=== PATIENT | female | born 1940 ===

== ENCOUNTER 2022-11-25 10:44 | Emergency (ER) | payer MEDICARE, OTHER, SELFPAY ==
--- NOTE | ~2022-11-25 | CT_ITS ---
EXAMINATION: CT ABDOMEN AND PELVIS WITH CONTRAST CLINICAL INFORMATION: Abdominal pain. COMPARISON: CT abdomen/pelvis 05/06/2022. TECHNIQUE: Multidetector volumetric images were obtained from the superior aspect of the liver through the pubic symphysis following administration 85 mL of Omnipaque 350 intravenous contrast. Sagittal and coronal reformatted images were obtained on the technologist's workstation. Oral contrast: No This CT examination was performed using dose optimization techniques as appropriate, variously including the following: *Automated exposure control *Adjustment of mA and/or kV according to patient size (this includes techniques or standardized protocols for targeted exams where dose is matched to indication/reason for exam; i.e. extremities or head) *Use of iterative reconstruction technique DLP: 511 mGy-cm. FINDINGS: LUNG BASES: Bibasilar subsegmental atelectasis versus scarring. No focal consolidation or pleural effusion. A micronodule in the medial right lower lobe, possibly calcified (3:45) is unchanged compared to 05/06/2022. LIVER, GALLBLADDER, AND BILIARY TREE: The liver is enlarged measuring 18 cm craniocaudally, increased from 17 cm and demonstrates decreased attenuation in comparison to the spleen suggesting hepatic steatosis. No focal liver lesion noted. Cholecystectomy. No biliary ductal dilatation. PANCREAS: Unremarkable. SPLEEN: The spleen measures 11.6 cm anterior to posteriorly, increased from 10 cm. No focal lesion. ADRENAL GLANDS: Unremarkable. KIDNEYS AND URETERS: Multifocal areas of cortical thinning/scarring with innumerable bilateral nonobstructive renal calculi and medullary nephrocalcinosis, largest in the lower pole of the left kidney measuring 5 mm (4:53). Symmetric nephrograms. Water density cyst in the posteromedial left kidney (2:31) for which no imaging followup is recommended. No hydronephrosis. No significant perinephric fat stranding. BLADDER: Unremarkable. GASTROINTESTINAL TRACT: Severe colonic diverticulosis with equivocal very mild pericolonic fat stranding in the sigmoid and rectosigmoid junction (4:37 and 4:56). Small hiatal hernia. The stomach and the small bowel are nondilated. The appendix is not definitely visualized; however, there are no regional inflammatory changes in the right lower quadrant to suspect acute appendicitis. ABDOMINAL WALL: No significant hernia is appreciated. LYMPH NODES: Mesenteric fatty haziness in the upper abdomen (2:35) is slightly increased compared to 05/06/2022. There are associated prominent but subcentimeter short axis mesenteric lymph nodes, also slightly increased in size and number. Scattered additional prominent but subcentimeter in short axis retroperitoneal and pelvic lymph nodes are not convincingly changed. VASCULAR: Abdominal aorta is of normal diameter with scattered atherosclerotic disease. Redemonstration of calcifications associated with the right gonadal vein/right ovary, unchanged. PELVIC VISCERA: Hysterectomy. OSSEOUS STRUCTURES: No acute or aggressive-appearing osseous abnormalities. Degenerative changes of the spine. CT/CT abdomen pelvis w IV con IMPRESSION: 1. Severe colonic diverticulosis with equivocal very mild pericolonic fat stranding in the sigmoid and rectosigmoid junction, raising the possibility of acute diverticulitis. 2. Increased mesenteric fatty haziness and increased size and number of prominent mesenteric lymph nodes, nonspecific. These findings could be seen in the setting of mesenteric panniculitis. 3. Increased hepatomegaly and increased size of the spleen. 4. Nonobstructive bilateral renal calculi and medullary nephrocalcinosis.
[2022-11-25 10:51] VITALS: BP 138/82; BP 154/89; PULSE 81; PULSE 94; RESP 16; TEMP 36.6; O2SAT 98; O2SAT 99; BMI 29.2
[2022-11-25 11:06] LABS: MANUAL DIFF FLAG NO
[2022-11-25 11:16] LABS: Basophils Percent Auto 0.3 % (0-2); Eosinophils Absolute Auto 0.1 X10*3/uL (0.0-0.4); Eosinophils Percent Auto 1.4 % (0-4); Hematocrit 40.6 % (37.0-47.0); Hemoglobin 13.7 g/dl (12.0-16.0); Imm Gran Abs Auto 0.01 X10*3/uL (0.00-0.03); Imm Gran Pct Auto 0.2 % (0.0-0.4); Lymphocytes Absolute Auto 1.5 X10*3/uL (1.2-4.9); Lymphocytes Percent Auto 24.1 % (20-40); Mean Corpuscular HGB Conc 33.7 g/dl (31.0-35.0); Mean Corpuscular Hemoglobin 31.9 pg (27.0-33.0); Mean Corpuscular Volume 94.4 fL (80.0-98.0); Mean Platelet Volume 10.2 fL (9.4-12.3); Monocytes Absolute Auto 0.7 X10*3/uL (0.1-1.2); Monocytes Percent Auto 11.7 % (2-11); Neutrophils Absolute Auto 3.9 x10*3/uL (2.0-8.3); Neutrophils Percent Auto 62.3 % (45-73); Platelet Count 231 X10*3/uL (160-400); Red Cell Distribution Width 13.8 % (11.0-16.0); White Blood Count 6.3 X10*3/uL (4.8-10.8)
[2022-11-25 11:55] LABS: OBS Int Ctl Valid YES; OBS1 NEGATIVE (NEGATIVE)
--- NOTE | 2022-11-25 12:00 | ED.NAVMDI ---
HPI - Nausea/Vomiting/Diarrhea General Chief complaint: Nausea/Vomiting/Diarrhea Stated complaint: nausea, abd pain x3 days from [facility] living Time Seen by Provider: 11/25/22 11:05 Source: patient History of Present Illness HPI Narrative: Patient with 3 days of nausea vomiting diarrhea and abdominal pain. Her had a similar syndrome prior to her getting sick. She is feeling very fatigued. She is concerned that her potassium may be low she normally needs to take potassium supplementation and has been unable to take any oral medication for the past 3 days secondary to the above symptoms. No fevers or chills. Her diarrhea she says has been black but she has been taking Pepto-Bismol and attributed to that No history of GI bleed Related Data Previous Rx's Medication Instructions Recorded ondansetron 4 mg disintegrating 4 mg PO Q8H PRN nausea and 11/25/22 tablet vomiting #14 tabs Allergies Allergy/AdvReac Type Severity Reaction Status Date / Time No Known Allergies Allergy Verified 11/25/22 10:59 Review of Systems Constitutional: Comments: General malaise and fatigue. No fevers or chills Cardiovascular: Comments: No chest pain Respiratory: Comments: No cough or dyspnea Gastrointestinal: Gastrointestinal: Reports as per HPI Genitourinary: Genitourinary: Reports no additional female genitourinary complaints Musculoskeletal: Musculoskeletal: Reports no additional musculoskeletal complaints Integumentary/Breasts: Comments: No rashes skin color changes Neurologic: Comments: No focal weakness PMFSH Social History Social History Alcohol intake: current Alcohol intake frequency: holidays/special occasions only Smoked in Last 30 Days: No Use of substances other than those prescribed or required for medical reasons: No Advance Directives: Yes Advance Directives on File: No Physical Exam Vital Signs: Vital Signs: Last Vital Signs Temp 98.2 F 11/25/22 14:10 Pulse 73 11/25/22 14:10 Resp 12 11/25/22 14:10 BP 129/82 11/25/22 14:10 Pulse Ox 98 11/25/22 14:10 O2 Del Method 11/25/22 14:10 BMI result Body Mass Index 29.2 Const: Other: Awake and alert. No acute distress Resp: Other: Clear and equal bilaterally without wheezes rales rhonchi Cardio: Other: Regular rate and rhythm without murmurs rubs or gallops GI: Other: Soft. Diffusely tender. No guarding or rebound. Nondistended. Skin: Other: Warm pink and dry Neuro: Other: No focal deficits Medications Administered Discontinued Medications Generic Name Dose Route Start Last Admin Trade Name Casey PRN Reason Stop Dose Admin Sodium Chloride 500 mls @ 500 mls/hr 11/25/22 12:00 11/25/22 14:01 Ns IV 11/25/22 12:59 Infused .Q1H TRINO Infusion Iohexol 100 ml 11/25/22 13:00 11/25/22 13:00 Iohexol 350 Mg/Ml 100 Ml Infus..Btl IV 11/25/22 13:01 85 ml ONCE ONE Administration Ondansetron HCl 4 mg 11/25/22 11:56 11/25/22 12:34 Ondansetron Hcl 4 Mg/2 Ml Vial IVPUSH 11/25/22 11:57 4 mg ONCE ONE Administration Medical Decision Making Medical Decision Making MDM Narrative: Patient with likely viral gastroenteritis which has been prominent in her assisted living including her . The given amount of tenderness with need to rule out colitis. Dehydration likely Electrolyte abnormality possible Await for CMP results. Anticipate CT scan with IV contrast if creatinine is normal. IV fluids ordered. Zofran for nausea. 16:21. CT scan shows possible mild colonic thickening with large amounts of diverticulosis. She does not have focal pain however. And especially in the setting of severe diarrhea which has been watery, and similar to multiple other residents in the assisted living, I do not think this is consistent with diverticulitis. It is more likely viral colitis. No antibiotics needed at this point. She is hungry and would like to eat and drink. Given this, she is stable for discharge home. Tylenol for headache. Lab Data 11/25/22 10:59 11/25/22 10:59 Labs: Lab Results 11/25/22 11/25/22 11/25/22 Range/Units 10:59 11:45 11:48 WBC 6.3 (4.8-10.8) X10*3/uL RBC 4.30 (4.20-5.50) X10*6/uL Hgb 13.7 (12.0-16.0) g/dl Hct 40.6 (37.0-47.0) % MCV 94.4 (80.0-98.0) fL MCH 31.9 (27.0-33.0) pg MCHC 33.7 (31.0-35.0) g/dl RDW 13.8 (11.0-16.0) % Plt Count 231 (160-400) X10*3/uL MPV 10.2 (9.4-12.3) fL Immature Gran % (Auto) 0.2 (0.0-0.4) % Neut % (Auto) 62.3 (45-73) % Lymph % (Auto) 24.1 (20-40) % [place] % (Auto) 11.7 H (2-11) % Eos % (Auto) 1.4 (0-4) % Baso % (Auto) 0.3 (0-2) % Lymph # (Auto) 1.5 (1.2-4.9) X10*3/uL [place] # (Auto) 0.7 (0.1-1.2) X10*3/uL Eos # (Auto) 0.1 (0.0-0.4) X10*3/uL Baso # (Auto) 0.0 (0.0-0.2) X10*3/uL Abs Immat Gran (auto) 0.01 (0.00-0.03) X10*3/uL Absolute Neuts (auto) 3.9 (2.0-8.3) x10*3/uL Absolute Nucleated RBC 0.000 (0.0-0.012) X10*3/uL Nucleated RBC % (auto) 0.0 (0.0-0.2) /100WBC Sodium 144 (135-145) mmol/L Potassium 4.0 (3.3-5.1) mmol/L Chloride 107 (96-108) mmol/L Carbon Dioxide 30 H (22-29) mmol/L Anion Gap 11 L (12-20) BUN 11 (9-16) mg/dL Creatinine 0.72 (0.5-1.4) mg/dL Estim Creat Clear Calc 54.9 Estimated GFR > 60 Random Glucose 138 H (60-115) mg/dL Calcium 9.4 (8.4-10.2) mg/dL Total Bilirubin 1.9 H (0.0-1.0) mg/dL AST 57 H (5-31) U/L ALT 52 H (0-31) U/L Alkaline Phosphatase 50 (39-117) U/L Total Protein 6.3 L (6.5-8.0) g/dL Albumin 4.1 (3.5-5.0) g/dL Stool Occult Blood NEGATIVE (NEGATIVE) Discharge Plan Discharge Clinical Impression: Gastroenteritis Patient Disposition: Home, Self-Care Instructions: Gastroenteritis (ED) Additional Instructions: Drink plenty of liquids. Return if worse or if you experience significant abdominal pain. Zofran is for nausea. Prescriptions: New ondansetron 4 mg tablet,disintegrating 4 mg PO Q8H PRN (Reason: nausea and vomiting) Qty: 14 0RF
[2022-11-25 12:08] LABS: Alanine Aminotransferase 52 U/L (0-31); Albumin Level 4.1 g/dL (3.5-5.0); Alkaline Phosphatase 50 U/L (39-117); Anion Gap 11 (12-20); Aspartate Amino Transferase 57 U/L (5-31); Bilirubin Total 1.9 mg/dL (0.0-1.0); Blood Urea Nitrogen 11 mg/dL (9-16); Calcium 9.4 mg/dL (8.4-10.2); Carbon Dioxide 30 mmol/L (22-29); Chloride 107 mmol/L (96-108); Creatinine Clr Calc Pharmacy 54.9; Estimated Glomerular Filt Rate > 60; Glucose Random 138 mg/dL (60-115); Sodium 144 mmol/L (135-145); Total Protein 6.3 g/dL (6.5-8.0)
[2022-11-25] MEDS: ondansetron HCL 4 MG/2 ML VIAL IVPUSH (12:34)
[2022-11-25] MEDS: 0.9 % Sodium Chloride 500 ML IV (12:34)
[2022-11-25 12:35] VITALS: BP 133/72; PULSE 69; RESP 18; O2SAT 97
[2022-11-25] MEDS: iohexoL 350 MG/ML 100 ML INFUS..BTL IV (13:00)
[2022-11-25 14:10] VITALS: BP 129/82; PULSE 73; RESP 12; TEMP 36.8; O2SAT 98
[2022-11-25] MEDS: Acetaminophen 325 MG TABLET 650 MG PO (16:48)
== END 2022-11-25 16:50 | disposition home or self-care (01) ==
PROVIDERS: Emergency Provider Emergency Medicine
DX: K52.9 Noninfective gastroenteritis and colitis, unspecified (principal); R11.2 Nausea with vomiting, unspecified
CPT/HCPCS: 36415; 74177; 80053; 82272; 85025; 96361; 96374; 99284; 99285; J2405; Q9967

== ENCOUNTER 2023-06-18 19:18 | Emergency (ER) | payer MEDICARE, OTHER, SELFPAY ==
--- NOTE | ~2023-06-18 | CT_ITS ---
EXAMINATION: CT CERVICAL SPINE WITHOUT CONTRAST CLINICAL INFORMATION: Fall. COMPARISON: None available. TECHNIQUE: 3 minutes thin axial and reformatted 2 mm thin sagittal and coronal images of cervical spine were obtained. This CT examination was performed using dose optimization techniques as appropriate, variously including the following: *Automated exposure control *Adjustment of mA and/or kV according to patient size (this includes techniques or standardized protocols for targeted exams where dose is matched to indication/reason for exam; i.e. extremities or head) *Use of iterative reconstruction technique DLP: 547 mGy-cm FINDINGS: On sagittal reconstructed images there is maintained cervical lordosis. There is grade 1 retrolisthesis listhesis C5 over C6. Rest the vertebral alignment is normal. There is loss of C5-C6 and C6-C7 disc heights with mild ventral and posterior spondylosis. The craniovertebral junction and the C1-C2 alignment is normal. There is no visible acute fracture, dislocation or subluxation seen. The craniovertebral junction and C1-C2 alignment is normal. There is moderate right C3-C4 and C4-C5 facet joint arthropathy and hypertrophy. The prevertebral and paravertebral soft tissues are normal. The bronchial airway is widely patent. Lung apices are clear. The thyroid lobes are symmetrical and normal. There is mild left TM joint arthropathy. CT/CT cervical spine wo IV con IMPRESSION: Grade 1 retrolisthesis C5 over C6 with spondylosis and degenerative disc changes C5-C6 and C6-C7 disc levels. No visible acute fracture, dislocation or subluxation seen. Fleischner guidelines were followed.
--- NOTE | ~2023-06-18 | XR_ITS ---
EXAMINATION: XR KNEE, LEFT CLINICAL INFORMATION: Fall, pain. COMPARISON: None available. TECHNIQUE: Four views of the left knee. FINDINGS: There is a total knee prosthesis with the prosthetic components in satisfactory alignment. There is no acute fracture or dislocation. There is no abnormal joint effusion. XR/XR knee LT 4V IMPRESSION: Total left knee prosthesis is in satisfactory alignment. No visible acute fracture or dislocation seen.
--- NOTE | ~2023-06-18 | CT_ITS ---
EXAMINATION: CT HEAD WITHOUT CONTRAST CLINICAL INFORMATION: Fall, head strike. COMPARISON: None available. TECHNIQUE: Contiguous axial imaging was performed from the skull base to vertex without intravenous administration of contrast. This CT examination was performed using dose optimization techniques as appropriate, variously including the following: *Automated exposure control *Adjustment of mA and/or kV according to patient size (this includes techniques or standardized protocols for targeted exams where dose is matched to indication/reason for exam; i.e. extremities or head) *Use of iterative reconstruction technique DLP: 678 mGy-cm FINDINGS: There is no acute intra-axial, extra-axial bleed, masses or midline shift. There is no acute infarct in evolution. There is no edema. The rao to white matter differentiation is maintained. The lateral ventricles are symmetrical in size and configuration but mildly enlarged. Bone windows reveal no calvarial abnormality. There is no scalp soft tissue abnormality. Bilateral paranasal sinuses and mastoid air cells are well-aerated. CT/CT head/brain wo IV con IMPRESSION: No acute intracranial process seen.
[2023-06-18 19:33] VITALS: BP 149/70; PULSE 68; RESP 18; O2SAT 98; BMI 28.7
[2023-06-18] MEDS: Acetaminophen 325 MG TABLET 975 MG PO (20:11)
--- NOTE | 2023-06-18 20:50 | ED.FALL ---
HPI - Fall General Chief Complaint: Fall Stated Complaint: fall w/head/ neck pain Time Seen by Provider: 06/18/23 20:50 Source: patient and EMS Mode of arrival: EMS Limitations: no limitations History of Present Illness HPI Narrative: 83-year-old female came in for evaluation after a mechanical fall. Patient was walking her dog when she tripped on uneven area of the sidewalk patient fell forward tried to ease her fall with both hands but fell down hitting her left side of the face. No LOC, complaining of forehead pain. Right-sided neck pain, no upper extremities weakness or numbness, no chest pain, no shortness of breath, no abdominal pain. Left knee pain patient s/p left knee arthroplasty. Not on AC. Related Data Previous Rx's Medication Instructions Recorded ondansetron 4 mg disintegrating 4 mg PO Q8H PRN nausea and 11/25/22 tablet vomiting #14 tabs Allergies Allergy/AdvReac Type Severity Reaction Status Date / Time No Known Allergies Allergy Verified 11/25/22 10:59 Review of Systems Review of Systems: All other systems are reviewed and are negative Constitutional: Reports as per HPI and Reports no additional constitutional complaints Eyes: Reports as per HPI and Reports no additional eye complaints Reports system reviewed and no additional complaints, except as documented Cardiovascular: Reports as per HPI and Reports no additional cardiovascular complaints Respiratory: Reports as per HPI and Reports no additional respiratory complaints Gastrointestinal: Reports as per HPI and Reports no additional gastrointestinal complaints Genitourinary: Reports no additional female genitourinary complaints Musculoskeletal: Reports no additional musculoskeletal complaints Skin/Breast: Reports system reviewed and no additional complaints, except as docu Psychiatric: Reports no additional psychiatric complaints Endocrine: Reports no additional endocrine complaints Hematologic/Lymphatic: Reports no additional hematologic/lymphatic complaints Allergic/Immunologic: Reports no additional allergic/immunologic complaints Reports system reviewed and no additional complaints, except as documented and Reports Abnormal speech present [facility] Social History Social History Alcohol intake: current Alcohol intake frequency: holidays/special occasions only Advance Directives: No Advance Directives Information Provided: No Physical Exam Vital Signs: Vital Signs: Last Vital Signs Pulse 68 06/18/23 19:33 Resp 18 06/18/23 19:33 BP 149/70 H 06/18/23 19:33 Pulse Ox 98 06/18/23 19:33 O2 Del Method Room Air 06/18/23 19:33 BMI result Body Mass Index 28.7 Vital signs have been reviewed and appear to be correct. Blood pressure elevated. Heart rate normal. Respiratory rate normal. Temperature normal. Oxygen saturation normal. Appearance: Alert. Oriented X3. No acute distress. Head: Small hematoma to above upper lip, forehead with small area of ecchymosis, left central upper incisor is slightly loose. Eyes: PERRLA. EOMI. Conjunctiva and sclera normal. Eyelids normal. ENT: TM's Normal. Pharynx normal. Uvula midline. Moist mucous membranes. No trismus noted. No drooling noted. No muffled voice noted. Neck: Normal inspection. Neck supple. FROM. No adenopathy. Thyroid Normal. No meningeal signs. No neck mass noted. CVS: Normal heart rate and rhythm. Heart sound normal. No murmurs noted. Pulses normal throughout. Respiratory: No respiratory distress. Painless inspiration. Breath sounds normal. No wheezes/rales/rhonchi noted. Chest nontender. No accessory muscle usage noted or decreased air movement noted. Abdomen: Soft and nontender. Bowel sounds normal in all 4 quadrants. No distention noted. No organomegaly noted. No visible injury noted. Back: No CVA tenderness. Full range of motion noted. Skin: Skin warm and dry. Normal skin color. Normal skin turgor. No rashes/lesions/lacerations noted. Extremities: No lower extremity edema. Extremities exhibit normal range of motion. Extremities nontender. Neuro: Oriented X 3. Cranial nerve exam: II-XII are grossly intact No motor deficit. No sensory deficit. Reflexes normal. Course Course Course Narrative: 83-year-old female s/p mechanical fall while she was walking her dog, neuro exam is intact with a GCS of [address] head [address] for intracranial pathology. Cervical spine is also unremarkable for fracture or subluxation. Patient S/P left knee arthroplasty appear intact on the x-ray. Medications Administered Discontinued Medications Generic Name Dose Route Start Last Admin Trade Name Freq PRN Reason Stop Dose Admin Acetaminophen 975 mg 06/18/23 20:00 06/18/23 20:11 Acetaminophen 325 Mg Tablet PO 06/18/23 20:01 975 mg ONCE ONE Administration Medical Decision Making Differential Diagnosis Differential Diagnoses: The differential diagnosis associated with the presentation includes ( Intracranial bleed, skull fracture, cervical spine fracture, cervical spine subluxation, left knee fracture.) Admission/Observation Consideration of admission/observation: Escalation of care including admission/observation considered Independent Interpretation I performed an independent interpretation of an: Plain X-Ray ( Left knee x-ray: No acute fracture or dislocation.) and CT Scan ( Head/C-spine: No acute intra cranial pathology, no cervical spine fracture or subluxation.) Radiology Impression Discussion of test interpretation with radiology: I have reviewed the radiologist's reading. Discharge Plan Discharge Clinical Impression: Closed head injury, Contusion of knee, left Patient Disposition: Home, Self-Care Instructions: Head Injury (ED) Prescriptions: No Action ondansetron 4 mg tablet,disintegrating 4 mg PO Q8H PRN (Reason: nausea and vomiting) Qty: 14 0RF
== END 2023-06-18 22:10 | disposition home or self-care (01) ==
PROVIDERS: Emergency Provider Emergency Medicine; PCP Pediatrics
DX: S09.90XA Unspecified injury of head, initial encounter (principal); S80.02XA Contusion of left knee, initial encounter; R51.9 Headache, unspecified; M54.2 Cervicalgia; M25.562 Pain in left knee; W01.0XXA Fall on same level from slipping, tripping and stumbling without subsequent striking against object, initial encounter; Y93.9 Activity, unspecified; Y92.9 Unspecified place or not applicable; Y99.9 Unspecified external cause status
CPT/HCPCS: 70450; 72125; 73564; 99284

== ENCOUNTER 2024-05-06 09:45 | Emergency (ER) | payer MEDICARE, OTHER, SELFPAY ==
--- NOTE | ~2024-05-06 | CT_ITS ---
EXAMINATION: CT HEAD WITHOUT CONTRAST CLINICAL INFORMATION: Pain. COMPARISON: CT scan of the head dated 06/18/2023. TECHNIQUE: Contiguous axial imaging was performed from the skull base to vertex without intravenous administration of contrast. This CT examination was performed using dose optimization techniques as appropriate, variously including the following: *Automated exposure control *Adjustment of mA and/or kV according to patient size (this includes techniques or standardized protocols for targeted exams where dose is matched to indication/reason for exam; i.e. extremities or head) *Use of iterative reconstruction technique DLP: 659.65 mGy-cm FINDINGS: There is no evidence of acute intracranial hemorrhage or territorial infarction. No abnormal mass-effect or midline shift is seen. Reilly to white matter differentiation is well preserved. No extra-axial fluid collections are identified. The ventricles and sulci are mildly enlarged. There is prominent periventricular and deep white matter low-attenuation seen, consistent with ischemic small vessel disease. Calcification of the vertebrobasilar arteries and the carotid siphons noted. There is mild leftward nasal septal deviation with a prominent spur at the apex projecting into the left nasal passage. The osseous structures and soft tissues are normal. The mastoid air cells and visualized portions of the paranasal sinuses are well-aerated. CT/CT head/brain wo IV con IMPRESSION: 1. No acute intracranial pathology. 2. Prominent findings of ischemic small vessel disease.
--- NOTE | ~2024-05-06 | XR_ITS ---
EXAMINATION: XR CHEST CLINICAL INFORMATION: Weakness COMPARISON: CTA heart 01/02/2022 TECHNIQUE: 2 views of the chest were obtained. FINDINGS: No significant abnormality is noted involving the heart, lungs, mediastinum, bony thorax or soft tissues. Degenerative changes are present in the spine. XR/XR chest 2V IMPRESSION: Unremarkable examination.
[2024-05-06 09:54] VITALS: BP 176/92; PULSE 96; O2SAT 98; BMI 30.4
--- NOTE | 2024-05-06 09:58 | ED_ITS ---
HPI - General Adult General Chief complaint: General Medical Stated complaint: HEADACHE ABD PAIN WEAKNESS Time Seen by Provider: 05/06/24 09:58 Source: patient and EMS Mode of arrival: EMS Limitations: no limitations History of Present Illness ED Provider: Selin Camarena PA-C HPI narrative: Patient is an 84 year old assigned female at with no reported medical history presenting to the emergency department today with generalized weakness and a headache. Patient states that over the last week or so she has felt generally unwell with weakness, a headache, and bilateral lower leg cramping. Patient denies any dizziness, lightheadedness, abdominal pain, nausea, vomiting, fever, chills, blurry vision, double vision, loss of vision, chest pain, difficulty breathing, shortness of breath, back pain, night sweats, pain with urination, increased urinary frequency, increased urinary urgency, blood in her urine or stool, syncope or a near syncopal episode, recent trauma or falls, bowel incontinence, bladder incontinence, or any other complaints at this time. Onset (ago): week(s) (1) Relieving factors: none Exacerbating factors: none Associated symptoms: headaches and weakness Treatments prior to arrival: none Related Data Previous Rx's ?Medication ?Instructions ?Recorded ondansetron 4 mg disintegrating 4 mg PO Q8H PRN nausea and 11/25/22 tablet vomiting #14 tabs Allergies Allergy/AdvReac Type Severity Reaction Status Date / Time No Known Allergies Allergy Verified 05/06/24 09:56 Review of Systems 2 Constitutional: Constitutional: Reports no additional constitutional complaints, Denies chills, Denies fever(s), Reports headache(s), Denies night sweats and Reports weakness Eyes: Eyes: Reports no additional eye complaints, Denies blurry vision, Denies change in vision, Denies diplopia, Denies eye discharge, Denies loss of vision and Denies eye pain ENT: Denies dizziness and Reports headache(s) Cardiovascular: Cardiovascular: Reports no additional cardiovascular complaints, Denies chest pain, Denies lightheadedness, Denies Loss of Consciousness and Denies dyspnea Respiratory: Respiratory: Reports no additional respiratory complaints and Denies dyspnea Gastrointestinal: Gastrointestinal: Reports no additional gastrointestinal complaints, Denies abdominal pain, Denies melena, Denies hematochezia, Denies change in bowel habits and Denies change in stool character Genitourinary: Genitourinary: Denies hematuria, Denies urinary frequency, Denies dysuria, Denies urinary incontinence, Denies urinary hesitancy and Denies urinary urgency Musculoskeletal: Musculoskeletal: Reports no additional musculoskeletal complaints, Denies numbness and Denies tingling Neurologic: Denies dizziness, Reports headache(s), Denies loss of vision, Denies numbness, Denies tingling and Reports weakness Psychiatric: Psychiatric: Reports no additional psychiatric complaints Endocrine: Endocrine: Reports no additional endocrine complaints Hematologic/Lymphatic: Hematologic/Lymphatic: Reports no additional hematologic/lymphatic complaints Allergic/Immunologic: Allergic/Immunologic: Reports no additional allergic/immunologic complaints [facility] Past Medical History Attestation statement: The following information was validated with the patient. Source: old records reviewed and nursing notes reviewed Social History Social History Alcohol intake: current Alcohol intake frequency: does not drink Smoked in Last 30 Days: No Use of substances other than those prescribed or required for medical reasons: No Advance Directives: No Advance Directives Information Provided: No Do you have a plan to hurt others: No Plan Physical Exam ED Vital Signs: Vital Signs - 24 hr 05/06/24 10:35 05/06/24 14:39 Temperature 97.7 F Pulse Rate 86 71 Respiratory Rate 14 14 Blood Pressure 144/89 H 111/68 Pulse Oximetry 97 99 Oxygen Delivery Method Room Air Room Air BMI result Body Mass Index 30.4 Const General: cooperative, no acute distress, alert and awake Nutritional Appearance: well nourished Orientation/consciousness: patient oriented x3 Limitations: no limitations [facility] Head: Yes normal to inspection and Yes atraumatic Ears: hearing grossly normal bilaterally and external ears normal General nose exam: Normal external nose present, no nasal discharge noted and no epistaxis Face and sinus: Yes normal facial exam, No abrasion and No laceration Mouth: Normal oral and palatal mucosa present, no drooling and no muffled voice Eyes General: appearance normal, both eyes and all related structures Periorbital: periorbital findings normal Eyelids: Yes eyelids normal Conjunctivae: conjunctivae normal Pupils: Equal, round and reactive pupils present EOM: EOMs intact bilaterally Neck Neck: Yes normal visual inspection, Yes full ROM and Yes no lymphadenopathy Chest Chest palpation & inspection: normal inspection of the chest Resp Effort & Inspection: normal respiratory effort and able to speak in complete sentences GI Inspection: Yes normal to inspection Neuro General: patient oriented x3 and moves all extremities Cranial nerves: Yes Equal, round and reactive pupils present Cognition (Neuro): normal cognition Extrem General: Yes normal to inspection, Yes full ROM and Yes capillary refill normal Psych Appearance: grossly normal Mental Status: mental status grossly normal Affect: normal affect Attitude: cooperative Thought process: Normal thought process present Thought content: Normal thought content present Insight: Good insight present (Psych) Medications Administered Discontinued Medications Generic Name Dose Route Start Last Admin Trade Name Casey PRN Reason Stop Dose Admin Sodium Chloride 1,000 mls @ 999 mls/hr 05/06/24 12:30 05/06/24 12:40 Ns IV 05/06/24 13:30 999 mls/hr .Q1H1M TRINO Administration Ketorolac Tromethamine 15 mg 05/06/24 15:19 05/06/24 15:30 Ketorolac Tromethamine 15 Mg/Ml Vial IVPUSH 05/06/24 15:20 15 mg ONCE ONE Administration Medical Decision Making Medical Decision Making [facility] Narrative: Patient is an 84 year old assigned female at with no reported medical history presenting to the emergency department today with a headache and feeling generally unwell. Patient's physical exam was unremarkable. Patient's blood work showed a slightly elevated WBC count of 12.7 which is consistent with a stress reaction. Patient's urine showed no acute process. Patient's EKG was unremarkable. Patient's chest x-ray and head CT showed no acute process. I explained my physical exam findings as well as all test results to the patient. I answered all questions asked by the patient. I stressed the importance of the patient taking her medication as directed (either prescribed or as the over the counter packaging recommends). I stressed the importance of the patient following up with her primary care provider. I stressed the importance of the patient returning to the emergency department immediately if her symptoms were to worsen or if she were to develop any dizziness, shortness of breath, difficulty breathing, chest pain, blurry vision, loss of vision, nausea, vomiting, abdominal pain, fever, chills, back pain, or any other complaints. Patient verbalized agreement and understanding with this treatment plan and discharge. Differential Diagnosis Differential Diagnoses: The differential diagnosis associated with the presentation includes Headache Migraine Weakness Viral illness Admission/Observation Consideration of admission/observation: Escalation of care including admission/observation considered Patient would have been admitted to the hospital had her work up had any findings where hospital admission was appropriate and her clinical presentation warranted hospital admission. Lab Data [facility] Lab Attestation statement: I reviewed the patient's lab results. My interpretation of these results are in the [facility] Rationale portion of this note. 05/06/24 10:49 05/06/24 10:49 Labs: Lab Results 05/06/24 05/06/24 Range/Units 10:45 10:49 WBC 12.7 H (4.8-10.8) X10*3/uL RBC 4.68 (4.20-5.50) X10*6/uL Hgb 15.5 (12.0-16.0) g/dl Hct 44.1 (37.0-47.0) % MCV 94.2 (80.0-98.0) fL MCH 33.1 H (27.0-33.0) pg MCHC 35.1 H (31.0-35.0) g/dl RDW 12.3 (11.0-16.0) % Plt Count 263 (160-400) X10*3/uL MPV 9.8 (9.4-12.3) fL Immature Gran % (Auto) 0.5 H (0.0-0.4) % Neut % (Auto) 76.6 H (45-73) % Lymph % (Auto) 16.3 L (20-40) % [place] % (Auto) 5.5 (2-11) % Eos % (Auto) 0.7 (0-4) % Baso % (Auto) 0.4 (0-2) % Lymph # (Auto) 2.1 (1.2-4.9) X10*3/uL [place] # (Auto) 0.7 (0.1-1.2) X10*3/uL Eos # (Auto) 0.1 (0.0-0.4) X10*3/uL Baso # (Auto) 0.1 (0.0-0.2) X10*3/uL Abs Immat Gran (auto) 0.06 H (0.00-0.03) X10*3/uL Absolute Neuts (auto) 9.8 H (2.0-8.3) x10*3/uL Absolute Nucleated RBC 0.000 (0.0-0.012) X10*3/uL Nucleated RBC % (auto) 0.0 (0.0-0.2) /100WBC Sodium 140 (135-145) mmol/L Potassium 3.6 (3.3-5.1) mmol/L Chloride 105 (96-108) mmol/L Carbon Dioxide 27 (22-29) mmol/L Anion Gap 12 (12-20) BUN 14 (9-16) mg/dL Creatinine 0.78 (0.5-1.4) mg/dL Estim Creat Clear Calc 49.9 Estimated GFR > 60 Random Glucose 155 H (60-115) mg/dL Calcium 10.1 D (8.4-10.2) mg/dL Magnesium 1.9 (1.6-2.6) mg/dL Total Bilirubin 1.5 H (0.0-1.0) mg/dL AST 29 (5-31) U/L ALT 44 H (0-31) U/L Alkaline Phosphatase 70 (39-117) U/L Troponin I High Sens 2.9 (<3.5-17.0) ng/L Total Protein 6.8 (6.5-8.0) g/dL Albumin 4.2 (3.5-5.0) g/dL Urine Color Yellow Urine Appearance Clear Urine pH 7.5 (5.0-9.0) Ur Specific [place] 1.010 (1.005-1.025) Urine Protein Negative (Neg-Trace) mg/dL Urine Glucose (UA) Negative (Negative) mg/dL Urine Ketones Negative (Negative) mg/dL Urine Blood Negative (Negative) Urine Nitrite Negative (Negative) Ur Leukocyte Esterase Negative (Negative) Influenza Type A (PCR) NEGATIVE (Negative) Influenza Type B (PCR) NEGATIVE (Negative) RSV RNA Qual (PCR) NEGATIVE (Negative) SARS-CoV-2 RNA (RT-PCR) NEGATIVE (Negative) Independent Interpretation I performed an independent interpretation of an: EKG, Plain X-Ray and CT Scan Interpretation: My interpretation is in agreement with the radiologist's impression of these imaging studies. - EXAMINATION: XR CHEST CLINICAL INFORMATION: Weakness COMPARISON: CTA heart 01/02/2022 TECHNIQUE: 2 views of the chest were obtained. FINDINGS: No significant abnormality is noted involving the heart, lungs, mediastinum, bony thorax or soft tissues. Degenerative changes are present in the spine. XR/XR chest 2V IMPRESSION: Unremarkable examination. Dictated By: Hitesh Crews MD Signed By: Electronically signed by Hitesh Crews MD 05/06/24 1240 - EXAMINATION: CT HEAD WITHOUT CONTRAST CLINICAL INFORMATION: Pain. COMPARISON: CT scan of the head dated 06/18/2023. TECHNIQUE: Contiguous axial imaging was performed from the skull base to vertex without intravenous administration of contrast. This CT examination was performed using dose optimization techniques as appropriate, variously including the following: *Automated exposure control *Adjustment of mA and/or kV according to patient size (this includes techniques or standardized protocols for targeted exams where dose is matched to indication/reason for exam; i.e. extremities or head) *Use of iterative reconstruction technique DLP: 659.65 mGy-cm FINDINGS: There is no evidence of acute intracranial hemorrhage or territorial infarction. No abnormal mass-effect or midline shift is seen. Reilly to white matter differentiation is well preserved. No extra-axial fluid collections are identified. The ventricles and sulci are mildly enlarged. There is prominent periventricular and deep white matter low-attenuation seen, consistent with ischemic small vessel disease. Calcification of the vertebrobasilar arteries and the carotid siphons noted. There is mild leftward nasal septal deviation with a prominent spur at the apex projecting into the left nasal passage. The osseous structures and soft tissues are normal. The mastoid air cells and visualized portions of the paranasal sinuses are well-aerated. CT/CT head/brain wo IV con IMPRESSION: 1. No acute intracranial pathology. 2. Prominent findings of ischemic small vessel disease. Dictated By: Saba Thrasher MD Signed By: Electronically signed by Saba Thrasher MD 05/06/24 1614 - Vent. Rate: 087 BPM Atrial Rate: 087 BPM P-R Int: 178 ms QRS Dur: 080 ms QT Int: 370 ms P-R-T Axes: 028 -42 000 degrees QTc Int: 445 ms Normal sinus rhythm Left axis deviation Abnormal ECG No previous ECGs available Electronically Signed By:TIMOTHY CHAUDHARY MD Dictated By: Timothy Chaudhary MD Signed By: Electronically signed by Timothy Chaudhary MD 05/06/24 1057 Radiology Impression Discussion of test interpretation with radiology: I have reviewed the radiologist's reading. Independent Historian Clinical information obtained from an independent historian. History obtained from or confirmed by: EMS (EMS provided additional history and confirmed the history provided by the patient.) Discharge Plan Discharge Clinical Impression: Headache Patient Disposition: Home, Self-Care Instructions: Acute Headache (DC) Additional Instructions: Follow up with your primary care provider. Return to the emergency department immediately if your symptoms worsen or if you develop any dizziness, shortness of breath, difficulty breathing, chest pain, blurry vision, loss of vision, nausea, vomiting, abdominal pain, fever, chills, back pain, or any other complaints. Prescriptions: No Action ondansetron 4 mg tablet,disintegrating 4 mg PO Q8H PRN (Reason: nausea and vomiting) Qty: 14 0RF Referrals: Poncho Wise MD [Primary Care Provider] - Interventions: ED Discharge Assessment Last Done: 05/06/24 17:29 Discharge Date/Time: 05/06/24 17:30 Print Language: Canadian
--- NOTE | 2024-05-06 09:58 | ECG_ITS ---
Test Reason : weakness Blood Pressure : / mmHG Vent. Rate : 087 BPM Atrial Rate : 087 BPM P-R Int : 178 ms QRS Dur : 080 ms QT Int : 370 ms P-R-T Axes : 028 -42 000 degrees QTc Int : 445 ms Normal sinus rhythm Left axis deviation Abnormal ECG No previous ECGs available Referred By: Selin Camarena Electronically Signed By:ZEYNEP CHAUDHARY MD
[2024-05-06 10:35] VITALS: BP 144/89; PULSE 86; RESP 14; TEMP 36.5; O2SAT 97
[2024-05-06 10:56] LABS: MANUAL DIFF FLAG NO
[2024-05-06 10:57] LABS: Basophils Absolute Auto 0.1 X10*3/uL (0.0-0.2); Basophils Percent Auto 0.4 % (0-2); Eosinophils Absolute Auto 0.1 X10*3/uL (0.0-0.4); Eosinophils Percent Auto 0.7 % (0-4); Hematocrit 44.1 % (37.0-47.0); Hemoglobin 15.5 g/dl (12.0-16.0); Imm Gran Abs Auto 0.06 X10*3/uL (0.00-0.03); Imm Gran Pct Auto 0.5 % (0.0-0.4); Lymphocytes Absolute Auto 2.1 X10*3/uL (1.2-4.9); Lymphocytes Percent Auto 16.3 % (20-40); Mean Corpuscular HGB Conc 35.1 g/dl (31.0-35.0); Mean Corpuscular Hemoglobin 33.1 pg (27.0-33.0); Mean Corpuscular Volume 94.2 fL (80.0-98.0); Mean Platelet Volume 9.8 fL (9.4-12.3); Monocytes Absolute Auto 0.7 X10*3/uL (0.1-1.2); Monocytes Percent Auto 5.5 % (2-11); Neutrophils Absolute Auto 9.8 x10*3/uL (2.0-8.3); Neutrophils Percent Auto 76.6 % (45-73); Platelet Count 263 X10*3/uL (160-400); Red Blood Count 4.68 X10*6/uL (4.20-5.50); Red Cell Distribution Width 12.3 % (11.0-16.0); White Blood Count 12.7 X10*3/uL (4.8-10.8)
[2024-05-06 11:01] LABS: Appearance Urine Clear; Color Urine Yellow; Glucose Urine UA Negative (Negative); Leukocyte Esterase Urine Negative (Negative); Nitrite Urine Negative (Negative); PH 7.5 (5.0-9.0); Urine Blood Negative (Negative); Urine Ketones Negative (Negative); Urine Protein Negative (Neg-Trace)
[2024-05-06 11:24] LABS: Alanine Aminotransferase 44 U/L (0-31); Albumin Level 4.2 g/dL (3.5-5.0); Alkaline Phosphatase 70 U/L (39-117); Anion Gap 12 (12-20); Aspartate Amino Transferase 29 U/L (5-31); Bilirubin Total 1.5 mg/dL (0.0-1.0); Blood Urea Nitrogen 14 mg/dL (9-16); Calcium 10.1 mg/dL (8.4-10.2); Carbon Dioxide 27 mmol/L (22-29); Chloride 105 mmol/L (96-108); Creatinine Clr Calc Pharmacy 49.9; Estimated Glomerular Filt Rate > 60; Glucose Random 155 mg/dL (60-115); Magnesium 1.9 mg/dL (1.6-2.6); Potassium 3.6 mmol/L (3.3-5.1); Sodium 140 mmol/L (135-145); Total Protein 6.8 g/dL (6.5-8.0)
[2024-05-06 11:32] LABS: Troponin-I High Sensitivity 2.9 ng/L (<3.5-17.0)
[2024-05-06 11:35] LABS: Influenza A PCR NEGATIVE (Negative); Influenza B PCR NEGATIVE (Negative); Resp Syncy Virus RNA Qual PCR NEGATIVE (Negative); SARS COV2 PCR INHOUSE NEGATIVE (Negative)
[2024-05-06] MEDS: 0.9 % Sodium Chloride 1,000 ML 999 ML IV (12:40)
[2024-05-06 14:39] VITALS: BP 111/68; PULSE 71; RESP 14; O2SAT 99
[2024-05-06] MEDS: Ketorolac Tromethamine 15 MG/ML VIAL IVPUSH (15:30)
[2024-05-06 17:29] VITALS: BP 140/70; PULSE 66; RESP 14; TEMP 36.5; O2SAT 98
== END 2024-05-06 17:30 | disposition home or self-care (01) ==
PROVIDERS: Physician Assistant Medical; Emergency Provider Student in an Organized Health Care Education/Training Program; PCP Pediatrics
DX: R51.9 Headache, unspecified (principal); R53.1 Weakness; Z03.818 Encounter for observation for suspected exposure to other biological agents ruled out
CPT/HCPCS: 0241U; 36415; 70450; 71046; 80053; 81003; 83735; 84484; 85025; 93005; 96374; 99284; J1885

== ENCOUNTER → 2024-05-06 09:58 | Outpatient (BNV) | payer MEDICARE, OTHER, SELFPAY | PROVIDERS: Emergency Provider Student in an Organized Health Care Education/Training Program; PCP Pediatrics; Visit Provider Internal Medicine Cardiovascular Disease | DX: R53.1 Weakness (principal) | CPT/HCPCS: 93010 ==

== ENCOUNTER 2025-01-13 06:10 | Outpatient (REF) | payer MEDICARE, OTHER, SELFPAY ==
[2025-01-13 06:13] LABS: MANUAL DIFF FLAG NO
--- OUTSIDE RECORDS SUMMARY | 2025-01-13 06:13 | XMS_ITS | Data Portability ---
Author Organization [facility], Main Office Address [address] [place] [address] Care Team Providers Care Painter Airbrush Name Role Phone PONCHO BRITTON Primary Care Provider ROBIN TSANG OTHER DREA VILA [employer] Rolling [employer] Operator ARLYN RODRIGUES Dredge Deckhand [phone] DYLON MATTHEW Gynecological/Oncology [phone] [facility] Welfare Case Worker [facility] Photoengraving Proofer Apprentice ZACK MEADOWS Orthopedic Surgeon [phone] DENNIS RINALDI Picture Booker DANIEL LYNCH Welfare Case Worker [facility] Sleep [facility] (RU BURGOS) Orthopedic Surgeon DIMA HELTON Urologist TYSON JEFFERY Violent Crimes Detective LUDY BUENROSTRO Outreach Worker JOSÉ ARGUELLES Virtual Classroom Manager Assessment No assessment recorded. Plan of Treatment Reminders Order Date Submit Date Provider Last Modified By Organization Details Last Modified Time Details Appointments telehe alth40 2024 01:45P M Poncho Britton MD Not available Not available Not available FOLLOW UP 30MIN 2024 01:45P Valente Britton MD Not available Not available Not available [email or web address] 2024 10:15A Valente Britton MD Not available Not available Not available Lab vitami n D, 25-hyd mariama, total, serum 2024 025 [facility] (Centralized Electronic Ordering - All Locations), Patient Can Go To The Location Of Their Choice, 01/08/2025 10:27:28 vitami n B12, serum 2024 025 KARIN [facility] (Centralized Electronic Ordering - All Locations), Patient Can Go To The Location Of Their Choice, 01/08/2025 10:27:28 BMP, serum or plasma 2024 025 KARIN [facility] (Centralized Electronic Ordering - All Locations), Patient Can Go To The Location Of Their Choice, 01/08/2025 10:27:28 TSH + free T4, serum 2024 025 KARIN [facility] (Centralized Electronic Ordering - All Locations), Patient Can Go To The Location Of Their Choice, 01/08/2025 10:27:28 BMP, serum or plasma 2024 025 KARIN [facility] (Centralized Electronic Ordering - All Locations), Patient Can Go To The Location Of Their Choice, 12/21/2024 08:07:32 vitami n B12, serum 2024 025 KARIN [facility] (Centralized Electronic Ordering - All Locations), Patient Can Go To The Location Of Their Choice, 12/06/2024 11:03:18 TSH, ultra- sensit pancho, serum 2024 025 KARIN [facility] (Centralized Electronic Ordering - All Locations), Patient Can Go To The Location Of Their Choice, 12/06/2024 11:03:17 HbA1c (hemog lobin A1c), blood 2024 025 KARIN [facility] (Centralized Electronic Ordering - All Locations), Patient Can Go To The Location Of Their Choice, 12/06/2024 11:03:17 CMP, serum or plasma 2024 025 KARIN [facility] (Centralized Electronic Ordering - All Locations), Patient Can Go To The Location Of Their Choice, [id number] 12/06/2024 11:03:17 Referral neurol ogist referr brando - pt is having recurr ent falls, memory defici ts and tremor s, referr ed to explor e moveme nt disord er 2024 025 [facility], [address] [facility], [address], [place], [address], 01/10/2025 15:24:07 Procedures None record ed. Surgeries None record ed. Imaging MRI, brain, w/o contra st - more falls, memory proble ms and tremor s 2024 025 [email or web address] Not available 01/10/2025 14:25:04 MRI, brain, w/o contra st - rule out mass/n ew CVA 2024 025 [email or web address] [facility] ([facility]), [address] [facility], [place], [address], 12/28/2024 09:53:52 Medication Orders fluoxe merline 20 mg capsul e 2024 025 [facility][id number], [address], [place] [place], [address], 01/12/2025 11:37:42 valacy clovir 1 gram tablet 2024 025 [id number], [address], [place], [address], 12/20/2024 11:40:53 amoxic illin 875 mg-pot assium clavul anate 125 mg tablet 2024 025 [facility] #0517, [address], [place], [address], 12/29/2024 05:01:39 albute rol sulfat e HFA 90 mcg/ac tuatio n aeroso l inhale r 2024 025 [facility]0517, [address], [place], [address], 12/06/2024 11:03:09 atorva statin 80 mg tablet 2024 025 [facility]0517, [address], [place], [address], 12/06/2024 11:08:23 indapa mide 1.25 mg tablet 2024 025 [facility] #0517, [address], [place], [address], 12/06/2024 11:03:09 Patient TargetsNo targets recorded. Patient Instructions Encounter Date Encounter Id Patient Instructions Last Modified By Organization Details Last Modified Time 12/06/2024 [id number] type 2 diabetes: care instructions awychowski Not available 12/06/2024 11:03:07 high blood pressure: care instructions awychowski Not available 12/06/2024 11:03:07 learning about high blood pressure awychowski Not available 12/06/2024 11:03:07 12/15/2024 [id number] Acute Sinusitis: Care Instructions pmadden Not available 12/15/2024 14:30:47 saline nasal washes: care instructions pmadden Not available 12/15/2024 14:30:47 eustachian tube problems: care instructions pmadden Not available 12/15/2024 14:30:47 Follow up if no improvement or if symptoms worsen. pmadden Not available 12/15/2024 14:32:04 12/20/2024 [id number] high blood pressure: care instructions awychowski Not available 12/20/2024 12:13:27 learning about high blood pressure awychowski Not available 12/20/2024 12:13:27 At [facility] follow up visit, all current and discharge medications (OTC, herbal therapies, supplements) reviewed and reconciled with patient and or caregiver, including potential side effects, drug interactions, instructions, and the consequences of not taking medication. Reviewed potential barriers to medication adherence, such as side effects from medication or cost of medication. lisa Not available 12/20/2024 11:37:53 01/04/2025 [id number] At [facility] follow up visit, all current and discharge medications (OTC, herbal therapies, supplements) reviewed and reconciled with patient and or caregiver, including potential side effects, drug interactions, instructions, and the consequences of not taking medication. Reviewed potential barriers to medication adherence, such as side effects from medication or cost of medication. delgers Not available 01/04/2025 10:45:34 01/08/2025 [id number] orthostatic vitals* ATHENAFAX Not available 01/08/2025 10:27:32 hypothyroidism: care instructions [email or web address] Not available 01/08/2025 10:27:12 Reason for Referral Neurologist Referral for Rec urrent falls pt is having recurrent falls, memory deficits and tremors, referred to explore movement disorder Referring Physician: May Monroe, Family Medicine, Encounter Date: 01/08/2025 Results Created Date Observation Date Name Description Value Unit Range Abnormal Flag Note LastModifiedBy Organization Detail LastModifiedTime 12/21/1912/21/2024 BASIC METAB OLIC PANEL (8) glucose 186 mg/dL 70-99 above high normal Not Available [facility] ([facility]) [address] [place], [address], 12/21/2024 08:07:31 12/21/1912/21/2024 BASIC METAB OLIC PANEL (8) BUN 10 mg/dL 8-27 normal Not Available [facility] ([facility]) [address] [place], [address], 12/21/2024 08:07:31 12/21/1912/21/2024 BASIC METAB OLIC PANEL (8) creatinine 0.68 mg/dL 0.57-1 .00 normal Not Available [facility] ([facility]) [address] [place], [address], 12/21/2024 08:07:31 0312/21/2024 BASIC METAB OLIC PANEL (8) eGFR 86 mL/mi n/1.7 3 >59 normal Not Available [facility] ([facility]) [address] [place], [address], 12/21/2024 08:07:31 12/21/1912/21/2024 BASIC METAB OLIC PANEL (8) BUN/creatini ne ratio 15 12-28 normal Not Available [facility] ([facility]) [address] [place], [address], 12/21/2024 08:07:31 12/21/1912/21/2024 BASIC METAB OLIC PANEL (8) sodium 139 mmol/ L 134-14 4 normal Not Available [facility] ([facility]) [address] [place], [address], 12/21/2024 08:07:31 12/21/1912/21/2024 BASIC METAB OLIC PANEL (8) potassium 3.3 mmol/ L 3.5-5. 2 below low normal Not Available [facility] ([facility]) [address] [place], [address], 12/21/2024 08:07:31 12/21/1912/21/2024 BASIC METAB OLIC PANEL (8) chloride 98 mmol/ L 96-106 normal Not Available [facility] ([facility]) [address] [place], [address], 12/21/2024 08:07:31 12/21/1912/21/2024 BASIC METAB OLIC PANEL (8) carbon dioxide, total 23 mmol/ L 20-29 normal Not Available [facility] ([facility] [address] [place], [address], 12/21/2024 08:07:31 12/21/1912/21/2024 BASIC METAB OLIC PANEL (8) calcium 9.6 mg/dL 8.7-10 .3 normal Not Available [facility] ([facility]) [address], [place], [address], 12/21/2024 08:07:31 12/16/19 25 ECG 12-le ad No observ ation record ed. [facility] [address] [facility] [address], [place], [address], 12/20/2024 12:03:54 Result Notes None recorded. Problems Name Problem SNOMED Code Status Onset Date Resolution Date Notes Provider Name and Address Organization Details Recorded Time Thyroid function tests abnormal [id number] Completed 201204/12/2014 IMPRESSI ON: MILD SBNORMAL ITY, WILL REASSESS IN 4-6 WEEKS.; RECORDED 02/09/20 13 10:23AM BY JANET HUMPHRIES MA, ANNOTATI ON/EMIGDIO Britton MD [address], [place], [address] , [facility] 6 09:37:22 Allergic rhinitis 16748312 Completed 201204/12/2014 RECORDED 02/09/20 13 10:23AM BY JANET HUMPHRIES MA, KEVIN ON/EMIGDIO Britton MD [address], [place], [address] , [facility] 9 08:00:33 Arthropa thy 468262182 Completed 201302/05/2018 Poncho Britton MD [address], [place], [address] , [facility] 8 09:02:10 Patient status finding [id number] Completed 201204/12/2014 RECORDED 02/09/20 13 10:23AM BY JANET HUMPHRIES MA, ABDULKADIRATI ON/ADDTRISTAN DUM Poncho Britton MD [address] [facility] [facility] [address], [place], [address] , [facility] 6 09:37:22 Asthma 179612533 Active 2013 Not Available [facility] 3 09:17:03 Cough 99482945 Completed 201204/12/2014 IMPRESSI ON: STORY AND QUALITY OF COUGH RAISES POSSIBLE CONCERN FOR PERTUSSI S. WILL DEFER CONFIRMA TORY TESTING AND TREAT EMPIRICA LLY. IF PERSISTA NT/WORSE WILL NEED FURTHER EVAL. ALSO PROVIDE SYMPTROM ATIC RX TO HELP AT NIGHT.; RECORDED 02/09/20 13 10:23AM BY JANET HUMPHRIES MA, KEVIN BLACK/EMIGDIO Britton MD [address], [place], [address] , [facility] 6 09:37:22 History of depressi on [id number] Completed 201304/12/2014 RECORDED 12/01/19 14 10:42AM BY JANET HUMPHRIES MA, KEVIN BLACK/EMIGDIO Britton MD [address], [place], [address] , [facility] 6 09:37:22 Type 2 diabetes mellitus without complica tion 968276302 Active 2013 Not Available [facility] 3 09:17:04 Diabetes mellitus 02708939 Completed 201304/12/2014 RECORDED 12/01/19 14 10:42AM BY JANET HUMPHRIES MA, ANNOTATI ON/EMIGDIO Britton MD [address], [place], [address] , [facility] 6 09:37:22 Type 2 diabetes mellitus without complica tion 463120202 Completed 201204/12/2014 IMPRESSI ON: WELL CONTROLL ED, A1C AT GOAL. OPTHO EXAM UTD. CONTINUE CURRENT REGIMEN. ; RECORDED 07/02/20 13 11:44AM BY JANET HUMPHRIES MA, KEVIN BLACK/EMIGDIO Britton MD [address] [facility] [address], [place], [address] , [facility] 8 09:02:07 Dysuria 06629819 Completed 201104/12/2014 RECORDED 08/14/20 12 1:42PM BY JANET HUMPHRIES MA, KEVIN ON/TUNGEN CHAPARRO Britton MD [address] [facility] [address], [place], [address] , [facility] 6 09:37:22 Follow-u p encounte r Completed 201304/12/2014 RECORDED 12/01/19 14 10:41AM BY JANET HUMPHRIES MA, KEVIN ON/EMIGDIO Britton MD [address] [facility] [address], [place], [address] , [facility] 6 09:37:22 Influenz a vaccine needed 50304164238 06 Completed 201104/12/2014 RECORDED 08/07/20 12 1:48PM BY JANET HUMPHRIES MA, OFFICE VISIT Poncho Britton MD [address] [facility] [address], [place], [address] , [facility] 6 09:37:22 Gastroes ophageal reflux disease 361654318 Completed 201304/12/2014 RECORDED 12/01/19 14 10:42AM BY JANET HUMPHRIES MA, KEVIN ON/EMIGDIO Britton MD [address] [facility] [address], [place], [address] , [facility] 7 09:04:21 Adult health examinat ion Completed 201204/12/2014 IMPRESSI ON: WILL UPDATE IMMUNIZA TION STATUS AND SCREEN BASED ON RISK FACTORS. REGULAR DENTAL CARE AND SEATBELT USE ADVISED. DISTRACT ED DRIVING DISCUSSE D. PAP/MAMM OPGRAM/O PHTO EXAM AND COLONOSC OPY UTD.; RECORDED 02/09/20 13 10:23AM BY JANET HUMPHRIES MA, KEVIN ON/EMIGDIO Britton MD [address], [place], [address] , [facility] 6 09:37:22 Pure hypercho lesterol emia 376778726 Active 2013 Not Available [facility] 3 09:17:04 Hypercho lesterol emia 20772260 Completed 201304/12/2014 RECORDED 12/01/19 14 10:42AM BY JANET HUMPHRIES MA, KEVIN ON/EMIGDIO Britton MD [address], [place], [address] , [facility] 6 09:37:22 Essentia l hyperten dexter 32099295 Active 2013 Not Available [facility] 3 09:17:05 Essentia l hyperten dexter 85355294 Completed 201204/12/2014 IMPRESSI ON: WELL CONTROLL ED, CONTINUE CURRENT REGIMEN. LOW NA DIET, REGULAR XERCISE AND WT LOSS ADVISED. ; RECORDED 07/02/20 13 11:44AM BY JANET HUMPHRIES MA, KEVIN ON/EMIGDIO Britton MD [address] [facility] [address], [place], [address] , [facility] 6 09:37:22 Knee pain Completed 201104/12/2014 RECORDED 08/14/20 12 1:42PM BY JANET HUMPHRIES MA, ANNOTATI ON/EMIGDIO Britton MD [address], [place], [address] , [facility] 6 09:37:22 Laborato ry procedur e performe d [id number] Completed 201304/12/2014 RECORDED 12/01/19 14 10:42AM BY JANET HUMPHRIES MA, KEVIN ON/EMIGDIO Britton MD [address] [facility] [address], [place], [address] , [facility] 6 09:37:22 Leukocyt osis 072817093 Completed 201304/12/2014 RECORDED 12/01/19 14 10:42AM BY JANET HUMPHRIES MA, ANNOTATI ON/EMIGDIO Britton MD [address], [place], [address] , [facility] 6 09:37:22 Screenin g for malignan t neoplasm of breast Completed 201304/12/2014 RECORDED 12/01/19 14 10:42AM BY JANET HUMPHRIES MA, ANNOTATI ON/EMIGDIO Britton MD [address], [place], [address] , [facility] 6 09:37:22 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 Not Available [facility] 3 09:17:03 [facility] 601188477 Active 2013 Not Available [facility] 3 09:17:03 Kidney stone 22264971 Active 2012 Shaker Not Available [facility] 3 09:17:05 Obesity 181485249 Completed 201301/11/2016 RECORDED 12/02/19 14 9:13AM BY JANET HUMPHRIES MA, OFFICE V[facility]IT [facility] 12:10:43 Obstruct pancho sleep apnea syndrome 84750929 Active 2013 CPAP 5-15 cm H2O, has been off of CPAP Not Available [facility] 3 09:17:05 Osteoart hritis of knee 489169370 Active 2013 S/P left TKR-KRUS HELL Not Available [facility] 3 09:17:03 Osteoart hritis of knee 358064956 Completed 201204/12/2014 IMPRESSI ON: SET FOR LEFT TKR [address] PADILLA .; RECORDED 08/13/20 13 10:44AM BY BONNIE WALKER MA, ANNOTATI ON/EMIGDIO Britton MD [address] [facility] [address], [place], [address] , [facility] 9 09:31:00 Disorder of bone and articula r cartilag e 718085310 Completed 201301/16/2017 IMPRESSI ON: ADEQUATE DIETARY CA/VIT D INTAKE ADVISED WELL REGULAR WEIGHT BEARING EXERCISE .; RECORDED 12/02/19 14 9:13AM BY JANET HUMPHRIES MA, OFFICE VISIT Poncho Britton MD [address] [facility] [address], [place], [address] , [facility] 7 09:04:38 Pre-surg hazel evaluati on Completed 201204/12/2014 IMPRESSI ON: PATIENT IS AT LOW/MODE RATE RISK FOR CARDIOPU LMONARY COMPLICA TIONS WITH PLANNED PROCEDUR E BASED MAINLY ON COMORBID ITIES AND OVERALL PROCEDUR E RISK. GIVEN HER GOOD EXERTION AL TOLERANC E AND UNREMARK ABLE ECG FINDINGS NOT FURTHER EVALUATI ON IS WARRANTE D AT THIS TIME. PT ADVISED TO AVOID ASPIRIN AND NSAIDS FOR 7 DAYS PRIOR. MEDICALL Y STABLE/C LEARED TO PROCEED WITH SURGERY PLANNED. ; RECORDED 08/13/20 13 10:44AM BY BONNIE WALKER MA, ANNOTATI ON/EMIGDIO Britton MD [address] [facility] [address], [place], [address] , [facility] 6 09:37:22 Gastroes ophageal reflux disease 820850377 Active 2013 Not Available [facility] 3 09:17:03 Administ ration of diphther ia and tetanus vaccine Completed 201304/12/2014 RECORDED 12/01/19 14 10:41AM BY JANET HUMPHRIES MA, ANNOTATI ON/EMIGDIO Britton MD [address] [facility] [address], [place], [address] , [facility] 6 09:37:22 Urinary tract infectio us disease 86040776 Completed 201304/12/2014 RECORDED 12/02/19 14 9:43AM BY PONCHO Mancilla MD, ANNOTATI ON/ADDEN DUM Poncho Britton MD [address], [place], [address] , [facility] 9 09:29:27 Type 2 diabetes mellitus 78479263 Completed 01/11/2016 Poncho Britton MD [address], [place], [address] , [facility] 6 09:37:22 Hypothyr oidism 53738836 Active Not Available [facility] 3 09:17:04 Body mass index 30+ - obesity 114237015 Completed 03/13/2020 Janet Humphries MA null, [facility] 0 08:32:02 Osteopen ia 769336613 Completed 02/05/2018 Poncho Britton MD [address], [place], [address] , [facility] 1 22:33:58 Liver enzymes outside referenc e range 176266120 Completed 02/05/2018 Poncho Britton MD [address], [place], [address] , [facility] 8 09:00:56 Ventricu lar prematur e beats 82240800 Active 2014 noted on sleep study Not Available [facility] 3 09:17:03 Dry skin 70579495 Completed 01/11/2016 Poncho Britton MD [address], [place], [address] , [facility] 6 09:37:22 Palpitat ions 36807134 Completed 01/11/2016 Poncho Britton MD [address], [place], [address] , [facility] 6 09:37:22 Dizzines s 766037844 Completed 01/11/2016 Poncho Britton MD [address], [place], [address] , [facility] 6 09:37:22 Bradycar amy 36134036 Completed 01/16/2017 Poncho Britton MD [address], [place], [address] , [facility] 7 09:05:02 Mitral valve regurgit ation 78866665 Active mod Not Available [facility] 3 09:17:05 Diastoli c dysfunct ion 9453856 Active 2014 Not Available [facility] 3 09:17:04 Low back pain 423947896 Completed 01/16/2017 Poncho Britton MD [address] [facility] [address], [place], [address] , [facility] 7 09:04:48 Advance directiv farooq ramsey d with patient 105597209 Completed 03/13/2020 Poncho Britton MD [address], [place], [address] , [facility] 0 08:55:10 Paronych ia of finger 848430071 Completed 201607/27/2018 thumb Poncho Britton MD [address], [place], [address] , [facility] 8 10:28:57 Cholecys titis 09015509 Completed 201602/05/2018 Removal Reason: s/p removal Poncho Britton MD [address], [place], [address] , [facility] 8 08:59:53 Obesity 789368957 Completed 201602/05/2018 Dayana barney, [facility] 9 12:10:43 Insomnia disorder related to known organic factor 27827686 Active 2017 Not Available [facility] 3 09:17:05 Osteoart hritis of joint of left hand 60203444426 9102 Active 2017 Not Available [facility] 3 09:17:04 Osteoart hritis 500243549 Active 2017 Not Available [facility] 3 09:17:04 Divertic ular disease 249666457 Active 2017 Not Available [facility] 3 09:17:04 Senile hyperker atosis 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 Not Available [facility] 3 09:17:04 Calcinos is 3634390 Completed 201703/13/2020 Poncho Britton MD [address] [facility] [address], [place], [address] , [facility] 0 08:58:00 Allergic rhinitis 01514337 Active 2018 Not Available [facility] 3 09:17:05 Urinary tract infectio us disease 07340243 Completed 201803/11/2019 Poncho Britton MD [address] [facility] [address], [place], [address] , [facility] 9 09:29:27 Vulvovag inal disease 66424848 Completed 201803/11/2019 Poncho Britton MD [address] [facility] [address], [place], [address] , [facility] 9 09:29:21 Pain in urethra 9366391 Completed 201803/11/2019 Poncho Britton MD [address] [facility] [address], [place], [address] , [facility] 9 09:29:15 Atrophic vaginiti s 35584028 Active 2018 Not Available [facility] 3 09:17:05 Obesity 477282172 Active 2018 Not Available [facility] 3 09:17:04 Glaucoma suspect Completed 201805/21/2022 Poncho Britton MD [address], [place], [address] , [facility] 2 15:10:57 Esotropi a 32023199 Active 2018 Not Available [facility] 3 09:17:03 Dilatati on of aorta 96628296 Active 2019 3.7cm Not Available [facility] 3 09:17:04 Degenera tive joint disease of hand 96248072 Active 2019 Not Available [facility] 3 09:17:03 Nephroca lcinosis 47247552 Active 2019 Not Available [facility] 3 09:17:05 Internal hemorrho ids 62809229 Active 2019 Not Available [facility] 3 09:17:05 Ischemic colitis 07137509 Active 2019 Not Available [facility] 3 09:17:04 Suspecte d COVID-19 652338593 Completed 03/05/2021 Removal Reason: Problem added by user [email or web address] from the COVID-19 watch flag Rere barney, [facility] 1 10:52:02 Hypokale aurora 45705144 Completed 202001/06/2023 Poncho Britton MD [address], [place], [address] , [facility] 3 13:26:41 Total bilirubi n above referenc e range 40821461505 9108 Completed 202001/06/2023 Poncho Britton MD [address], [place], [address] , [facility] 3 13:27:24 Osteopen ia 407012345 Active 2020 Not Available [facility] 3 09:17:04 Osteoart hritis of right knee joint 91253258579 9100 Active 2020 end stage Not Available [facility] 3 09:17:04 Major depressi on single episode, in partial remissio n 08449673 Active 2021 Not Available [facility] 3 09:17:05 Open wound of toe of right foot 12666716227 817992 Completed 202105/21/2022 Poncho Britton MD [address], [facility] [place], [address] , [facility] 2 15:11:24 Hyperten dexter monitori ng status 974673027 Active 2021 Accuheal th- enrolled Not Available [facility] 3 09:17:04 Coronary atherosc lerosis 469320297 Active 2021 Not Available [facility] 3 09:17:04 Calcific ation of coronary artery 542643635 Active 2021 mild LAD Not Available [facility] 3 09:17:04 Anxiety 08546194 Active 2021 Not Available [facility] 3 09:17:05 Arterios clerotic vascular disease 25489912 Active 2021 Not Available [facility] 3 09:17:05 Small vessel cerebrov ascular disease 100652827 Active 2021 Not Available [facility] 3 09:17:04 Multiple lacunar infarcts 881887754 Active 2021 Not Available [facility] 3 09:17:04 Periodic limb movement disorder 398124812 Active 2021 Not Available [facility] 3 09:17:04 Sensorin eural hearing loss of bilatera l ears 237595019 Active 2022 Not Available [facility] 3 09:17:03 Family history of malignan t melanoma 764238801 Active 2022 Not Available [facility] 3 09:17:04 Retrolis thesis 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 Not Available [facility] 3 09:17:04 Sensorin eural hearing loss 07738060 Active 2023 bilatera l, right >left Poncho Britton MD [address] [facility] [address], [place], [address] , [facility] 4 06:48:59 Constipa tion 14026196 Active 2023 Poncho Britton MD [address] [facility] [address], [place], [address] , [facility] 4 21:29:26 Cerebrov ascular disease 45990963 Active 2023 Poncho Britton MD [address], [place], [address] , [facility] 4 06:58:34 Aneurysm of thoracic aorta 221357236 Active 2023 Poncho Britton MD [address] [facility] [address], [place], [address] , [facility] 4 10:32:12 Incomple te right bundle branch block 350036081 Active 2024 Poncho Britton MD [address], [place], [address] , [facility] 5 13:16:28 Left anterior fascicul ar block 88895426 Active 2024 Poncho Britton MD [address] [facility] [address], [place], [address] , [facility] 5 13:16:43 Acute sinusiti s 60330663 Completed 202401/08/2025 MAY MONROE MD [address] [address], [place], [address] , [facility] 08:38:39 Problem Notes None recorded. Procedures Surgical History Date Name Laterality Status Provider Name and Address Organization Details Recorded Time 025 injection of cortisone completed Evelia ramires [place] [facility] 11/06/2024 11:20:15 024 Diabetic Foot Exam (Monofilament) completed Poncho Britton MD [address], [address], [facility] 06/07/2024 10:24:21 023 echocardiography completed Poncho Britton MD [address], [address], [facility] 11/03/2023 15:05:36 023 Diabetic Foot Exam (Monofilament) completed Poncho Britton MD [address], [address], [facility] 06/03/2023 14:50:55 022 prosthetic total arthroplasty of right shoulder completed Poncho Britton MD [address], [address], [facility] 01/06/2023 13:14:19 022 Diabetic Foot Exam (Monofilament) completed Janet Humphries [place] [facility] 05/21/2022 14:17:34 022 incision of ingrown nail completed Poncho Britton MD [address], [address], [facility] 11/11/2021 11:22:13 022 radionuclide imaging of perfusion of myocardium under exercise stress completed Poncho Britton MD [address], [address], [facility] 11/28/2021 07:55:28 021 Most Recent Bone Density completed Olinda Miranda [facility] 06/07/2024 09:53:03 021 Advanced Care Planning completed Poncho Britton MD [address] [facility] [address] [facility], [place], [address], [facility] 03/15/2021 10:32:38 021 Diabetic Foot Exam (Monofilament) completed Poncho Britton MD [address] [facility] [address] [facility], [place], [address], [facility] 03/30/2021 10:17:29 020 colonoscopy completed Poncho Britton MD [address] [address], [place], [address], [facility] 07/31/2020 13:00:40 020 Mini-Cog Test completed Janet Humphries [place] [facility] 03/13/2020 08:35:20 020 Diabetic Foot Exam (Monofilament) completed Janet Humphries MA [facility] 03/13/2020 08:35:05 020 Echo transthoracic completed Poncho Britton MD [address] [address], [place], [address], [facility] 11/02/2019 21:26:40 019 Dxa bone density pamela vrt fx completed Janet Humphries [place] [facility] 03/13/2020 08:30:35 019 Most Recent Mammogram completed Taylor Lamar [facility] 03/23/2019 16:20:12 019 Mammogram Screening completed Taylor Lamar [facility] 03/23/2019 16:20:07 019 Mini-Cog Test completed Evelia ramires MA [facility] 03/11/2019 09:09:02 018 Mini-Cog Test completed Judith Schofield MA [facility] 02/05/2018 08:36:39 018 Diabetic Foot Exam (Monofilament) completed Poncho Britton MD [address] [facility] [address] [facility], [place], [address], [facility] 02/08/2018 18:41:18 017 Cholecystectomy completed Samia Cunha [facility] 08/15/2017 15:33:43 017 Fall Risk Assessment completed Janet Humphries [facility] 01/16/2017 08:37:00 017 Mini-Cog Test completed Janet Humphries [facility] 01/16/2017 08:37:56 016 Fall Risk Assessment completed Janet Humphries MA [facility] 01/11/2016 09:12:15 016 Mini-Cog Test completed Janet Humphries MA [facility] 01/11/2016 09:29:00 016 Advanced Care Planning completed Janet Humphries [facility] 01/11/2016 09:12:15 015 Date of Last Colonoscopy completed Janet Humphries MA [facility] 01/11/2016 09:12:14 015 Colonoscopy completed Janet Humphries MA [facility] 02/02/2015 10:44:15 015 Fall Risk Assessment completed Janet Humphries MA [facility] 10/13/2014 09:44:22 015 Mini-Cog Test completed Janet Humphries MA [facility] 10/13/2014 09:44:41 014 Cystoscopy and treatment completed Poncho Britton MD [address], [place], [address], [facility] 08/17/2019 22:34:32 014 completed Janet Humphries [place] [facility] 06/08/2014 09:05:45 013 Knee Surgery completed Poncho Britton MD [address], [place], [address], [facility] 10/13/2014 09:55:41 013 Joint Replacement completed Janet Humphries MA [facility] 05/21/2022 14:14:56 010 Date of Last Pap Smear completed Janet Humphries [facility] 01/16/2017 08:35:58 009 completed Janet Humphries [facility] 06/08/2014 09:05:45 988 Hysterectomy completed Poncho Britton MD [address], [place], [address], [facility] 01/16/2017 09:10:48 973 Hemorrhoidectomy completed Janet Humphries MA [facility] 05/21/2022 14:14:56 957 Appendectomy completed Janet Humphries MA [facility] 05/21/2022 14:14:56 Carpal tunnel surgery completed Poncho Britton MD [address], [place], [address], [facility] 01/16/2017 09:10:37 Hemorrhoidectomy completed Janet aviles MA [facility] 05/21/2022 14:14:56 Appendectomy completed Janet Humphries [place] [facility] 05/21/2022 14:14:56 Imaging Results Imaging Date Name Status LastModified by Organiz ation Details LastModified Time 12/15/2024 ECG 12-lead completed [address], [address], 12/20/2024 12:03:54 Procedure Notes None recorded. Medical Equipment None Reported. Allergies Allergen ID Allergen Name Allergen Category Reaction Reaction Severity Criticality Documentation Date Start Date Code Code System Note Provider Name and Address Organization Details Recorded Time 76597 lamotrigi ne medicatio n dizziness moderate Not available 12/20/20242024 77497 RxNorm CURLY Powers [facility] 11:38:57 Medications Name Sig Start Date Stop Date Status Note LastModified by Organization Details LastModified Time atorvasta tin calcium 40 mg tabs active Not Available Not Available Not Available cyclobenz aprine hcl 10 mg tabs active Not Available Not Available Not Available oxycodone /acetamin ophen 5-325 mg tabs active Not Available Not Available Not Available buspirone hcl 10 mg tabs active Not Available Not Available Not Available losartan potassium 50 mg tabs active Not Available Not Available Not Available indapamid e 1.25 mg tabs active Not Available Not Available Not Available buspirone hcl 5 mg tabs active Not Available Not Available Not Available fluarix quadrival ent 2530-1740 .5 ml elise active Not Available Not Available Not Available trazodone hcl 50 mg tabs active Not Available Not Available Not Available proair hfa 108 (90 base) mcg/act aers active Not Available Not Available Not Available levothyro xine sodium 25 mcg tabs active Not Available Not Available Not Available losartan 50 mg tablet TAKE 1 TABLET BY MOUTH EVERY DAY 07/24 completed Not Available Not Available Not Available celecoxib 200 mg capsule TAKE 1 CAPSULE BY MOUTH EVERY DAY 09/18 completed Not Available Not Available Not Available cyclobenz aprine 10 mg tablet Take 1 tablet twice a day by oral route for 5 days. 2014 active Not Available Not Available Not Avai lable amoxicill in 500 mg capsule DIRECTED TAKE BY MOUTH 4 TABS 1 HOUR BEFORE DENTIST APPOINTM ENT active Not Available Not Available No t Available azithromy wale 250 mg capsule DAILY X 1 DAY, THEN QD X 4 DAYS 08/19 completed RECORDED 08/22/20 12 8:49AM BY PONCHO Mancilla MD, MEDICATI ON AUTO-PEDRO LUIS CTIVATIO N; Not Available Not Available Not Available atorvasta tin 40 mg tablet TAKE 1 TABLET BY MOUTH DAILY 12/15 completed Not Available Not Available Not Available buspirone 5 mg tablet active Not Available Not Available Not Available atorvasta tin 80 mg tablet Take 1 tablet every day by oral route for 90 days. active Not Available Not Available No t Available azelastin e 0.05 % eye drops 01/16 completed Not Available Not Available Not Available prednison e 10 mg tablet 03/11 completed Not Available Not Available Not Available doxycycli ne hyclate 100 mg capsule 11/15 completed Not Available Not Available Not Available nabumeton e 750 mg tablet TAKE 1 TABLET BY MOUTH TWICE A DAY 12/20 completed Not Available Not Available Not Available tizanidin e 2 mg tablet TAKE 1 TABLET EVERY 6 HOURS BY ORAL ROUTE NEEDED FOR 3 DAYS. 07/17 completed Not Available Not Available Not Available clindamyc in HCl 300 mg capsule 03/15 completed Not Available Not Available Not Available Lac-Hydri n Five 5 % lotion Apply 1 applicat ion twice a day by topical route. 2014 active Not Available Not Available Not Avai lable trazodone 50 mg tablet TAKE 1 TABLET BY MOUTH EVERY NIGHT AT BEDTIME active as needed Not Available Not Available Not Available azithromy wale 250 mg tablet 07/24 completed Not Available Not Available Not Available fluconazo le 150 mg tablet Take 1 tablet every day by oral route as needed for 1 day. 03/11 completed Not Available Not Available Not Available hydrocort isone valerate 0.2 % topical cream Apply 1 applicat ion every day by topical route for 7 days. 05/21 completed Not Available Not Available Not Available valacyclo vir 1 gram tablet TAKE 2 TABLETS BY MOUTH EVERY 12 HOURS X1 DAY 12/20 completed Not Available Not Available Not Available tretinoin 0.025 % topical cream 01/16 completed Not Available Not Available Not Available meloxicam 15 mg tablet Take 1 tablet every day by oral route. 01/08 completed Not Available Not Available Not Available FreeStyle Lancets 28 gauge Take 1 each every day by miscell. route. 08/20 completed Not Available Not Available Not Available phenazopy ridine 200 mg tablet 10/03 completed Not Available Not Available Not Available prednison e 20 mg tablet TAKE 2 TABLETS BY MOUTH EVERY DAY FOR 5 DAYS active Not Available Not Available No t Available Tylenol Arthritis Pain 650 mg tablet,ex tended release Take 1 tablet twice a day by oral route. 06/07 completed Not Available Not Available Not Available Dilaudid- 5 1 mg/mL oral liquid DAILY 12/01 completed RECORDED 12/02/19 14 9:14AM BY JANET HUMPHRIES MA, OFFICE VISIT; Not Available Not Available Not Available potassium chloride ER 10 mEq tablet,ex tended release TAKE 1 TABLET BY MOUTH EVERY DAY active Not Available Not Available No t Available acetamino phen 300 mg-codein e 30 mg tablet 09/11 completed Not Available Not Available Not Available sulfameth oxazole 800 mg-trimet hoprim 160 mg tablet 10/03 completed Not Available Not Available Not Available aspirin 81 mg tablet,de layed release Take 81 mg by oral route. 03/13 completed Not Available Not Available Not Available tramadol 50 mg tablet TAKE 1 TO 2 TABLETS BY MOUTH EVERY 6 HOURS NEEDED FOR MILD PAIN. DO NOT EXCEED 8 TABLETS (400MG) PER DAY. 08/20 completed Not Available Not Available Not Available acetamino phen 500 mg tablet NEEDED 09/11 completed Not Available Not Available Not Available amoxicill in 500 mg tablet Take 4 tablets as needed by oral route. 05/21 completed TAKE 4 TABLETS BY MOUTH 1 HOUR PRIOR TO THE DENTAL PROCEDUR E Not Available Not Available Not Available levothyro xine 25 mcg tablet TAKE 1 TABLET BY MOUTH EVERY DAY active pt unsure if taking Not Available Not Available Not Available amoxicill in 250 mg chewable tablet 09/11 completed Not Available Not Available Not Available oxycodone -acetamin ophen 5 mg-325 mg tablet Take 1 tablet every day by oral route as needed for 5 days. 2014 active Not Available Not Available Not Avai lable Fluticaso ne Propionat e (Inhal) 50 mcg/BLIST inhl powd EACH NOSTRIL DAILY NEEDED 08/13 completed RECORDED 08/13/20 13 10:53AM BY JANET HUMPHRIES MA, OFFICE VISIT; Not Available Not Available Not Available hydromorp subhash 2 mg tablet TAKE 1 TO 2 TABLETS BY MOUTH EVERY 4 HOURS NEEDED FOR SEVERE PAIN 08/20 completed Not Available Not Available Not Available citalopra m 20 mg tablet TAKE 1 & 1/2 TABLETS EVERY MORNING 05/03 completed Not Available Not Available Not Available famotidin e 20 mg tablet Take 1 tablet every day by oral route at bedtime. active Not Available Not Available No t Available aspirin 325 mg tablet,de layed release TAKE ONE TABLET TWICE A DAY FOR 30 DAYS ONLY. MEDICATI ON TO BE STARTED AFTER SURGERY. 08/20 completed Not Available Not Available Not Available doxycycli ne monohydra te 100 mg capsule 03/15 completed Not Available Not Available Not Available cephalexi n 500 mg capsule Take 1 capsule every 8 hours by oral route for 7 days. 11/06 completed Not Available Not Available Not Available Cipro 500 mg tablet Take 1 tablet every 12 hours by oral route for 7 days. 10/05 completed Not Available Not Available Not Available buspirone 10 mg tablet Take 2 tablets every day by oral route as directed for 30 days. 09/11 completed Not Available Not Available Not Available lidocaine 5 % topical patch Apply by topical route for 15 days. 11/08 completed Not Available Not Available Not Available losartan 25 mg tablet Take 1 tablet every day by oral route for 30 days. active Not Available Not Available No t Available indapamid e 1.25 mg tablet Take 1 tablet every day by oral route for 90 days. active Not Available Not Available No t Available gabapenti n 300 mg capsule TAKE 1 CAPSULE 3 TIMES A DAY BY MOUTH NEEDED FOR 7 DAYS, FOR PAIN FROM ZOSTER. 06/07 completed Not Available Not Available Not Available sertralin e 25 mg tablet Take 1 tablet every day by oral route for 30 days. 02/07 completed Not Available Not Available Not Available buspirone 7.5 mg tablet Take 1 tablet every day by oral route as needed for 30 days. 09/27 completed Not Available Not Available Not Available omeprazol e 20 mg capsule,d elayed release TAKE 1 CAPSULE BY MOUTH EVERY DAY 06/07 completed Not Available Not Available Not Available vitamin B complex tablet Take 1 tablet every day by oral route. 2022 active Not Available Not Available Not Avai lable amoxicill in 250 mg capsule 10/03 completed Not Available Not Available Not Available hydroxyzi ne HCl 25 mg tablet Take 1 tablet 4 times a day by oral route as directed . 02/07 completed Not Available Not Available Not Available codeine 10 mg-guaife nesin 100 mg/5 mL oral liquid Take 10 mL every 6 hours by oral route as needed. 03/11 completed Not Available Not Available Not Available aspirin 81 mg tablet Take 1 tablet every day by oral route. 05/03 completed Not Available Not Available Not Available gabapenti n 100 mg capsule TAKE 1 CAPSULE BY MOUTH THREE TIMES A DAY active Not Available Not Available No t Available azelastin e 137 mcg (0.1 %) nasal spray Surprise 2 sprays as needed by nasal route for 90 days. 06/03 completed Not Available Not Available Not Available estradiol 0.01% (0.1 mg/gram) vaginal cream Insert 1 applicat orful twice a week by vaginal route for 90 days. 11/03 completed PRN Not Available Not Available Not Available methylpre dnisolone 4 mg tablets in a dose pack TAKE 6 TABLETS ON DAY 1 DIRECTED ON PACKAGE AND DECREASE BY 1 TAB EACH DAY FOR A TOTAL OF 6 DAYS 11/03 completed Not Available Not Available Not Available albuterol sulfate HFA 90 mcg/actua tion aerosol inhaler INHALE 2 PUFFS EVERY DAY BY INHALATI ON ROUTE NEEDED. active Not Available Not Available No t Available fluoxetin e 20 mg capsule TAKE 1 CAPSULE BY MOUTH EVERY DAY 2024 active Not Available Not Available Not Avai lable fluticaso ne propionat e 50 mcg/actua tion nasal spray,josh pension Surprise 2 sprays every day by intranas al route as needed. 05/21 completed Not Available Not Available Not Available sertralin e 50 mg tablet Take 1.5 tablets every day by oral route for 90 days. 08/20 completed Not Available Not Available Not Available doxycycli ne hyclate 100 mg tablet TAKE 1 TABLET BY MOUTH TWICE A DAY FOR 7 DAYS 11/06 completed Not Available Not Available Not Available lamotrigi ne 100 mg tablet Take 0.5 tablets every day by oral route in the morning. active Not Available Not Available No t Available amoxicill in 875 mg-potass ium clavulana te 125 mg tablet Take 1 tablet every 12 hours by oral route for 7 days. 12/29 completed Not Available Not Available Not Available buspirone 15 mg tablet Take 1 tablet by oral route for 90 days. 05/20 completed Not Available Not Available Not Available oxycodone 5 mg tablet 09/11 completed Not Available Not Available Not Available albuterol (refill) 90 mcg/actua tion aerosol inhaler EVERY FOUR HOURS, NEEDED 02/08 completed RECORDED 02/09/20 13 11:09AM BY JANET HUMPHRIES MA, OFFICE VISIT; Not Available Not Available Not Available cyclobenz aprine 5 mg tablet Take 1 tablet twice a day by oral route as needed for 5 days. 01/16 completed Not Available Not Available Not Available metformin ER 750 mg tablet,ex tended release 24 hr DAILY 02/07 completed Not Available Not Available Not Available bupropion HCl XL 300 mg 24 hr tablet, extended release TAKE 1 TABLET BY MOUTH EVERY MORNING active Not Available Not Available No t Available bupropion HCl XL 150 mg 24 hr tablet, extended release Take 1 tablet every day by oral route in the morning for 90 days. 11/03 completed Not Available Not Available Not Available nitrofura ntoin monohydra te/macroc rystals 100 mg capsule TAKE 1 CAPSULE BY MOUTH TWICE A DAY FOR 5 DAYS 12/06 completed Not Available Not Available Not Available duloxetin e 20 mg capsule,d elayed release Take 1 capsule every day by oral route for 30 days. 11/15 completed Not Available Not Available Not Available chlorhexi dine gluconate 0.12 % mouthwash Place 1 applicat ion twice a day by mucous mem route for 16 days. 03/11 completed Not Available Not Available Not Available Synthroid 25 ugs. 03/13 completed Not Available Not Available Not Available Centrum Silver DAILY 02/08 completed RECORDED 02/09/20 13 11:09AM BY JANET HUMPHRIES MA, OFFICE VISIT; Not Available Not Available Not Available Vitamin D3 TAKE 1,000 UNITS ONCE DAILY 06/03 completed Not Available Not Available Not Available Glucosami ne Complex ONCE A DAY active RECORDED 06/22/20 12 11:39AM BY JANET HUMPHRIES MA, ANNOTATI ON/ADDEN DUM; Not Available Not Available Not Available aripipraz ole 2 mg tablet TAKE 1 TABLET BY MOUTH EVERY MORNING 03/15 completed Not Available Not Available Not Available hydrochlo rothiazid e 12.5 mg tablet 06/07 completed Not Available Not Available Not Available peg 3350-elec trolytes 236 gram-22.7 4 gram-6.74 gram-5.86 gram solution active Not Available Not Available Not Available FreeStyle Lite Meter kit Take 1 kit every day by miscell. route. 02/07 completed Not Available Not Available Not Available FreeStyle Lite Strips Take 1 strip every day by miscell. route. 02/07 completed Not Available Not Available Not Available omeprazol e 20 mg tablet,de layed release Take 1 tablet every day by oral route for 30 days. 12/28 completed Not Available Not Available Not Available Calmosept ine 0.44 %-20.6 % topical ointment Apply 1 applicat ion twice a day by topical route as directed for 14 days. 12/06 completed for wound on left [place] Not Available Not Available Not Available potassium citrate ER 15 mEq (1,620 mg) tablet,ex tended release Take 1 tablet every day by oral route for 30 days. 01/23 completed Not Available Not Available Not Available B12 1 daily 11/03 completed Not Available Not Available Not Available Osteo Bi-Flex TAKE 1 TABLET DAILY 06/03 completed UNKNOWN STRENGTH Not Available Not Available Not Available hydrocodo ne-homatr opine 5 mg-1.5 mg/5 mL (5 mL) oral solution TWO TIMES DAILY, NEEDED 08/28 completed RECORDED 09/02/20 12 11:20AM BY PONCHO Mancilla MD, MEDICATI ON AUTO-PEDRO LUIS CTIVATIO N; Not Available Not Available Not Available Centrum Silver Women 1 tab daily orally active Not Available Not Available No t Available Fluzone High-Dose 2446-4308 (PF) 180 mcg/0.5 mL intramusc ular syringe 07/24 completed Not Available Not Available Not Available Shingrix (PF) 50 mcg/0.5 mL intramusc ular suspensio n, kit 06/03 completed Not Available Not Available Not Available Fluad Quad (65yr up)(PF) 60 mcg (15 mcg x 4)/0.5mL IM syringe [facility] 06/13 completed Not Available Not Available Not Available Vitals Date Recorded Body height Body mass index (BMI) Body weight Heart rate Oxygen saturation Oxygen saturation in Arterial blood by Pulse oximetry Body temperature Systolic blood pressure Diastolic blood pressure Provider Name and Address Organization Details Last Updated DateTime 5 152.4 cm 30.3 kg/m2 49097.8 2 g 98 /min 98 % 98 % 97.9 [degF] 146 mm[Hg] 79 mm[Hg] Olinda Virgilio [facility] 5 10:36:25 Date Recorded Body height Body mass index (BMI) Body weight Oxygen saturation Oxygen saturation in Arterial blood by Pulse oximetry Heart rate Body temperature Systolic blood pressure Diastolic blood pressure Provider Name and Address Organization Details Last Updated DateTime 5 152.4 cm 31 kg/m2 49721.3 9 g 97 % 97 % 91 /min 98 [degF] 119 mm[Hg] 71 mm[Hg] Judith Schofield MA [facility] 5 13:17:41 Date Recorded Body height Body mass index (BMI) Body weight Heart rate Oxygen saturation Oxygen saturation in Arterial blood by Pulse oximetry Body temperature Systolic blood pressure Diastolic blood pressure Provider Name and Address Organization Details Last Updated DateTime 5 152.4 cm 29.9 kg/m2 78839.6 3 g 98 /min 96 % 96 % 98 [degF] 116 mm[Hg] 76 mm[Hg] Olinda [facility] [place] 5 12:47:04 Date Recorded Body height Body mass index (BMI) Body weight Oxygen saturation Oxygen saturation in Arterial blood by Pulse oximetry Heart rate Body temperature Heart rate Oxygen saturation Oxygen saturation in Arterial blood by Pulse oximetry Systolic blood pressure Diastolic blood pressure Systolic blood pressure Diastolic blood pressure Provider Name and Address Organization Details Last Updated DateTime 5 152.4 cm 29.3 kg/m2 31965.8 6 g 97 % 97 % 101 /min 97.8 [degF] 111 /min 98 % 98 % 93 mm[Hg] 64 mm[Hg] 81 mm[Hg] 50 mm[Hg] Judith Schofield MA [facility] 5 10:18:38 Social History Question Answer Notes LastModified by Organizat ion Details LastModified Time Tobacco Smoking Status Never Smoker Not Available [facility] 08/01/2020 03:36:42 Do You Have An Advance Directive? Yes HCP/ Son-Adrian, Dtr-Kamini en Information not available 06/07/2024 What Is Your Level Of Alcohol Consumption? Occasional [id number] Information not available 08/01/2020 Is Blood Transfusion Acceptable In An Emergency? Yes [id number] Information not available 08/01/2020 What Is Your Level Of Caffeine Consumption? Moderate 1-2 Cup Of Coffee Daily Information not available 06/03/2023 How Much Tobacco Do You Chew? None [id number] Information not available 08/01/2020 Are You Currently Employed? No Retired [id number] Information not available 08/01/2020 What Type Of Diet Are You Following? REGULAR Information not available 03/15/2021 Which Illicit Or Recreational Drugs Have You Used? None [id number] Information not available 08/01/2020 Do You Or Have You Ever Used E-cigarettes Or Vape? 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 Single Level Home Information not available 08/20/2022 Live Alone Or With Others? Alone In ( [place] ) [email or web address] Information not available 06/07/2024 Do You Take Precautions To Prevent Distracted Driving? Yes Information not available 04/28/2015 How Often Do You Need To Have Someone Help You When You Read Instructions, Pamphlets, Or Other Written Material From Your Doctor Or Pharmacy? Never Information not available 04/28/2015 Have You Served In The ? No Spouse [email or web address] Information not available 03/11/2019 Have You Or Anyone In Your Household Had Any Of The Following Symptoms In The Last 14 Days: Sore Throat, Cough, Chills, Body Aches For Unknown Reasons, Shortness Of Breath For Unknown Reasons, Loss Of Smell, Loss Of Taste, Fever At Or Greater Than 100 Degrees Fahrenheit? Yes [email or web address] Information not available 06/30/2020 Are You Or Anyone In Your Household A Health Care Provider Or Emergency Responder? No Information not available 06/13/2020 To The Best Of Your Knowledge Have You Been In Close Proximity To Any Individual Who Tested Positive For COVID-19? No Information not available 06/13/2020 *AWV ONLY* Are You Presently Prescribed Opioid Medication By PCP Or Specialist? If YES -Provider Assess The Benefit For Other, Non-opioid Pain Therapies Instead, Even If The Patient Does Not Have OUD But Is Possibly At Risk. No Information not available 06/13/2020 Have You Recently Traveled To A COVID-19 High Risk Area Or Gathering In The Last 10 Days? No Information not available 03/15/2021 Marital Status Informatio n not available 08/20/2022 What Was The Date Of Your Most Recent Tobacco Screening? 12/06/2024 Information not available 12/06/2024 How Many Children Do You Have? 6 [id number] Information not available 08/01/2020 Difficulty Reading? No Information not available 08/20/2022 Do You Use Your Seat Belt Or Car Seat Routinely? Yes Information not available 05/21/2022 Seat Belts Used Routinely Yes Information not available 08/20/2022 Are You Sexually Active? No [id number] Information not available 08/01/2020 Smoke Alarm In Home Yes Information not available 08/20/2022 Do You Have Smoke And Carbon Monoxide Detectors In Your Home? Yes Information not available 05/21/2022 At What Age Did You Start Smoking Tobacco? 1 [id number] Information not available 08/01/2020 Are You Passively Exposed To Smoke? No Information not available 10/13/2014 Do You Or Have You Ever Used Smokeless Tobacco? Never Used Smokeless Tobacco [id number] Information not available 08/01/2020 How Much Tobacco Do You Smoke? No [id number] Information not available 08/01/2020 Do You Use Any Illicit Or Recreational Drugs? No Information not available 08/20/2022 Do You Use Sunscreen Routinely? No Information not available 05/21/2022 How Many Years Have You Smoked Tobacco? 0 [id number] Information not available 08/01/2020 Difficulty Watching TV? No Information not available 08/20/2022 Do You Or Have You Ever Used Any Other Forms Of Tobacco Or Nicotine? No Information not available 08/20/2022 Sex: Unknown Functional Status Question Answer Note LastModified by Organizat ion Details LastModified Time Do you have difficulty walking or climbing stairs? No Information not available 08/20/2022 [address]y [address] at night? No Information not available 08/20/2022 Are you able to walk? YESWOREST Information not available 08/20/2022 Do you have difficulty doing errands alone? No Information not available 08/20/2022 Are you able to care for yourself? Yes with dementia [id number] Information not available 08/01/2020 Do you have difficulty dressing or bathing? No Information not available 08/20/2022 What is your exercise level? Moderate walking Information not available 06/03/2023 Mental Status None recorded. Family History Relationship Description Onset Age of this Age Resolved Age Notes LastModified by Organization Details LastModified Time Father Heart disease [email or web address] Not available 01/10 09:42:52 Maternal Uncle Seizure disorder [email or web address] Not available 01/10 09:42:52 Mother Hypercholest erolemia awychowski Not available 01/10 09:42:52 Mother Old-age 103 Not available 14:35:31 Mother Cerebrovascu lar accident [email or web address] Not available 09:36:20 Maternal Grandmother Cerebrovascu lar accident [email or web address] Not available 13:54:27 Paternal Aunt Malignant tumor of breast [email or web address] Not available 01/10 09:42:52 Brother Hypercholest erolemia awychowski Not available 01/10 09:42:52 Brother Alcohol abuse [email or web address] Not available 05/21 13:54:27 Sister Hypercholest erolemia awychowski Not available 01/10 09:42:52 Sister Alcohol abuse [email or web address] Not available 01/16 09:07:30 Son Coronary arterioscler osis Not available 2021 14:35:31 Medical History Condition Response Coronary Artery Disease N Other Y Gout N Kidney Stones Y Blood Diseases N Hyperthyroidism N Breast Cancer N mrsa exposure N Depression N COPD N Lung Disease N Hypothyroidism N Developmental or Behavioral Disorders N Defects or Inherited Disease N Breast Problem N Anesthesia Complications N Headaches/Migraines N Varicose Veins N Anxiety Disorder N Muscle, Joint, or Bone Problems N Obesity N Vision or Eye Problems N Arthritis Y Head Injury/Concussion N Polyps N Infertility N Mental Disorder N Congenital Anomalies N Acid Reflux (GERD) Y Cancer N Stroke N ADHD N Endometriosis N High Cholesterol Y Liver Disease N Headaches N Fibromyalgia N Kidney Disease N Heart Problems N Ear or Hearing Problems N Hospitalizations N Thyroid Problems Y GI Problems N Developmental Delay N Acne N Skin Problems N Eating Disorder N Anemia N Constipation N Bladder Problems N Mental Illness N Ovarian Cancer N Diabetes Y Bedwetting N Blood Transfusions N Seizures/Epilepsy N Heart Problems/Murmur N Tuberculosis N AIDS/HIV N Congestive Heart Failure (CHF) N Eczema N Diverticulitis N Abuse/Domestic Violence N Asthma Y Allergies N Reflux/GERD Y Hepatitis N Heart Disease N Pulmonary Embolism N Hypertension Y Osteoporosis Y Chicken Pox N Autism Spectrum Disorder (ASD) N Gynecological History Statement/Question Response Date of Last Pap Smear 07/18/2010 Most Recent Mammogram 03/23/2019 10/06/2013 Date of Last Colonoscopy 12/16/2014 Most Recent Bone Density 04/30/2021 06/22/2009 Obstetrics History GPAL:G 0 P 0 0 0 0 Immunizations Vaccine Type Date Status Note Provider Nam e and Address Organization Details Recorded Time Influenza, high-dose, trivalent, PF 4 completed Edita barney [facility] 09/17/2023 09:57:21 Influenza, high-dose, trivalent, PF 5 completed CURLY Powers [facility] 11/03/2023 14:21:34 Influenza, high-dose, trivalent, PF 6 completed Edita Aguilera null, [facility] 09/17/2023 09:57:21 Influenza, high-dose, trivalent, PF 7 completed Edita Aguilera null, [facility] 09/17/2023 09:57:21 Influenza, split virus, quadrivalent, preservative 8 completed Olinda Miranda MA null, [facility] 11/03/2023 14:21:34 Influenza, high-dose, trivalent, PF 9 completed Edita Aguilera null, [facility] 09/17/2023 09:57:21 zoster recombinant 9 completed Olinda Miranda CURLY savita, [facility] 11/03/2023 14:21:34 Influenza, split virus, quadrivalent, preservative 0 completed CURLY Powers, [facility] 11/03/2023 14:21:34 COVID-19, mRNA, LNP-S, PF, 100 mcg/0.5mL dose or 50 mcg/0.25mL dose 1 completed Edita barney, [facility] 09/17/2023 09:57:21 COVID-19, mRNA, LNP-S, PF, 100 mcg/0.5mL dose or 50 mcg/0.25mL dose 1 completed Edita Aguilera null, [facility] 09/17/2023 09:57:21 zoster recombinant 0 completed Janet Humphries MA null, [facility] 03/15/2021 10:16:16 Influenza, split virus, quadrivalent, preservative 1 completed Olinda Miranda MA null, [facility] 11/03/2023 14:21:34 Influenza, adjuvanted, quadrivalent, PF 0 completed Edita barney, [facility] 09/17/2023 09:57:21 zoster recombinant 9 completed Edita Aguilera null, [facility] 09/17/2023 09:57:21 Influenza, high-dose, trivalent, PF 8 completed Edita Perri GalloAguilera null, [facility] 09/17/2023 09:57:21 Influenza, high-dose, quadrivalent, PF 1 completed Edita Gallonett null, [facility] 09/17/2023 09:57:21 Influenza, split virus, quadrivalent, PF 5 completed Edita Aguilera null, [facility] 09/17/2023 09:57:21 COVID-19, mRNA, LNP-S, PF, 100 mcg/0.5mL dose or 50 mcg/0.25mL dose 2 completed Edita Aguilera null, [facility] 09/17/2023 09:57:21 Pneumococcal conjugate PCV 13 5 completed Edita Aguilera null, [facility] 09/17/2023 09:57:21 COVID-19, mRNA, LNP-S, bivalent, PF, 30 mcg/0.3 mL dose 2 completed Edita Aguilera null, [facility] 09/17/2023 09:57:21 Influenza, high-dose, quadrivalent, PF 2 completed Edita Aguilera null, [facility] 09/17/2023 09:57:21 zoster recombinant 3 completed CURLY Powers, [facility] 11/03/2023 14:21:34 Influenza, high-dose, quadrivalent, PF 3 completed Edita barney, [facility] 09/17/2023 09:57:21 RSV, recombinant, protein subunit RSVpreF, adjuvant reconstituted, 0.5 mL, PF 3 completed CURLY Powers, [facility] 11/03/2023 14:21:34 COVID-19, mRNA, LNP-S, PF, 50 mcg/0.5 mL 3 completed Edita Aguilera null, [facility] 09/17/2023 09:57:21 pneumococcal polysaccharide PPV23 8 completed Edita Aguilera null, [facility] 09/17/2023 09:57:21 zoster live 2 completed Edita Aguilera null, [facility] 09/17/2023 09:57:21 Influenza, split virus, trivalent, preservative 2 completed Edita Aguilera null, [facility] 09/17/2023 09:57:21 Influenza, split virus, trivalent, preservative 3 completed Edita barney, [facility] 09/17/2023 09:57:21 Tdap 3 completed Edita barney, [facility] 09/17/2023 09:57:21 Td (adult), 2 Lf tetanus toxoid, preservative free, adsorbed 3 completed Poncho Britton MD [address], [address], [facility] 06/18/2023 15:09:57 Influenza, high-dose, trivalent, PF 4 completed Poncho Britton MD [address], [address], [facility] 06/07/2024 10:30:07 Past Encounters Encounter ID Performer Location Encounter Start Date Encounter Closed Date Diagnosis/Indication Diagnosis SNOMED-CT Code Diagnosis ICD10 Code Diagnosis Note [id number] Janet Humphries MA Main Office [address] [address] 06/08/2014 09:09:31 06/08/2014 09:58:47 Type 2 diabetes mellitus [id number] Pure hypercholesterolemia 357602494 Essential hypertension 34091979 Hypothyroidism 72757087 Skin finding [id number] Main Office [address] [facility] [address] [place] [id number] 10/13/2014 09:24:27 10/13/2014 10:42:23 Adult health examination [id number] Will update immunizati on status and screen based on risk factors. Regular dental and ophtho care advised as well as seatbelt and sunscreen use. Distracted driving discussed. Breast and cervical cancer screening are current. Due for f/u colonoscop y. Currently demonstrat es low risk for falls and no significan t cognitive decline. Advance directives in place. Body mass index 30+ - obesity 463184637 Osteopenia 538863335 Reg ular weight bearing exercise advised as well as adequate dietaery Ca and vit D intake. Obstructiv e sleep apnea syndrome 17126539 Using orthotic. Having symptoms. Will assess for treatment effectiven ess. Essential hypertension 48774361 Hypothyroidism 52032312 Pure hypercholesterolemia 042188871 Administra tion of pneumococcal vaccine 62113941 Kidney stone 83938006 Screening for malignant neoplasm of colon 604183402 Type 2 amy betes mellitus 83324738 [id number] Poncho Britton MD Main Office [address] [facility] [address] [place] [id number] 10/27/2014 08:13:01 10/27/2014 08:51:58 Gastroesophageal reflux disease 407018389 Episode sounds like possible aspiration pneumoniti s from severe GERD which has been present for years. Pt is due for colonoscop y will ask GI to consider EGD for further assessment of this issue and to rule out Martel's or anatomical condition that might predispose her to this. Pt counseled and advised to adhere to dietary modificati ons and head elevation during sleep while starting PPI therapy. Call inb/worse. [id number] Main Office [address] [facility] [address] [place] [id number] 02/02/2015 10:32:58 02/02/2015 11:25:15 Type 2 diabetes mellitus without complication 222047935 Well controlled . Continue current regimen. Ophtho exam utd. Liver enzy mes outside reference range 375981288 Improved/a lmost normal with better diet and exercise habits. Will follow. Pure hypercholesterolemia 308293149 Obstructiv e sleep apnea syndrome 61967860 Using orthotic with good results, continue. Ventricula r premature beats 49618242 Incidental finding on sleep study. Pt asymptomat ic. Will check labs and follow clinically for now. Dry skin 86165576 [id number] Poncho Britton MD Main Office [address] [address] [place] [address] 03/28/2015 12:39:56 03/28/2015 13:41:59 Dizziness 625972835 this may be secondary to stress/anx iety from taking care of her ill . No changes in meds and she will keep her appointmen t with cardiology . [id number] Poncho Britton MD Main Office [address] [address] [place] [address] 04/28/2015 08:16:17 04/28/2015 09:05:43 Essential hypertension 11245383 Type 2 amy betes mellitus without complication 603517029 Well controlled . Continue current regimen. Ophtho exam utd. Pure hypercholesterolemia 839403231 Reassess following statin dose titration. Palpitations 49137896 Wi ll check holter to see if paroxysmal afib might be a factor. If unremarkab le will defer further evaluation to cardiology . Asthma 895354115 Obstructiv e sleep apnea syndrome 36197052 Wants to explore other treatment options. Pt will schedule f/u with sleep med services. [id number] Janet Humphries MA Main Office [address] [address] [place] [id number] 05/04/2015 10:24:14 05/04/2015 10:57:51 Palpitations 43110714 Will check holter to see if paroxysmal afib might be a factor. If unremarkab le will defer further evaluation to cardiology . [id number] Main Office [address] [address] [place] [address] 05/05/2015 11:17:11 05/05/2015 12:03:35 [id number] Main Office [address] [address] [place] [address] 06/15/2015 15:01:46 06/15/2015 16:16:45 Low back pain 899521150 Suspect piriformis syndrome likely from recent prolonged car travel. Will try PT, continue OTC NSAIDs and muscle relaxant PRN to help with therapy. Pt advised to call inb/worse or if new symptoms develop. Pt advised of medication side effects and not to drive or work while on them. [id number] Poncho Britton MD Main Office [address] [facility] [address] [place] [place] [id number] 09/14/2015 08:17:08 09/14/2015 08:50:13 Type 2 diabetes mellitus 94082234 E11.9 Overdue for labs. Will have done nora. Has been off of metformin. Essential hypertension 03352944 I10 Pure hypercholesterolemia 993983771 E78.0 Reassess following statin dose titration. [id number] Poncho Britton MD Main Office [address] [address] [place] [id number] 11/27/2015 15:10:47 12/05/2015 11:48:44 [id number] Poncho Britton MD Main Office [address] [address] [place] [id number] 01/11/2016 08:53:42 01/11/2016 09:59:39 Adult health examination 691329906 Z00.01 Will update immunizati on status and screen based on risk factors. Regular dental and ophtho care advised as well as seat belt and sunscreen use. Distracted driving discussed. Breast, cervical and colon cancer screening are current. Currently demonstrat es low risk for falls and no significan t cognitive decline. Advance directives in place. Advance di rective discussed with patient 258353345 Z71.89 Body mass index 30+ - obesity 819709260 Z68.33 Osteopenia 178427075 M85 .80 Regular weight bearing exercise advised as well as adequate dietaery Ca and vit D intake. Due for f/u BND. Obstructiv e sleep apnea syndrome 08717958 G47.33 Using CPAP. Having symptoms. Will assess for treatment effectiven ess. Essential hypertension 62348077 I10 Well controlled , continue current regimen. Hypothyroidism 58350615 E03.9 Pure hypercholesterolemia 670057909 E78.0 Type 2 amy betes mellitus 76657470 E11.9 Has been off of meds. Will follow. [id number] Poncho Britton MD Main Office [address] [facility] [address] [place] [id number] 07/24/2016 09:38:02 07/24/2016 10:22:37 Type 2 diabetes mellitus without complication 242329500 E11.9 Will recheck A1C in Sep. If > or equal to 7 will resume metformin. Ophtho exam utd. Essential hypertension 39697785 I10 Pure hypercholesterolemia 613511208 E78.01 Reassess following statin dose titration. Achilles tendinitis 1165 4001 M76.61 Heel inserts advised. Refer to podiatry or PT if persistent /worse. [id number] Poncho Britton MD Main Office [address] [facility] 207 [facility] [place] [id number] 08/01/2016 14:15:03 08/01/2016 14:53:47 Strain of muscle of chest wall 538241196 S29.011A Likely muscular strain. Continue otc NSAID and try muscle relaxant PRN. Adequate hydration advised as well as to call if not slowly improving or worse. Strain of right trapezius muscle 4256330526 1043074 S29.012A [id number] Poncho Britton MD Main Office [address] [facility] 207 [facility] [place] [id number] 01/16/2017 08:25:11 01/16/2017 09:35:14 Adult health examination 839784852 Z00.00 Immunizati on status and screening utd based on risk factors. Regular dental and ophtho care advised as well as seat belt and sunscreen use. Distracted driving discussed. Breast, cervical and colon cancer screening are current. Currently demonstrat es low risk for falls and no significan t cognitive decline. Advance directives in place. Liver enzy mes outside reference range 723898619 R94.5 Improved/a lmost normal with better diet and exercise habits. Will follow. Body mass index 30+ - obesity 544971116 Z68.30 E66.9 Type 2 amy betes mellitus without complication 442732817 E11.9 Will recheck A1C in Sep. If > or equal to 7 will resume metformin. Ophtho exam utd. [id number] Poncho Britton MD Main Office [address] [facility] [address] [place] [id number] 08/08/2017 09:46:07 08/08/2017 10:25:05 [id number] Poncho Britton MD Main Office [address] [facility] [address] [place] [address] 09/11/2017 12:40:13 09/11/2017 13:47:13 Cholecystitis 11564824 K81.9 s/p cholescyst ectomy doing well. Loss of hair 029148270 L 65.9 Will screen for common metabolic etiologies . If normal will ask derm for opinion. Type 2 amy betes mellitus without complication 489117226 E11.9 Due for reassessme nt. Essential hypertension 53286902 I10 Dysplastic nevus of skin 660717106 D22.9 left shoulder suspicious for BCC. Pt to schedule f/u with Dr. Vila on this and hair loss. Body mass index 30+ - obesity 035317955 Z68.39 Target weight 130. May need note for wt watchers. Obesity 026322014 E66.9 [id number] Poncho Britton MD Main Office [address] [address] [place] [address] 10/27/2017 09:03:08 10/27/2017 09:31:17 [id number] Poncho Britton MD Main Office [address] [address] [place] [id number] 02/05/2018 08:23:27 02/05/2018 09:36:55 Adult health examination 530007262 Z00.00 Immunizati on status and screening utd based on risk factors. Regular dental and ophtho care advised as well as seat belt and sunscreen use. Distracted driving discussed. Breast, cervical and colon cancer screening are current. Currently demonstrat es low risk for falls and no significan t cognitive decline. Advance directives in place. Type 2 amy betes mellitus without complication 107150512 E11.9 Has been well controlled . Due for reassessme nt. Body mass index 30+ - obesity 082025596 Z68.39 Target weight 130. May need note for wt watchers. Gastroesop hageal reflux disease 399001033 K21.9 Well controlled without warning signs. Will monitor. Hypothyroidism 98911927 E03.9 Clinically euthyroid. WIll check labs. Essential hypertension 89003516 I10 Joint pain in left hand 6321717902 768160 M25.542 Likely OA. Tylenol and splint advised. Call inb/worse. Multiple joint pain 3567 8005 M25.50 Obesity 932638519 E66.9 Pure hypercholesterolemia 416416300 E78.01 Reassess following statin dose titration. [id number] Poncho Britton MD Main Office [address] [address] [place] [address] 06/15/2018 10:39:54 06/15/2018 12:16:17 Flank pain 609654359 R10.9 ? musculoske letal vs early shingles vs recurrent nephrolith iasis. does not have a gallbladde r. Will need further eval if persistent /worse or if new symptoms develop. Referred otalgia 2972929 8 H92.01 [id number] Poncho Britton MD Main Office [address] [address] [place] [address] 07/27/2018 09:52:57 07/27/2018 10:34:56 Pure hypercholesterolemia 311906933 E78.01 LDL at goal on moderate dose statin. Will continue current regimen. Type 2 amy betes mellitus without complication 343116444 E11.9 Well controlled without meds. Continue diet/lifes tyle changes and monitoring . Essential hypertension 51904836 I10 Hypothyroidism 89934178 E03.9 Clinically euthyroid. WIll check labs. Gastroesop hageal reflux disease 875621091 K21.9 Well controlled on PPI. Will try transition ing to HS@B in a few weeks and call with any problems. [id number] Jairo Campbell MD Main Office [address] [address] [place] [id number] 10/03/2018 09:40:27 10/03/2018 10:31:19 Dysuria 48239146 R30.0 Urinary tr act infectious disease 77379363 N39.0 Cough 41517890 R05 [id number] Poncho Britton MD Main Office [address] [address] [place] [id number] 12/28/2018 11:21:40 12/28/2018 12:16:49 Spontaneous ecchymosis 220687777 R23.3 Seems spontaneou s but no other bleeding symptoms. Will screen for anatomic issue that might be predisposi ng her to vessel injury as well as coagulopat hy. Suspect that the corticoste roid injection might be a factor. WIll monitor clinically if labs and imaging all normal and no other symptoms develop. [id number] Poncho Britton MD Main Office [address] [facility] [address] [facility] [place] [address] 02/02/2019 10:40:23 02/02/2019 11:46:11 Cough 14707176 R05 Suspect viral vs allergic symptoms are causing mild asthma flare. Will rule out pneumonia with CXR, otherwise will focus on inflammati on reduction. Restart nasal steroid nora, and add antihistam ine if symptoms persist. Call inb/worse. Mild inter mittent asthma 221783447 J45.20 [id number] Poncho Britton MD Main Office [address] [facility] [address] [facility] [place] [address] 03/11/2019 08:54:34 03/11/2019 09:53:38 Adult health examination 177008727 Z00.00 Immunizati on status and screening utd based on risk factors. Flu advised in the Fall. Regular dental and ophtho care advised as well as seat belt and sunscreen use. Distracted driving discussed. Breast, cervical and colon cancer screening are current. Currently demonstrat es low risk for falls and no significan t cognitive decline. Advance directives in place. Type 2 amy betes mellitus without complication 195202738 E11.9 Well controlled without meds. Continue diet/lifes tyle changes and monitoring . Body mass index 30+ - obesity 710289899 Z68.31 Target weight 130. May need note for wt watchers. Asthma 707877629 J45.20 Allergic rhinitis 163025 04 J30.2 Osteopenia 141897442 M85 .80 Regular weight bearing exercise advised as well as adequate dietary Ca and vit D intake. Due for f/u BND. Varicella vaccination 68 698383 Z23 Obesity 748821109 E66.9 [id number] Dayana Burrell Main Office [address] [facility] [address] [place] [address] 06/03/2019 10:00:45 06/03/2019 10:59:49 Low back pain 021439940 M54.5 Non focal exam. Likely related to contusion. Call if symptoms worsen or persist for more than 4 weeks. Headache 42654603 R51 Secondary to contusion. Appropriat e heat/cold and APAP/NSAID use advised. Concussion injury of brain 249708575 S06.0X0A Closed injury of head 45 31854868 06 S09.90XA Mechanism of injury, exam findings and overall risk makes intracrani al hemmorhage unlikely. Imaging deferred but if symptoms persist or worsen pt understand s need to go to ED. Fall on sa me level from slipping, tripping or stumbling 598946597 W01.10XA [id number] Poncho Britton MD Main Office [address] [place] [address] 07/13/2019 08:04:45 07/13/2019 09:14:41 Essential hypertension 05135820 I10 Well controlled , continue current regimen . Type 2 amy betes mellitus without complication 724954419 E11.9 Well controlled without meds. Continue diet/lifes tyle changes and monitoring . Osteoarthr itis of right knee joint 4299603904 23745 M17.11 Likely similar issue as on the left. Will ask ortho to evaluate further. Screening for malignant neoplasm of colon 689130998 Z12.11 Gastroesop hageal reflux disease 552830879 K21.9 Will switch to different H2B. Osteopenia 417802812 M85 .80 Regular weight bearing exercise advised as well as adequate dietary Ca and vit D intake advised. [id number] Kait Spangler Main Office [address] [facility] [address] [place] [address] 09/27/2019 14:19:49 09/27/2019 15:31:53 Palpitations 38662125 R00.2 Pt with new onset of intermitte nt palpitatio ns, not observed at visit today. EKG sinus rhythm, no acute or ischemic changes, no change from prior. Offered ED, pt declines as she is feeling fine at this time. Agrees to check labs and her son will arrange a cardiology visit nora. In the interim if she has persistent sx or has any associated chest pain, SOB, dizziness she will go to the ED. Tachycardia 2423774 R00. 0 pulse up slightly from baseline, will discuss with cardiology . NO afib noted not SVT. HR 79 at discharge. [id number] Poncho Britton MD Main Office [address] [facility] [address] [facility] [address] 01/24/2020 08:14:21 01/24/2020 10:00:06 Type 2 diabetes mellitus without complication 765514449 E11.9 Well controlled without meds. Continue diet/lifes tyle changes and monitoring . Need new glucose monitor. Essential hypertension 25533830 I10 Well controlled , continue current regimen . Pure hypercholesterolemia 478496627 E78.01 LDL at goal on moderate dose statin. Will continue current regimen. Hypothyroidism 12590761 E03.9 Clinically euthyroid. WIll recheck labs. Osteopenia 327679514 M85 .80 Regular weight bearing exercise advised as well as adequate dietary Ca and vit D intake advised. Vitamin d level is pending. Osteoarthr itis of joint of left hand 0160219554 32132 M19.042 Improved since injection by Dr. Ramos. Palpitations 62625457 R0 0.2 Had unremarkab le cardiology eval including echo and holter. Will monitor. Advised to call if affording symptoms or correlatin g to exertion. [id number] Poncho Britton MD Main Office [address] [facility] [address] [facility] [place] [address] 03/13/2020 08:14:03 03/13/2020 09:28:27 Adult health examination 650326708 Z00.00 Immunizati on status and screening utd based on risk factors. Flu advised in the Fall. Regular dental and ophtho care advised as well as seat belt and sunscreen use. Distracted driving discussed. Breast, cervical and colon cancer screening are current. Currently demonstrat es low risk for falls and no significan t cognitive decline. Advance directives in place. Varicella vaccination 68 861127 Z23 pt declines second shot after poor reaction to initial Screening for malignant neoplasm of colon 979133193 Z12.11 Needs new GI MD. Type 2 amy betes mellitus without complication 297149264 E11.9 Well controlled without meds. Continue diet/lifes tyle changes and monitoring . Need new glucose monitor. Allergic rhinitis 541160 04 J30.2 Dilatation of aorta 2666 0001 I71.2 Due for f/u in 10/2020 Chronic sinusitis 703763 00 J32.9 Symptoms present for awhile and suspect that allergies have set her up for a secondary bacterial process. Periumbilical pain 85084 3005 R10.33 See if related to hernia. [id number] Jairo Campbell MD [facility] h [address] [facility] [address] [place] [address] 04/29/2020 08:19:33 04/29/2020 09:42:58 Chronic recurrent sinusitis 149939976 J32.9 Recently treated with abx so will not repeat. Recommend restarting a nasal spray (something other than flonase) and call next week if not improving and I will consider another abx at that point. [id number] Poncho Britton MD Main Office [address] [facility] [address] [place] [address] 06/13/2020 15:27:49 06/13/2020 16:01:46 Fall on same level from slipping, tripping or stumbling 277904838 W01.10XA Closed injury of head 45 07132632 06 S09.90XA Sounds like this was strictly a mechanical Fall and based on history unlikely to be related to a neurocardi ac event. Will defer further evaluation at this time. Advised to call if symptoms recur to any degree. Essential hypertension 09380935 I10 Well controlled , continue current regimen. No evidence that hypotensio n was a factor with her fall. [id number] Dayana Burrell [facility] h [address] [facility] [address] [place] [address] 06/30/2020 13:02:26 06/30/2020 14:39:43 Upper respiratory infection 77988809 J06.9 salt water gargles, otc pain medication as needed, steam, , otc cough med prn, call if not improving. If covid positive needs to quanantine for 7-14 days Counseling 140076699 Z71 .9 Health advice, education or counseling done for COVID 19 Exposure t o viral disease 8072958070 63830 Z03.818 covid testing today, quarantine until test results are back [id number] Poncho Britton MD Main Office [address] [facility] [address] [place] [address] 03/15/2021 10:04:29 03/15/2021 10:46:07 Adult health examination 320565889 Z00.00 Immunizati on status and screening utd based on risk factors. Flu advised in the Fall. Regular dental and ophtho care advised as well as seat belt and sunscreen use. Distracted driving discussed. Breast, cervical and colon cancer screening are current. Currently demonstrat es low risk for falls and no significan t cognitive decline. Advance directives in place. Essential hypertension 51882865 I10 Well controlled , continue current regimen. No evidence that hypotensio n was a factor with her fall. Hypothyroidism 38678447 E03.9 Clinically euthyroid. WIll recheck labs. Type 2 amy betes mellitus without complication 935866701 E11.9 Well controlled without meds. Continue diet/lifes tyle changes and monitoring . Need new glucose monitor. Pure hypercholesterolemia 132109273 E78.01 LDL at goal on moderate dose statin. Will continue current regimen. Screening for malignant neoplasm of breast 891442534 Z12.39 Pt declines screening based on low risk history and age. Dilatation of aorta 2666 0001 I71.2 Due for f/u in 10/2020, pt will schedule appt with cards nora Osteoarthr itis of knee 323879936 M17.11 Ischemic colitis 8851690 4 K55.9 Noted on recent colonoscop y. Continue risk factor reduction, and ASA. Advance di rective discussed with patient 821152516 Z71.89 HCP status reviewed and discussed. HCP/MOLST forms provided Osteopenia 016104293 M85 .80 Regular weight bearing exercise advised as well as adequate dietary Ca and vit D intake advised. Vitamin d level is pending. Paronychia of toe 656056 002 L03.032 1st digit call inb/worse. [id number] Poncho Britton MD Main Office [address] [facility] [address] [facility] [place] [address] 06/12/2021 13:31:36 06/12/2021 14:21:17 Hypokalemia 31759607 E87.6 Likely from indapamide which she is on for kidney stone prophylaxi s. Will supplement and reassess. Osteoarthr itis of knee 220270750 M17.11 Strain of neck muscle 36 8429208 S16.1XXA Likely related to soft tissue injury. Will try low dose muscle relaxant, and good hydration advised. Consider PT referral inb/worse. Asthma 128651449 J45.20 [id number] Poncho Britotn MD Main Office [address] [facility] [address] [place] [address] 07/17/2021 09:15:09 07/17/2021 10:09:27 Essential hypertension 56257789 I10 Well controlled , continue current regimen. No evidence that hypotensio n was a factor with her fall. Hypothyroidism 27190739 E03.9 Clinically euthyroid. WIll recheck labs. Type 2 amy betes mellitus without complication 516069265 E11.9 Well controlled without meds. Continue diet/lifes tyle changes and monitoring . Need new glucose monitor. Chronic sinusitis 890260 00 J32.9 Symptoms present for awhile and suspect that allergies have set her up for a secondary bacterial process. Advised to start abx if steroid course doesn't help. Pain of ri ght shoulder joint 5156920769 1809810 M25.511 c/w bursitis. Will ask rheum to evaluate and consider injection. [id number] Poncho Britton MD Main Office [address] [place] [address] 11/15/2021 09:59:50 11/15/2021 10:54:59 Essential hypertension 54213490 I10 Well controlled , continue current regimen. Type 2 amy betes mellitus without complication 469316058 E11.9 Well controlled without meds. Continue diet/lifes tyle changes and monitoring . Need new glucose monitor. Kidney stone 56176658 N2 0.0 This is why she is on diuretic. Will continue potassium supplement as long as this is the case. Hypothyroidism 63131938 E03.9 Clinically euthyroid. Will monitor labs. Obstructiv e sleep apnea syndrome 35965251 G47.33 Using CPAP. Having symptoms. Will assess for treatment effectiven ess. Hypokalemia 49077099 E87 .6 Likely from indapamide which she is on for kidney stone prophylaxi s. Will supplement and reassess. 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 Had normal cardiac CT recently.P t states that anxiety is the cause of c/p -- has had sig stressors lately, mireille c 's health / moving him to snf Anxiety 37002162 F41.9 Pt did not take hydroxyzin e.continue sertaline and tapering of buproprion as dir by psychiatri c nurse practition er Gastroesop hageal reflux disease 988407460 K21.9 Pt on pepcid for GERd, tolerates it well. No PPI.Was on omeprazole for 2 weeks a few years and did not tolerate it and so was discontinu ed. Hypokalemia 70358799 E87 .6 recheck bmp Essential hypertension 82117087 I10 bp stable - cont meds as dir [id number] Poncho Britton MD Main Office [address] [place] [address] 05/21/2022 13:54:04 05/21/2022 15:23:00 Adult health examination 311641742 Z00.00 Immunizati on status and screening utd based on risk factors. Flu advised in the Fall. Regular dental and ophtho care advised as well as seat belt and sunscreen use. Distracted driving discussed. Breast, cervical and colon cancer screening are current. Currently demonstrat es low risk for falls and no significan t cognitive decline. Advance directives in place. Type 2 amy betes mellitus without complication 063287779 E11.9 Has been well controlled without meds. Continue diet/lifes tyle changes and monitoring . Need new glucose monitor. Optho exam utd Pure hypercholesterolemia 860577978 E78.01 LDL at goal on moderate dose statin. Will continue current regimen. Hypothyroidism 50709263 E03.9 Clinically euthyroid. Will monitor labs. Essential hypertension 03475764 I10 Well controlled , continue current regimen. Screening for malignant neoplasm of breast 073807654 Z12.39 Pt declines screening based on low risk history and age. Pain of le ft shoulder joint 9285330536 4106468 M25.512 Will try home PT and call for ortho eval inb/worse. Headache 58243627 R51.9 Worsening, with diplopia, and atypical. No recent intracrani al imaging. Diplopia 61800314 H53.2 Hypokalemia 73369380 E87 .6 Likely from indapamide which she is on for kidney stone prophylaxi s. Will comply better with supplement and reassess. Major depr ession single episode, in partial remission 60086091 F32.4 Symptoms well controlled on SSRI/bupro prion Obstructiv e sleep apnea syndrome 02813448 G47.33 Using CPAP. Having symptoms. Will assess for treatment effectiven ess. Osteoarthr itis of knee 380776166 M17.11 Scheduling right TKR Body mass index 25-29 - overweight 093381005 E66.3 Z68.28 Dilatation of aorta 2666 0001 I71.[address] angio that was unremarkab le. Following with cardiology . [id number] Danae Rubin RN Main Office [address] [facility] [address] [facility] [place] [address] 06/26/2022 11:22:10 07/03/2022 11:39:24 [id number] Poncho Britton MD Main Office [address] [facility] [address] [facility] [place] [address] 08/20/2022 14:34:03 08/20/2022 15:25:56 Fatigue 11423414 R53.83 Potentiall y multifacto rial. Will reduce citalopram to 20mg and let me know how symptoms are impacted. Screen for common metabolic etiologies including reassess of hypothyroi d/diabetes status. Hypothyroidism 67439550 E03.9 Clinically euthyroid. Will monitor labs. Major depr ession single episode, in partial remission 02625314 F32.4 Wonder if citalopram is affording fatigue. Will try reducing SSRI dose which was titrated prior to worsening symptoms. Obstructiv e sleep apnea syndrome 91102726 G47.33 Off of CPAP, has sleep study 08/29. Type 2 amy betes mellitus without complication 105711164 E11.9 Has been well controlled without meds to this point. Dilatation of aorta 2666 0001 I71.21 3.7cm ascending aortic dilation followed by cardiology . [id number] Bernardo Dumont MD Main Office [address] [facility] [address] [place] [address] 10/26/2022 10:42:33 10/26/2022 12:14:00 Herpes zoster 8737920 B02.9 vesicular lesion will treat for shingles.A dvised to keep lesion covered.Or ders per below [id number] MAY MONROE MD Main Office [address] [address] [place] [address] 11/08/2022 14:06:31 11/08/2022 15:03:13 Herpes zoster 5709970 B02.9 - improved, no new vesicles however erythema and tenderness still present- completed valacyclov ir treatment- will continue gabapentin treatment due to continued pain- can c/w lidocaine cream as needed Atypical chest pain 1025 65020 R07.89 - pain located on the right side at the side of the recent shingles eruptions- pain most likely coming from the shingles virus than a cardiac etiology- EKG was done for completene ss which was normal (no new changes from previous EKG)> pt has inverted t-waves and arrhythmia noted however this not new findings Swelling o f ankle joint 019101542 M25.471 - left sided worse than the right- suspect venous insufficie ncy- ordered ABDULLAHI/PVR for further evaluation - pt advised to start using compressio n stockings [id number] Poncho Britton MD Main Office [address] [address] [place] [address] 01/06/2023 12:36:21 01/06/2023 13:22:44 Pure hypercholesterolemia 470088462 E78.01 LDL at goal on moderate dose statin. Will continue current regimen. Essential hypertension 54411646 I10 Well controlled , continue current regimen. Type 2 amy betes mellitus without complication 160900279 E11.9 Has been well controlled without meds to this point. Hypothyroidism 99799787 E03.9 Clinically euthyroid. Will continue current dose. [id number] Poncho Britton MD Main Office [address] [address] [place] [address] 05/20/2023 13:57:47 05/20/2023 14:41:08 Fatigue 44618825 R53.83 Potentiall y multifacto rial. . Screen for common metabolic etiologies including reassess of hypothyroi d/diabetes status. Possibly viral or nutritiona l issues. Lesion of tongue 7423542 05 K14.9 Will ask oral surgeon to evaluate and consider bx if persistent /worse. Type 2 amy betes mellitus without complication 641667796 E11.9 Has been well controlled without meds to this point. [id number] Poncho Britton MD Main Office [address] [facility] [address] [facility] [place] [address] 06/03/2023 13:47:26 06/03/2023 14:43:31 Adult health examination 166399765 Z00.00 Immunizati on status partially updated. COVID booster, and flu advised when available. Regular dental and ophtho care advised as well as seat belt and sunscreen use. Distracted driving discussed. Breast, cervical and colon cancer screening are current. Currently demonstrat es low risk for falls and no significan t cognitive decline. Advance directives in place. Lesion of oral mucosa 10 88860472 931715 K13.70 Previous referral not able to see her. Pt will contact Dr Sinha's office and let me know if there are any further issues getting an eval. Obstructiv e sleep apnea syndrome 16058879 G47.33 Off of CPAP, advised to follow up with sleep medicine if unable to resume. Body mass index 30+ - obesity 175894778 E66.9 Z68.31 Requires a tetanus booster 059575617 Z23 Major depr ession in partial remission 68487875 F32.4 Stable despite numerous stressors on SSRI/bupro pion. Following with therapist as well. Will monitor. Dilatation of aorta 2666 0001 I71.21 3.7cm ascending aortic dilation, no echo since 2019, will arrange. Type 2 amy betes mellitus without complication 763121057 E11.9 Has been well controlled without meds to this point. Pure hypercholesterolemia 916906052 E78.01 LDL at goal on moderate dose statin. Will continue current regimen. [id number] Poncho Britton MD Main Office [address] [facility] [address] [facility] [place] [address] 11/03/2023 14:15:21 11/03/2023 15:04:58 Essential hypertension 37334203 I10 Well controlled , continue current regimen. Chest wall pain 28505509 6 R07.89 c/w pectoralis muscle strain likely from lifting/co ugh. No palpable abnormalit y on exam. Would refer for imaging if persistent /worse or palpable abnormalit y identified . Type 2 amy betes mellitus without complication 757936847 E11.9 Has been well controlled without meds to this point. Mitral prudencio ve regurgitation 90038705 I34.0 Asymptmati c, will monitor. [id number] Poncho Britton MD Main Office [address] [facility] [place] [address] 03/15/2024 13:22:36 03/15/2024 14:32:07 Fatigue 20792251 R53.83 Potentiall y multifacto rial. . Screen for common metabolic etiologies including reassess of hypothyroi d/diabetes status. Possibly related to mood issues or medication s. Essential hypertension 44208234 I10 Well controlled , continue current regimen. Possible contributo r as well but inly on diuretic. Adequate hydration techniques discussed. Type 2 amy betes mellitus without complication 708169791 E11.9 Has been well controlled without meds to this point. Mitral prudencio ve regurgitation 40506108 I34.0 Asymptomat ic, will monitor. Obstructiv e sleep apnea syndrome 61423067 G47.33 Off of CPAP, advised to follow up with sleep medicine if fatigue persists. Did see them earlier this month and it wasn't felt that her degree of apnea was that significan t. [id number] Poncho Britton MD Main Office [address] [facility] [place] [address] 05/03/2024 10:39:38 05/03/2024 11:42:07 Lightheadedness 655630788 R42 Suspect that dehydratio n from heat, diuretic therapy and poor H2O intake. Increased water intake advised. No evidence to suggest that this is cardiac related. Sinus tachycardia 956163 01 R00.0 Also c/w poor hydration. Thyroid labs normal. Nausea 225259419 R11.0 Possibly from gastritis secondary to stress, steroid injection and ASA use. Will d/c ASA dn switch from famotidine to omeprazole for short term. Essential hypertension 86361492 I10 Well controlled , continue current regimen. Possible contributo r as well but only on diuretic. Adequate hydration techniques discussed. Total bili smith above reference range 2151406696 81995 R17 Pt is s/p cholecyste ctomy, will recheck and consider imaging if abnormalit ies and symptoms persist. [id number] Hal Riech MD Main Office [address] [facility] [address] [facility] [place] [address] 05/24/2024 15:22:34 05/24/2024 16:10:33 Herpes zoster 1389899 B02.9 [id number] Poncho Britton MD Main Office [address] [facility] [address] [facility] [place] [address] 06/07/2024 09:37:05 06/07/2024 10:30:47 Adult health examination 097036141 Z00.00 COVID booster advised via local pharmacy. Regular dental and ophtho care advised as well as seat belt and sunscreen use. Distracted driving discussed. Breast, cervical and colon cancer screening are current. Currently demonstrat es low risk for falls and no significan t cognitive decline. Advance directives in place. Influenza vaccine needed 5476105580 106 Z23 Body mass index 30+ - obesity 393951709 E66.9 Z68.30 Obstructiv e sleep apnea syndrome 34580089 G47.33 Off of CPAP, advised to follow up with sleep medicine if unable to resume. Major depr ession in partial remission 76002889 F32.4 Stable despite numerous stressors on SSRI/bupro pion. Following with therapist as well. Will monitor. Type 2 amy betes mellitus without complication 098566227 E11.9 Has been well controlled without meds to this point. Pure hypercholesterolemia 579691019 E78.01 LDL at goal on moderate dose statin. Will continue current regimen. Asthma 200462149 J45.20 Well controlled based on bronchodil ator use, will continue. Calcificat ion of coronary artery 173284731 I25.84 Working on risk factor control. Will titrate statin if LDL still >70 on repeat. Aneurysm o f thoracic aorta 617612783 I71.21 3.7cm ascending aortic dilation, stable. Following with cardiology . [id number] Dayana Burrell Main Office [address] [facility] [address] [place] [address] 09/13/2024 14:31:40 09/13/2024 15:38:21 Open wound of left lower leg 0899212221 0395748 S81.802A Wound care advised, barrier cream recommende d. Call if not slowly improving/ worse. Cellulitis of left lower limb 2122568897 3057663 L03.116 On appropriat e abx regimen via UC. Advised to continue. [id number] Tika Santana MA Main Office [address] [facility] [address] [place] [address] 09/18/2024 09:07:52 09/18/2024 09:45:12 Pain of left calf 7915606784 448556 M79.662 R/o DVT. D-dimer today, venous ultrasound order placed in. Pt. will continue current antibiotic s. [id number] Bernardo Dumont MD Main Office [address] [facility] [address] [place] [address] 11/06/2024 10:34:13 11/06/2024 12:28:46 Essential hypertension 96257729 I10 I reviewed the patient? s ECG, which showed some flat T waves, but I am not convinced this represents ACS. However, given the significan tly elevated blood pressure readings, I will check a one-time troponin to further assess for any cardiac involvemen t. I discussed with the patient that this test will not definitive ly rule out ACS, and I advised her to seek immediate emergency care if she develops chest pain, shortness of breath, neurologic al changes, a severe headache, or any other concerning symptoms. ED precaution s were reviewed. I ordered and will review basic metabolic panel (BMP) and urinalysis to assess for any electrolyt e abnormalit ies, kidney function impairment , or other secondary causes of hypertensi on. For blood pressure management , I advised the patient to continue monitoring her BP closely. If her blood pressure remains elevated, she may continue taking indapamide 1.25 mg, as long as she tolerates it well. If her BP does not stabilize, I recommend that she schedule an appointmen t with her PCP to discuss further management , including the possible addition of a calcium channel frances (CCB) to help regulate her blood pressure. I will follow up as needed based on her lab results and BP trends, and I reinforced the importance of seeking urgent care if her BP remains critically high or if she develops new or worsening symptoms. [id number] Poncho Britton MD Main Office [address] [place] [address] 12/06/2024 10:25:17 12/06/2024 11:18:32 Essential hypertension 11829150 I10 Based on ambulatory BP monitoring better control needed. Will resume indapamide , continue losartan at current dose. Type 2 amy betes mellitus without complication [id number] E11.9 Has been well controlled without meds to this point, but if >7.5 will need rx, consider metformin vs SGLT2 inhibitor. Asthma [id number] J45.20 Well controlled based on bronchodil ator use, will continue. 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 Memory impairment 426670 006 R41.3 Will screen for potential deficienci es and reimage to rule out new CVA/mass. 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 Will increase to 80mg daily. [id number] John Nesbitt PA-C Main Office [address] [address] [place] [address] 12/15/2024 12:53:45 12/15/2024 14:37:56 Acute sinusitis 65546787 J01.90 recommend probiotics while on abx Herpes labialis 2393187 B00.1 pt c/o early sxs of cold sore [id number] Poncho Britton MD Main Office [address] [place] [address] 12/20/2024 10:39:07 12/20/2024 12:19:30 Anxiety 32461731 F41.1 Seems worse since stopping SSRI and effectivel y being on buproprion alone. Resume SSRI and see if fluoxetine is better tolerated and effective. Pt working on connecting with a therapist and is going to stopp following with Milly because of logistical issues. Major depr ession single episode, in partial remission 07117509 F32.4 Seems worse since stopping SSRI and effectivel y being on buproprion alone. Will continue buproprion as well for now. Essential hypertension 53149258 I10 Well controlled on diuretic with K supplement . Will confirm that level has normalized . Memory impairment 072297 006 R41.3 I suspect that this is related to the poorly controlled mood issues. Will defer further testing and monitor with resumption of SSRI therapy. [id number] Poncho Britton MD Main Office [address] [facility] 207 [facility] [place], [place] [address] 01/04/2025 10:45:02 01/06/2025 17:12:09 [id number] MAY MONROE MD Main Office [address] [facility] 207 [facility], [place] [address] 01/08/2025 09:22:36 01/08/2025 10:37:37 Recurrent falls [id number] R29.6 Do believe that the reasons for fall may be multifacto rial. Symptoms associated with the fall are tremors and mental fog. Would like to focus on three areas of the possible cause of the falls:(1) cardiogeni c: pt today as low blood pressure. Has a cardiac history and when patient was last seen by cardiologi st was complainin g of palpitatio ns. Still awaiting echo and holter monitor.> orthostati c positive: diastolic difference of 10+ mmhg with symptoms -> PLEASE NOTE patient too weak/unste sohail to get up on exam table(2) neurogenic : worried that perhaps underlying movement disorder may be missed. this is because in addition to the increase in falls patient is also having tremors and recent trouble with her memory. CT head done on 01/02 was negative.( 3) metabolic: patient has not been eating and drinking as she usually does since she moved into assisted living. also unsure of how hydrated she stays during the day due to the low BP she had in office today(4) overall muscle weakness: Get up and go test was failed (20 seconds). pt feels this is not an issue because physical therapist has told she does not have weakness however this was not supported based on exam and get-up and go test. Plan:- will check vitamin D, vitamin b12, BMP- pt was not able to give urine so urine dip was cancelled to be considered for future- ordered MRI brain to ensure there is nothing missing as there has been acute changes since last hospitaliz ation (more falls, memory problems and tremors)- pt referred to neurology to r/out movement disorders- c/w home physical therapy -> to consider balance physical therapy after completion of this- pt advised to hold losartan due to low BP> PLEASE NOTE: RICKY CALLED ANSWERING SERVICE AND TOLD MD PATIENT IS NOT ON LOSARTAN EVEN THOUGH YAEL MENTIONED SHE WAS TAKING IT. ADVISED TO 1/2 INDAPAMIDE INSTEAD- will call cardiology to ask about scheduling of holter and to discuss the low BP- will touch base with patient on Friday as she will be taking her BP twice daily- advised to continue to use the wheelchair has patient is a very big fall risk- RTC in one week History of fall [id number] 9 Z91.81 - has been having several falls since December 2024- c/w home physical therapy- after completion of home physical therapy would strongly recommend balance PT with [facility] Transition from acute care to self-care [id number] 81849 Z76.89 - reviewed hospital course Hypothyroidism 23955898 E03.9 - currently unsure if patient is taking levothyrox ine- pt mentions she takes it but daughter did not read it to MD while on the phone- will check thyroid function Coronary atherosclerosis [id number] I25.10 Tremor 69347193 R25.1 - see above Health Concerns Section Related Observation LastModified by Organization Detai ls LastModified Time None Recorded Concern Status LastModified by Organization Details LastModified Time None Recorded Advance Directives Directive Y: HCP/ Son-Adrian Dtr-Bellafarooq en Payers Encounter Date Sequence Insurance Name Policy Number Policy Gonzales Covered Member ID Gonzales Member ID Guarantor Name 12/06/2024 1 [place] [employer] Nataliia B Amado [id number] Nataliia B Amado 12/06/[address] [facility] [id number] Nataliia B B Amado [id number] Nataliia B Amado 12/15/2024 1 [place] [employer] Nataliia B Amado [id number] Nataliia B Amado 12/15/[address] [facility] ([facility] [id number] Nataliia B B Amado [id number] Nataliia B Amado 12/20/2024 1 [place]: [employer] Nataliia B Amado [id number] Nataliia B Amado 12/20/[address] [facility] ([facility] [id number] Nataliia B B Amado [id number] Nataliia B Amado 01/04/2025 1 [place] [employer] Nataliia B Amado [id number] Nataliia B Amado 01/04/[address] [facility] ([facility] [id number] Nataliia B B Amado [id number] Nataliia B Amado 01/08/2025 1 MEDICARE [place]: [facility] Nataliia B Amado [id number] Nataliia B Amado 01/08/[address] [facility] ([facility] [id number] Nataliia B B Amado [id number] Nataliia B Amado Notes Date Note Type Note Provider Name and Address Organization Details Recorded Time 12/06/2024 text/html DementiaReported bypatient.Quality:forg etting names or everyday words Severity:mild Duration:months; 2 years Onset/Timing:insidious Context:difficulty planning or organizing; sleep disturbance Associated Symptoms:no anxiety;depressionNote s:Has had head MRI back in 2021 that showed lacunar infarcts of BG. States that memory is getting worse and having sinus headaches.Diabetes F/UReported bypatient.Context:norm al range of home blood sugars (in the low 100s); seeing eye doctor regularly Associated Symptoms:no weight gain; no weight lossNotes:Last A1c was 7.4,HyperlipidemiaRepo rted bypatient.Type of hyperlipidemia:hyperch olesterolemia Duration:chronic Control:usually well controlled; at goal Current Therapy:currently taking: (atorvastatin); last cholesterol level: (194); last LDL level: (107); last triglyceride level: (115); last HDL level: (70) Compliance:compliant; compliant with diet; exercises Complications:no coronary artery disease; no peripheral artery disease; no cardiovascular disease Risk Factors:diabetes;hyper tension;obesityHyperte nsion F/UReported bypatient.Associated Symptoms:no dizziness; no lightheadedness; no chest pain; no shortness of breath; no palpitations; no edema Lifestyle:regular exercise; limiting/avoiding salt Medications:taking medications as directed; no side effects from medicationNotes:Restar geoffrey losartan last month via Dr Dumont. Has been off of indapamide since Aug 2024ThyroidReported bypatient.Quality:impr oving; not changing Context:normal thyroid levels Poncho Britton MD [address] [facility] [address], [place], [address], [facility] 12/06/2024 12:31:34 12/15/2024 text/html Nasal congestion x1 month. No cough or nasal discharge. Has not taken Zyrtec, but bought it a few days ago since she tends to have seasonal allergies. She notes a sharp pain in the left ear which started this morning. She took Tylenol for arthritis this morning which helped with the ear pain. Denies feeling of fullness. John Nesbitt PA-C [address] [facility] [address], [place], [address], [facility] 12/15/2024 15:18:41 12/20/2024 text/html Anxiety/Depressi onRepo rted bypatient.Quality:mood worse;increased anxiety Severity:denies suicidal ideations; does not interfere with activities of daily living Duration:symptoms lasting over 2 weeks Context:major life stressors(moving to assisted living with who is in adjacent memory disorders unit.)Notes:Patient has been following with Milly Franklin who recently started her on lamotrigine which she did not tolerate well. Was on citalopram until last Fall. Has been having increased depression/anxiety and memory issues since then. Previously has been on sertraline and duloxetine as well. Looks like she had been tried on aripiprazole as well but also did not tolerate.DementiaRepor geoffrey bypatient.Quality:forg etting names or everyday words Severity:mild Duration:months; 2 years Onset/Timing:insidious Context:difficulty planning or organizing; sleep disturbance Associated Symptoms:no anxiety;depressionNote s:Has had head MRI back in 2021 that showed lacunar infarcts of BG. During recent ED visit had CT scan that was negative for acute findings including sinus diease.Diabetes F/UReported bypatient.Context:norm al range of home blood sugars (in the low 100s); seeing eye doctor regularly Associated Symptoms:no weight gain; no weight lossNotes:Last A1c was 7.4,HyperlipidemiaRepo rted bypatient.Type of hyperlipidemia:hyperch olesterolemia Duration:chronic Control:usually well controlled; at goal Current Therapy:currently taking: (atorvastatin); last cholesterol level: (194); last LDL level: (107); last triglyceride level: (115); last HDL level: (70) Compliance:compliant; compliant with diet; exercises Complications:no coronary artery disease; no peripheral artery disease; no cardiovascular disease Risk Factors:diabetes;hyper tension;obesityHyperte nsion F/UReported bypatient.Associated Symptoms:no dizziness; no lightheadedness; no chest pain; no shortness of breath; no palpitations; no edema Lifestyle:regular exercise; limiting/avoiding salt Medications:taking medications as directed; no side effects from medicationNotes:Restar geoffrey diuretic since last visit, but also went to the ED on 12/10 because of elevated BP and headache. ACS ruled out, but K was low. Poncho Britton MD [address], [address], [facility] 12/20/2024 13:02:38 01/04/2025 text/html Hospitalization Contact RecordReported bypatient.[facility]; admit date: (Please enter in format 'MM/DD/YYYY') (01/02/25); date of discharge: (Please enter in format 'MM/DD/YYYY') (01/03/25); date of contact: (Please enter in format 'MM/DD/YYYY') (01/04/25)Notes:Medica re covered inpatient stay? yesMedicare RIKA with in 48 working hours? yesHigh Complexity code valid on or before:DecemberModerate Complexity code valid on or before:DecemberHCP on file? yesMOLST on file? noDischarge Summary available? yes01/04/2025- attempt to contact pt, message left for pt to return call Pt presented to [facility] after a fall. Pt fell at a hockey game. Unclear as to what happened as it all happened so fast. States she fell down 2-3 steps, twisting both knees underneath the stadium seating and hitting the back of her head. Was able to ambulate at home but felt weak. Woke around 4 am with a headache, nausea, neck pain as well as bilateral knee pain which had been worsening.In ED, EKG done and read as NSR, left axis deviation, low voltage QRS. CT head and neck are non-acute. X-rays of bilat knees reveals previous TKR w/o fx or dislocation. CT chest/abd/pelvis shows no evidence of acute traumatic injury. CT bilat lower extremities reveal s/p knee arthroplasty w/o evidence of periprosthetic fx. MRI C spine shows no evidence of acute traumatic injury to the cervical spine, and mild multilevel degenerative changes. Seen by PT, recs home with services. MEDS RECONCILED Poncho Britton MD [address] [facility] [address], [place], [address], [facility] 01/06/2025 17:12:09 01/08/2025 text/html Hospitalization Contact RecordReported bypatient.Follow UpHospital: [facility]; admit date: (Please enter in format 'MM/DD/YYYY') (01/02/25); date of discharge: (Please enter in format 'MM/DD/YYYY') (01/03/25); date of contact: (Please enter in format 'MM/DD/YYYY') (01/04/25)Notes:Medica re covered inpatient stay? yesMedicare RIKA with in 48 working hours? yesHigh Complexity code valid on or before:DecemberModerate Complexity code valid on or before:DecemberHCP on file? yesMOLST on file? noDischarge Summary available? yes01/04/2025- attempt to contact pt, message left for pt to return call Pt presented to [facility] after a fall. Pt fell at a hockey game. Unclear as to what happened as it all happened so fast. States she fell down 2-3 steps, twisting both knees underneath the stadium seating and hitting the back of her head. Was able to ambulate at home but felt weak. Woke around 4 am with a headache, nausea, neck pain as well as bilateral knee pain which had been worsening.In ED, EKG done and read as NSR, left axis deviation, low voltage QRS. CT head and neck are non-acute. X-rays of bilat knees reveals previous TKR w/o fx or dislocation. CT chest/abd/pelvis shows no evidence of acute traumatic injury. CT bilat lower extremities reveal s/p knee arthroplasty w/o evidence of periprosthetic fx. MRI C spine shows no evidence of acute traumatic injury to the cervical spine, and mild multilevel degenerative changes. Seen by PT, recs home with services. MEDS RECONCILED Nataliia Amado is an 84 year old F who presents with daughter for complaints of recurrent falls. Pt is currently living in an assisted living facility. Pt mentions that since her hospitalizations she has been falling more and more everyday. She mentions that this is not her baseline and both her and her daughter are concerned. Since hospital in discharge patient has been evaluated by physical therapy. Mentions to MD that she has been doing very well. Continues to get home services and physical therapy. Pt mentions she is aware that she is falling. Does have a hard time getting out. No head trauma or LOC per patient. However none of these falls are witnessed. Pt also mentions she is more fatigued and has noticed tremors. Also gets nausea before she feels like falling. Daughter does add that her mother has been having mental fog. Please note that since hospital discharge patient has not contacted cardiology yet. Unsure if she has holter monitor or echo ordered or has it scheduled. MAY MONROE MD [address] [facility] [address], [place], [address], [facility] 01/08/2025 15:45:02 OBGyn Episode No OBEpisode recorded.
--- OUTSIDE RECORDS SUMMARY | 2025-01-13 06:14 | XMS_ITS | Clinical Summary ---
Author Organization [facility] Address [address] [place] [address] Care Team Providers Care Channel Layer Name Role Phone Poncho Wise MD Primary Care Provider Allergies No known active allergies Social History Tobacco Use Types Packs/Day Years Used Date Smoking Tobacco: Never Assessed Comments Unknown Sex and Gender Information Value Date Recorded Sex Assigned at Not on file Legal Sex Female 12:11 PM EST Gender Identity Not on file Sexual Orientation Not on file Last Filed Vital Signs Vital Sign Reading Time Taken Comments Blood Pressure 119/73 01/02/2022 2:26 PM EDT Pulse 48 01/02/2022 2:26 PM EDT Temperature - - Respiratory Rate 16 01/02/2022 2:26 PM EDT Oxygen Saturation 99% 01/02/2022 2:26 PM EDT Inhaled Oxygen Concentration - - Weight - - Height - - Body Mass Index - - Plan of Treatment Health Maintenance Due Date Last Done Comments DTaP/Tdap/Td Vaccines (1 - Tdap) 02/12/1960 Pneumococcal Vaccines 50+ (1 of 1 - PCV) 1991 Zoster (Shingles) Vaccine (1 of 2) 1991 DXA Bone Density (Females,Ages 65 and older) 2006 RSV Vaccine 60 years and older and Patients (1 - 1-dose 75+ series) 02/12/2016 Influenza Vaccine 04/29/2024 06/30/2019, , 06/08/2017, Additional history exists COVID-19 Vaccine ( - 2023- season) 2024 12/09/2020, 11/11/2020 Hepatitis B Vaccines Aged Out No long er eligible based on patient's age to complete this topic Insurance MEDICARE PART A & B [facility] Care Teams Channel Layer Relationship Specialty Start Date End Date Poncho Wise MD [address] [address] PCP - General 12/03/21
--- OUTSIDE RECORDS SUMMARY | 2025-01-13 06:14 | XMS_ITS | Clinical Summary ---
Author Organization [facility] Address [address] [place] [address] Care Team Providers Care Salesperson Stereo Equipment Name Role Phone Poncho Wise MD Primary Care Provider + [phone] Medications Medication Sig Dispensed Refills Start Date End Date Status doxycycline (VIBRAMYCIN) 100 MG capsule Take 1 capsule (100 mg total) by mouth 2 (two) times a day. 20 capsule 0 11/09/2021 Active Social History Tobacco Use Types Packs/Day Years Used Date Smoking Tobacco: Never Assessed Sex and Gender Information Value Date Recorded Sex Assigned at Not on file Gender Identity Not on file Sexual Orientation Not on file Job Start Date Occupation Industry Not on file Not on file Not on file Last Filed Vital Signs Vital Sign Reading Time Taken Comments Blood Pressure - - Pulse - - Temperature - - Respiratory Rate - - Oxygen Saturation - - Inhaled Oxygen Concentration - - Weight 66.7 kg (147 lb) 11/09/2021 11:53 AM EST Height 154.9 cm (5' 1 ) 11/09/2021 11:53 AM EST Body Mass Index 27.78 11/09/2021 11:53 AM EST Plan of Treatment Health Maintenance Due Date Last Done Comments Depression Screening 1952 Preventative Health Evaluation 1959 Fall Risk Assessment 2006 Osteoporosis Screening (DEXA Scan) 2006 DTap / Tdap / Td (2 - Td or Tdap) 08/13/2023 08/13/2013 COVID-19 Vaccine ( season) 2024 09/15/2023, 07/16/2022 Influenza Vaccine (#1) 2024 , 07/16/2022, 06/30/2021, Additional history exists Pneumococcal Vaccine Completed 10/13/2014, 01/04/20 08 Shingrix-Zoster Vaccine Completed 07/06/20, 09/09/2020, 06/02/2019, Additional history exists RSV Adult > 60+ Yrs or Completed 09/15/2023 Hepatitis B Vaccines Aged Out No long er eligible based on patient's age to complete this topic RSV Ped < 20 months Aged Out No longe r eligible based on patient's age to complete this topic Care Teams Salesperson Stereo Equipment Relationship Specialty Start Date End Date Poncho Wise MD [address] [place] [address] PCP - General Internal Medicine 10/12/21
--- OUTSIDE RECORDS SUMMARY | 2025-01-13 06:14 | XMS_ITS | Continuity of Care Document ---
Author Organization [facility], Main Office Address [address] [place] [address] Care Team Providers Care Accordion Tuner Name Role Phone PONCHO BRITTON Primary Care Provider [phone] ROBIN TSANG OTHER DREA MCNEIL Board Worker ARLYN RODRIGUES Racing Driver DYLON MATTHEW Gynecological/Oncology [facility] Cable Splicer Assistant [facility] Summer Analyst ZACK MEADOWS Orthopedic Surgeon [phone] DENNIS RINALDI Cylinder Dyer DANIEL LYNCH Cable Splicer Assistant [phone] [facility] (RU BURGOS) Orthopedic Surgeon DIMA HELTON Urologist TYSON JEFFERY Drywall Taper LUDY BUENROSTRO Dog Daycare Provider JOSÉ ARGUELLES Word Processor Operator Assessment No assessment recorded. Plan of Treatment Reminders Order Date Submit Date Provider Last Modified By Organization Details Last Modified Time Details Appointments telehealt h40 2024 01:45P M Poncho Britton MD Not available Not available Not available FOLLOW UP 30MIN 2024 01:45P M Poncho Britton MD Not available Not available Not available [id number] 2024 10:15A M Poncho Britton MD Not available Not available Not available Lab vitamin D, 25-hydrox y, total, serum 2024 [facility] (Centralized Electronic Ordering - All Locations), Patient Can Go To The Location Of Their Choice, [facility] 01/08/2025 10:27:28 vitamin B12, serum 2024 025 KARIN [facility] (Centralized Electronic Ordering - All Locations), Patient Can Go To The Location Of Their Choice, [id number] 01/08/2025 10:27:28 BMP, serum or plasma 2024 KARIN [facility] (Centralized Electronic Ordering - All Locations), Patient Can Go To The Location Of Their Choice, [id number] 01/08/2025 10:27:28 TSH + free T4, serum 2024 KARIN [facility] (Centralized Electronic Ordering - All Locations), Patient Can Go To The Location Of Their Choice, [facility] 01/08/2025 10:27:[address] referral - pt is having recurrent falls, memory deficits and tremors, referred to explore movement disorder 2024 [facility], [address] [place] [address] [address], [place], [address], 01/10/2025 15:24:07 Procedures None recorded. Surgeries None recorded. Imaging MRI, brain, w/o contrast - more falls, memory problems and tremors 2024 025 [email or web address] Not available 01/10/2025 14:25:04 Medication Orders None recorded. Patient TargetsNo targets recorded. Patient Instructions Encounter Date Encounter Id Patient Instructions Last Modified By Organization Details Last Modified Time 01/08/2025 [id number] orthostatic vitals* ATHENAFAX Not available 01/08/2025 10:27:32 [...] Abnormal Flag Note LastModifiedBy Organization Detail LastModifiedTime 12/16/19 25 ECG 12-le ad No observ ation record ed. [address], [place], [address], 12/20/2024 12:03:54 Result Notes None recorded. Problems Name Problem SNOMED Code Status Onset Date Resolution Date Notes Provider Name and Address Organization Details Recorded Time Thyroid function tests abnormal [id number] Completed 201204/12/2014 IMPRESSI ON: MILD SBNORMAL ITY, WILL REASSESS IN 4-6 WEEKS.; RECORDED 02/09/20 13 10:23AM BY JANET HUMPHRIES MA, ANNOTATI ON/EMIGDIO Britton MD [address], [place], [address] , [facility] 6 09:37:22 Allergic rhinitis 17009972 Completed 201204/12/2014 RECORDED 02/09/20 13 10:23AM BY JANET HUMPHRIES MA, ANNOTATI ON/EMIGDIO Britton MD [address], [place], [address] , [facility] 9 08:00:33 Arthropa thy 440523813 Completed 201302/05/2018 Poncho Britton MD [address], [place], [address] , [facility] 8 09:02:10 Patient status finding [id number] Completed 201204/12/2014 RECORDED 02/09/20 13 10:23AM BY JANET HUMPHRIES MA, ANNOTATI ON/ADDILIANA Britton MD [address], [place], [address] , [place] [facility] 6 09:37:22 Asthma 497287042 Active 2013 Not Available [facility] 3 09:17:03 Cough 15069409 Completed 201204/12/2014 IMPRESSI ON: STORY AND QUALITY OF COUGH RAISES POSSIBLE CONCERN FOR PERTUSSI S. WILL DEFER CONFIRMA TORY TESTING AND TREAT EMPIRICA LLY. IF PERSISTA NT/WORSE WILL NEED FURTHER EVAL. ALSO PROVIDE SYMPTROM ATIC RX TO HELP AT NIGHT.; RECORDED 02/09/20 13 10:23AM BY JANET HUMPHRIES MA, KEVIN BLACK/EMIGDIO Britton MD [address], [place], [address] , [facility] 6 09:37:22 History of depressi on [id number] Completed 201304/12/2014 RECORDED 12/01/19 14 10:42AM BY JANET HUMPHRIES MA, KEVIN ON/EMIGDIO Britton MD [address] [facility] [address], [place], [address] , [facility] 6 09:37:22 Type 2 diabetes mellitus without complica tion 829378900 Active 2013 Not Available [facility] 3 09:17:04 Diabetes mellitus 54484300 Completed 201304/12/2014 RECORDED 12/01/19 14 10:42AM BY JANET HUMPHRIES MA, KEVIN ON/EMIGDIO Britton MD [address], [place], [address] , [facility] 6 09:37:22 Type 2 diabetes mellitus without complica tion 350650020 Completed 201204/12/2014 IMPRESSI ON: WELL CONTROLL ED, A1C AT GOAL. OPTHO EXAM UTD. CONTINUE CURRENT REGIMEN. ; RECORDED 07/02/20 13 11:44AM BY JANET HUMPHRIES MA, KEVIN BLACK/EMIGDIO Britton MD [address], [place], [address] , [facility] 8 09:02:07 Dysuria 73420246 Completed 201104/12/2014 RECORDED 08/14/20 12 1:42PM BY JANET HUMPHRIES MA, ANNOTATI ON/EMIGDIO Britton MD [address] [facility] [address], [place], [address] , [facility] 6 09:37:22 Follow-u p encounte r Completed 201304/12/2014 RECORDED 12/01/19 14 10:41AM BY JANET HUMPHRIES MA, KEVIN ON/EMIGDIO Britton MD [address] [facility] [address], [place], [address] , [facility] 6 09:37:22 Influenz a vaccine needed 42514741159 06 Completed 201104/12/2014 RECORDED 08/07/20 12 1:48PM BY JANET HUMPHRIES MA, OFFICE VISIT Poncho Britton MD [address] [facility] [address], [place], [address] , [facility] 6 09:37:22 Gastroes ophageal reflux disease 422950046 Completed 201304/12/2014 RECORDED 12/01/19 14 10:42AM BY JANET HUMPHRIES MA, KEVIN ON/EMIGDIO Britton MD [address] [facility] [address], [place], [address] , [facility] 7 09:04:21 Adult health examinat ion Completed 201204/12/2014 IMPRESSI ON: WILL UPDATE IMMUNIZA TION STATUS AND SCREEN BASED ON RISK FACTORS. REGULAR DENTAL CARE AND SEATBELT USE ADVISED. DISTRACT ED DRIVING DISCUSSE D. PAP/MAMM OPGRAM/O PHTO EXAM AND COLONOSC OPY UTD.; RECORDED 02/09/20 13 10:23AM BY JANET HUMPHRIES MA, KEVIN ON/EMIGDIO Britton MD [address], [place], [address] , [facility] 6 09:37:22 Pure hypercho lesterol emia 752783068 Active 2013 Not Available [facility] 3 09:17:04 Hypercho lesterol emia 77846205 Completed 201304/12/2014 RECORDED 12/01/19 14 10:42AM BY JANET HUMPHRIES MA, KEVIN ON/ADDEN CHAPARRO Britton MD [address] [facility] [address], [place], [address] , [facility] 6 09:37:22 Essentia l hyperten dexter 31151571 Active 2013 Not Available [facility] 3 09:17:05 Essentia l hyperten dexter 04983103 Completed 201204/12/2014 IMPRESSI ON: WELL CONTROLL ED, CONTINUE CURRENT REGIMEN. LOW NA DIET, REGULAR XERCISE AND WT LOSS ADVISED. ; RECORDED 07/02/20 13 11:44AM BY JANET HUMPHRIES MA, KEVIN ON/EMIGDIO Britton MD [address], [place], [address] , [facility] 6 09:37:22 Knee pain Completed 201104/12/2014 RECORDED 08/14/20 12 1:42PM BY JANET HUMPHRIES MA, KEVIN ON/EMIGDIO Britton MD [address], [place], [address] , [facility] 6 09:37:22 Laborato ry procedur e performe d 025340588 Completed 201304/12/2014 RECORDED 12/01/19 14 10:42AM BY JANET HUMPHRIES MA, ANNOTATI ON/EMIGDIO Britton MD [address], [place], [address] , [facility] 6 09:37:22 Leukocyt osis 783777458 Completed 201304/12/2014 RECORDED 12/01/19 14 10:42AM BY JANET HUMPHRIES MA, ANNOTATI ON/EMIGDIO Britton MD [address], [place], [address] , [facility] 6 09:37:22 Screenin g for malignan t neoplasm of breast Completed 201304/12/2014 RECORDED 12/01/19 14 10:42AM BY JANET HUMPHRIES MA, ANNOTATI ON/ADDEN CHAPARRO Britton MD [address], [place], [address] , [facility] 6 09:37:22 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 Not Available [facility] 3 09:17:03 Derangem ent of meniscus 922945414 Active 2013 Not Available [facility] 3 09:17:03 Kidney stone 00043526 Active 2012 Shaker Not Available [facility] 3 09:17:05 Obesity 828777450 Completed 201301/11/2016 RECORDED 12/02/19 14 9:13AM BY JANET HUMPHRIES MA, OFFICE VISIT Dayana barney, [facility] 9 12:10:43 Obstruct pancho sleep apnea syndrome 48908708 Active 2013 CPAP 5-15 cm H2O, has been off of CPAP Not Available [facility] 3 09:17:05 Osteoart hritis of knee 193727019 Active 2013 S/P left TKR-KRUS HELL Not Available [facility] 3 09:17:03 Osteoart hritis of knee 215960170 Completed 201204/12/2014 IMPRESSI ON: SET FOR LEFT TKR [address] PADILLA .; RECORDED 08/13/20 13 10:44AM BY BONNIE WALKER MA, ANNOTATI ON/EMIGDIO Britton MD [address] [facility] [address], [place], [address] , [facility] 9 09:31:00 Disorder of bone and articula r cartilag e 383761881 Completed 201301/16/2017 IMPRESSI ON: ADEQUATE DIETARY CA/VIT D INTAKE ADVISED WELL REGULAR WEIGHT BEARING EXERCISE .; RECORDED 12/02/19 14 9:13AM BY JANET HUMPHRIES MA, OFFICE VISIT Poncho Britton MD [address] [facility] [address], [place], [address] , [facility] 7 09:04:38 Pre-surg hazel evaluati on Completed [...] WALKER MA, ANNOTATI ON/EMIGDIO Britton MD [address] [facility] [address], [place], [address] , [facility] 6 09:37:22 Gastroes ophageal reflux disease 039396491 Active 2013 Not Available [facility] 3 09:17:03 Administ ration of diphther ia and tetanus vaccine Completed 201304/12/2014 RECORDED 12/01/19 14 10:41AM BY JANET HUMPHRIES MA, ANNOTATI ON/EMIGDIO Britton MD [address] [facility] [address], [place], [address] , [facility] 6 09:37:22 Urinary tract infectio us disease 34272852 Completed 201304/12/2014 RECORDED 12/02/19 14 9:43AM BY PONCHO Mancilla MD, ANNOTATI ON/ADDEN DUM Poncho Britton MD [address] [facility] [address], [place], [address] , [facility] 9 09:29:27 Type 2 diabetes mellitus 11903559 Completed 01/11/2016 Poncho Britton MD [address] [facility] [address], [place], [address] , [facility] 6 09:37:22 Hypothyr oidism 32656770 Active Not Available [facility] 3 09:17:04 Body mass index 30+ - obesity 708598550 Completed 03/13/2020 Janet Humphries MA null, [facility] 0 08:32:02 Osteopen ia 060849290 Completed 02/05/2018 Poncoh Britton MD [address] [facility] [address], [place], [address] , [facility] 1 22:33:58 Liver enzymes outside referenc e range 859680721 Completed 02/05/2018 Poncho Britton MD [address] [facility] [address], [place], [address] , [facility] 8 09:00:56 Ventricu lar prematur e beats 07114089 Active 2014 noted on sleep study Not Available [facility] 3 09:17:03 Dry skin 95373559 Completed 01/11/2016 Poncho Britton MD [address] [facility] [address], [place], [address] , [facility] 6 09:37:22 Palpitat ions 84694023 Completed 01/11/2016 Poncho Britton MD [address], [place], [address] , [facility] 6 09:37:22 Dizzines s 299839388 Completed 01/11/2016 Poncho Britton MD [address], [place], [address] , [facility] 6 09:37:22 Bradycar amy 62206960 Completed 01/16/2017 Poncho Britton MD [address], [place], [address] , [facility] 7 09:05:02 Mitral valve regurgit ation 63722686 Active mod Not Available [facility] 3 09:17:05 Diastoli c dysfunct ion 5205196 Active 2014 Not Available [facility] 3 09:17:04 Low back pain 554857127 Completed 01/16/2017 Poncho Britton MD [address], [place], [address] , [facility] 7 09:04:48 Advance directiv hal ramsey d with patient 444506445 Completed 03/13/2020 Poncho Britton MD [address], [place], [address] , [facility] 0 08:55:10 Paronych ia of finger 097268183 Completed 201607/27/2018 thumb Poncho Britton MD [address], [place], [address] , [facility] 8 10:28:57 Cholecys titis 23958344 Completed 201602/05/2018 Removal Reason: s/p removal Poncho Britton MD [address], [place], [address] , [facility] 8 08:59:53 Obesity 231605995 Completed 201602/05/2018 Dayana barney, [facility] 9 12:10:43 Insomnia disorder related to known organic factor 26007084 Active 2017 Not Available [facility] 3 09:17:05 Osteoart hritis of joint of left hand 67945602128 9102 Active 2017 Not Available [facility] 3 09:17:04 Osteoart hritis 163924040 Active 2017 Not Available [facility] 3 09:17:04 Divertic ular disease 853884646 Active 2017 Not Available [facility] 3 09:17:04 Senile hyperker atosis 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 2017 Not Available [facility] 3 09:17:04 Calcinos is 5751227 Completed 201703/13/2020 Poncho Britton MD [address], [place], [address] , [facility] 0 08:58:00 Allergic rhinitis 08611961 Active 2018 Not Available [facility] 3 09:17:05 Urinary tract infectio us disease 12975775 Completed 201803/11/2019 Poncho Britton MD [address], [place], [address] , [facility] 9 09:29:27 Vulvovag inal disease 89411585 Completed 201803/11/2019 Poncho Britton MD [address], [place], [address] , [facility] 9 09:29:21 Pain in urethra 7645511 Completed 201803/11/2019 Poncho Britton MD [address], [place], [address] , [facility] 9 09:29:15 Atrophic vaginiti s 63170505 Active 2018 Not Available [facility] 3 09:17:05 Obesity 240105192 Active 2018 Not Available [facility] 3 09:17:04 Glaucoma suspect Completed 201805/21/2022 Poncho Britton MD [address], [place], [address] , [facility] 2 15:10:57 Esotropi a 10022393 Active 2018 Not Available [facility] 3 09:17:03 Dilatati on of aorta 59547708 Active 2019 3.7cm Not Available [facility] 3 09:17:04 Degenera tive joint disease of hand 22836803 Active 2019 Not Available [facility] 3 09:17:03 Nephroca lcinosis 09751309 Active 2019 Not Available [facility] 3 09:17:05 Internal hemorrho ids 79731447 Active 2019 Not Available [facility] 3 09:17:05 Ischemic colitis 41857070 Active 2019 Not Available [facility] 3 09:17:04 Suspecte d COVID-19 293774735 Completed 03/05/2021 Removal Reason: Problem added by user [email or web address] from the COVID-19 watch flag Rere barney, [facility] 1 10:52:02 Hypokale aurora 46531137 Completed 202001/06/2023 Poncho Britton MD [address], [place], [address] , [facility] 3 13:26:41 Total bilirubi n above referenc e range 01785890507 9108 Completed 202001/06/2023 Poncho Britton MD [address], [place], [address] , [facility] 3 13:27:24 Osteopen ia 357738167 Active 2020 Not Available [facility] 3 09:17:04 Osteoart hritis of right knee joint 35297657775 9100 Active 2020 end stage Not Available [facility] 3 09:17:04 Major depressi on single episode, in partial remissio n 92712096 Active 2021 Not Available [facility] 3 09:17:05 Open wound of toe of right foot 27848721523 441170 Completed 202105/21/2022 Poncho Britton MD [address] [facility] [address], [facility] [place], [address] , [facility] 2 15:11:24 Hyperten dexter monitori ng status 994583149 Active 2021 Accuheal th- enrolled Not Available [facility] 3 09:17:04 Coronary atherosc lerosis 783062380 Active 2021 Not Available [facility] 3 09:17:04 Calcific ation of coronary artery 585362974 Active 2021 mild LAD Not Available [facility] 3 09:17:04 Anxiety 61047923 Active 2021 Not Available [facility] 3 09:17:05 Arterios clerotic vascular disease 83555178 Active 2021 Not Available [facility] 3 09:17:05 Small vessel cerebrov ascular disease 047941003 Active 2021 Not Available [facility] 3 09:17:04 Multiple lacunar infarcts 112509928 Active 2021 Not Available [facility] 3 09:17:04 Periodic limb movement disorder 064093510 Active 2021 Not Available [facility] 3 09:17:04 Sensorin eural hearing loss of bilatera l ears 177268002 Active 01/02/ 2023 Not Available [facility] 3 09:17:03 Family history of malignan t melanoma 510071640 Active 2022 Not Available [facility] 3 09:17:04 Retrolis thesis 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 2022 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 Not Available [facility] 3 09:17:04 Sensorin eural hearing loss 83225469 Active 2023 bilatera l, right >left Poncho Britton MD [address], [place], [address] , [facility] 4 06:48:59 Constipa tion 88139701 Active 2023 Poncho Britton MD [address], [place], [address] , [facility] 4 21:29:26 Cerebrov ascular disease 52206146 Active 2023 Poncho Britton MD [address], [place], [address] , [facility] 4 06:58:34 Aneurysm of thoracic aorta 502138616 Active 2023 Poncho Britton MD [address], [place], [address] , [facility] 4 10:32:12 Incomple te right bundle branch block 427584661 Active 2024 Poncho Britton MD [address], [place], [address] , [facility] 5 13:16:28 Left anterior fascicul ar block 11293688 Active 2024 Poncho Britton MD [address], [place], [address] , [facility] 5 13:16:43 Acute sinusiti s 13933483 Completed 202401/08/2025 MAY MONROE MD [address] [address], [place], [address] , [facility] 08:38:39 Problem Notes None recorded. Procedures Surgical History Date Name Laterality Status Provider Name and Address Organization Details Recorded Time 025 injection of cortisone completed Evelia ramires MA [facility] 11/06/2024 11:20:15 024 Diabetic Foot Exam (Monofilament) completed Poncho Britton MD [address], [address], [facility] 06/07/2024 10:24:21 023 echocardiography completed Poncho Britton MD [address], [address], [facility] 11/03/2023 15:05:36 023 Diabetic Foot Exam (Monofilament) completed Poncho Britton MD [address], [address], [facility] 06/03/2023 14:50:55 022 prosthetic total arthroplasty of right shoulder completed Poncho Britton MD [address], [address], [facility] 01/06/2023 13:14:19 022 Diabetic Foot Exam (Monofilament) completed Janet Humphries MA [facility] 05/21/2022 14:17:34 022 incision of ingrown nail completed Poncho Britton MD [address], [address], [facility] 11/11/2021 11:22:13 022 radionuclide imaging of perfusion of myocardium under exercise stress completed Poncho Britton MD [address], [address], [facility] 11/28/2021 07:55:28 021 Most Recent Bone Density completed Olinda Miranda MA [facility] 06/07/2024 09:53:03 021 Advanced Care Planning completed Poncho Britton MD [address] [address], [place], [address], [facility] 03/15/2021 10:32:38 021 Diabetic Foot Exam (Monofilament) completed Poncho Britton MD [address] [address], [place], [address], [facility] 03/30/2021 10:17:29 020 colonoscopy completed Poncho Britton MD [address] [address], [place], [address], [facility] 07/31/2020 13:00:40 020 Mini-Cog Test completed Janet Humphries MA [facility] 03/13/2020 08:35:20 020 Diabetic Foot Exam (Monofilament) completed Janet Humphries MA [facility] 03/13/2020 08:35:05 020 Echo transthoracic completed Poncho Britton MD [address] [address], [place], [address], [facility] 11/02/2019 21:26:40 019 Dxa bone density pamela vrt fx completed Janet Humphries MA [facility] 03/13/2020 08:30:35 019 Most Recent Mammogram completed Taylor Lamar [facility] 03/23/2019 16:20:12 019 Mammogram Screening completed Taylor Lamar [facility] 03/23/2019 16:20:07 019 Mini-Cog Test completed Evelia ramires MA [facility] 03/11/2019 09:09:02 018 Mini-Cog Test completed Judith Schofield MA [facility] 02/05/2018 08:36:39 018 Diabetic Foot Exam (Monofilament) completed Poncho Britton MD [address], [place], [address], [facility] 02/08/2018 18:41:18 017 Cholecystectomy completed Samia Cuhna [facility] 08/15/2017 15:33:43 017 Fall Risk Assessment completed Janet Humphries MA [facility] 01/16/2017 08:37:00 017 Mini-Cog Test completed Janet Humphries MA [facility] 01/16/2017 08:37:56 016 Fall Risk Assessment completed Janet Humphries MA [facility] 01/11/2016 09:12:15 016 Mini-Cog Test completed Janet Humphries MA [facility] 01/11/2016 09:29:00 016 Advanced Care Planning completed Janet Humphries MA [facility] 01/11/2016 09:12:15 015 Date of Last Colonoscopy completed Janet Humphries MA [facility] 01/11/2016 09:12:14 015 Colonoscopy completed Janet Humphries MA [facility] 02/02/2015 10:44:15 015 Fall Risk Assessment completed Janet Humphries MA [facility] 10/13/2014 09:44:22 015 Mini-Cog Test completed Janet Humphries MA [facility] 10/13/2014 09:44:41 014 Cystoscopy and treatment completed Poncho Britton MD [address] [facility] [address], [place], [address], [facility] 08/17/2019 22:34:32 014 completed Janet Humphries MA [facility] 06/08/2014 09:05:45 013 Knee Surgery completed Poncho Britton MD [address] [facility] [address], [place], [address], [facility] [place] 10/13/2014 09:55:41 013 Joint Replacement completed Janet Humphries MA [facility] 05/21/2022 14:14:56 010 Date of Last Pap Smear completed Janet Humphries MA [facility] 01/16/2017 08:35:58 009 completed Janet Humphries MA [facility] 06/08/2014 09:05:45 988 Hysterectomy completed Poncho Britton MD [address] [facility] [address], [place], [address], [facility] 01/16/2017 09:10:48 973 Hemorrhoidectomy completed Janet Humphries MA [facility] 05/21/2022 14:14:56 957 Appendectomy completed Janet Humphries [facility] 05/21/2022 14:14:56 Carpal tunnel surgery completed Poncho Britton MD [address] [facility] [address] [facility], [place], [address], [facility] 01/16/2017 09:10:37 Hemorrhoidectomy completed Janet aviles MA [facility] 05/21/2022 14:14:56 Appendectomy completed Janet Humphries [facility] 05/21/2022 14:14:56 Imaging Results None recorded. Procedure Notes None recorded. Medical Equipment None Reported. Allergies Allergen ID Allergen Name Allergen Category Reaction Reaction Severity Criticality Documentation Date Start Date Code Code System Note Provider Name and Address Organization Details Recorded Time 14340 lamotrigi ne medicatio n dizziness moderate Not available 12/20/20242024 27474 RxNorm CURLY Powers MA - [facility] 5 11:38:57 Medications Name Sig Start Date Stop Date Status Note LastModified by Organization Details LastModified Time buspirone hcl 10 mg tabs active Not Available Not Available Not Available losartan potassium 50 mg tabs active Not Available Not Available Not Available indapamid e 1.25 mg tabs active Not Available Not Available Not Available levothyro xine sodium 25 mcg tabs active Not Available Not Available Not Available atorvasta tin calcium 40 mg tabs active Not Available Not Available Not Available cyclobenz aprine hcl 10 mg tabs active Not Available Not Available Not Available oxycodone /acetamin ophen 5-325 mg tabs active Not Available Not Available Not Available buspirone hcl 5 mg tabs active Not Available Not Available Not Available fluarix quadrival ent 6166-3180 .5 ml elise active Not Available Not [...] e 137 mcg (0.1 %) nasal spray Hesperus 2 sprays as needed by nasal route [...] e 50 mcg/actua tion nasal spray,josh pension Hesperus 2 sprays every day by intranas al [...] Available Not Available oxycodone 5 mg tablet 12/14 /2017 completed Not Available Not Available Not Available [...] 12 11:39AM BY JANET HUMPHRIES MA, ANNOTATI ON/ADDILIANA DUM; Not Available Not Available Not Available [...] Not Available No t Available Fluzone High-Dose 3356-2309 (PF) 180 mcg/0.5 mL intramusc ular syringe 07/24 completed Not Available Not Available Not Available Shingrix (PF) 50 mcg/0.5 mL intramusc ular suspensio n, kit 06/03 completed Not Available Not Available Not Available Fluad Quad 8019-2759 (65yr up)(PF) 60 mcg (15 mcg x 4)/0.5mL IM syringe PHARMACY ADMINIST ERENuzhat 06/13 completed Not Available Not Available Not [...] Updated DateTime 5 152.4 cm 29.3 kg/m2 03180.8 6 g 97 % 97 % 101 /min 97.8 [degF] 111 /min 98 % 98 % 93 mm[Hg] 64 mm[Hg] 81 mm[Hg] 50 mm[Hg] Judith Schofield MA [facility] 5 10:18:38 Social History Question Answer Notes LastModified by Organizat ion Details LastModified Time Tobacco Smoking Status Never Smoker Not Available [employer] 08/01/2020 03:36:42 Do You Have An Advance Directive? Yes HCP/ Son-Adrian Dtr-Almacristin iliana Information not available 06/07/2024 What Is Your Level Of Alcohol Consumption? Occasional [id number] Information not available 08/01/2020 Is Blood Transfusion Acceptable In An Emergency? Yes [id number] Information not available 08/01/2020 What Is Your Level Of Caffeine Consumption? Moderate 1-2 Cup Of Coffee Daily Information not available 06/03/2023 How Much Tobacco Do You Chew? None [id number] Information not available 08/01/2020 Are You Currently Employed? No Retired [id number] Information not available 08/01/2020 What Type Of Diet Are You Following? REGULAR Information not available 03/15/2021 Which Illicit Or Recreational Drugs Have You Used? None [id number] Information not available 08/01/2020 Do You Or Have You Ever Used E-cigarettes Or Vape? 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 Single Level Home Information not available 08/20/2022 Live Alone Or With Others? Alone In ( [place] ) Information not available 06/07/2024 Do You Take [...] Or Greater Than 100 Degrees Fahrenheit? Yes [email or web address] Information not available 06/30/2020 Are You Or [...] How Many Children Do You Have? 6 [id number] Information not available 08/01/2020 Difficulty Reading? No Information not available 08/20/2022 Do You Use Your Seat Belt Or Car Seat Routinely? Yes Information not available 05/21/2022 Seat Belts Used Routinely Yes Information not available 08/20/2022 Are You Sexually Active? No [id number] Information not available 08/01/2020 Smoke Alarm In Home Yes Information not available 08/20/2022 Do You Have Smoke And Carbon Monoxide Detectors In Your Home? Yes Information not available 05/21/2022 At What Age Did You Start Smoking Tobacco? 1 [id number] Information not available 08/01/2020 Are You Passively Exposed To Smoke? No Information not available 10/13/2014 Do You Or Have You Ever Used Smokeless Tobacco? Never Used Smokeless Tobacco [id number] Information not available 08/01/2020 How Much Tobacco Do You Smoke? No [id number] Information not available 08/01/2020 Do You Use Any Illicit Or Recreational Drugs? No Information not available 08/20/2022 Do You Use Sunscreen Routinely? No Information not available 05/21/2022 How Many Years Have You Smoked Tobacco? 0 [id number] Information not available 08/01/2020 Difficulty Watching TV? [...] to care for yourself? Yes with dementia [id number] Information not available 08/01/2020 Do you have [...] Not available 01/10 09:42:52 Mother Hypercholest erolemia liat Not available 01/10 09:42:52 Mother Old-age 103 Not available 14:35:31 Mother Cerebrovascu lar accident awychowski Not available 09:36:20 Maternal Grandmother Cerebrovascu lar accident [email or web address] Not available 13:54:27 Paternal Aunt Malignant tumor of breast awychowski Not available 01/10 09:42:52 Brother Hypercholest percyolemia julianoowski Not available 01/10 09:42:52 Brother Alcohol abuse [email or web address] Not available 05/21 13:54:27 Sister Hypercholest erolemia awpilyowski Not available 01/10 09:42:52 Sister Alcohol abuse awychowski Not available 01/16 09:07:30 Son Coronary arterioscler osis Not available 2021 14:35:31 Medical History Condition Response Coronary Artery Disease N Gout N Other Y Blood Diseases N Kidney Stones Y Hyperthyroidism N Breast Cancer N mrsa exposure N Depression N COPD N Lung Disease N Hypothyroidism N Defects or Inherited Disease N Developmental or Behavioral Disorders N Breast Problem N Anesthesia Complications N [...] Disease N Pulmonary Embolism N Hypertension Y Chicken Pox N Autism Spectrum Disorder (ASD) N Osteoporosis Y Gynecological History Statement/Question Response Date of Last Pap Smear 07/18/2010 Most Recent Mammogram 03/23/2019 10/06/2013 Date of Last Colonoscopy 12/16/2014 Most Recent Bone Density 04/30/2021 06/22/2009 Obstetrics History GPAL:G 0 P 0 0 0 0 Immunizations Vaccine Type Date Status Note Provider Nam e and Address Organization Details Recorded Time Influenza, high-dose, trivalent, PF 4 completed Edita Aguilera null, [facility] 09/17/2023 09:57:21 Influenza, high-dose, trivalent, PF 5 completed Olinda Miranda CURLY null, [facility] 11/03/2023 14:21:34 Influenza, high-dose, trivalent, PF 6 completed Edita Gallonett null, [facility] 09/17/2023 09:57:21 Influenza, high-dose, trivalent, PF 7 completed Edita Perri Aguilera null, [facility] 09/17/2023 09:57:21 Influenza, split virus, quadrivalent, preservative 8 completed Olinda Miranda CURLY null, [facility] 11/03/2023 14:21:34 Influenza, high-dose, trivalent, PF 9 completed Edita Aguilera null, [facility] 09/17/2023 09:57:21 zoster recombinant 9 completed Olinda Miranda CURLY savita, [facility] 11/03/2023 14:21:34 Influenza, split virus, quadrivalent, preservative 0 completed CURLY Powers, [facility] 11/03/2023 14:21:34 COVID-19, mRNA, LNP-S, PF, 100 mcg/0.5mL dose or 50 mcg/0.25mL dose 1 completed Edita L Aguilera null, [facility] 09/17/2023 09:57:21 COVID-19, mRNA, LNP-S, PF, 100 mcg/0.5mL dose or 50 mcg/0.25mL dose 1 completed Edita Perir Aguilera null, [facility] 09/17/2023 09:57:21 zoster recombinant 0 completed Janet Humphries MA null, [facility] 03/15/2021 10:16:16 Influenza, split virus, quadrivalent, preservative 1 completed Olinda Miranda MA null, [facility] 11/03/2023 14:21:34 Influenza, adjuvanted, quadrivalent, PF 0 completed Editajuan Aguilera null, [facility] 09/17/2023 09:57:21 zoster recombinant 9 completed Edita L Aguilera null, [facility] 09/17/2023 09:57:21 Influenza, high-dose, trivalent, PF 8 completed Edita L Aguilera null, [facility] 09/17/2023 09:57:21 Influenza, high-dose, quadrivalent, PF 1 completed Edita Aguilera null, [facility] 09/17/2023 09:57:21 Influenza, split virus, quadrivalent, PF 5 completed Edita L Aguilera null, [facility] 09/17/2023 09:57:21 COVID-19, mRNA, LNP-S, PF, 100 mcg/0.5mL dose or 50 mcg/0.25mL dose 2 completed Edita L Aguilera null, [facility] 09/17/2023 09:57:21 Pneumococcal conjugate PCV 13 5 completed Edita L Aguilera null, [facility] 09/17/2023 09:57:21 COVID-19, mRNA, LNP-S, bivalent, PF, 30 mcg/0.3 mL dose 2 completed Edita L Aguilera null, [facility] 09/17/2023 09:57:21 Influenza, high-dose, quadrivalent, PF 2 completed Edita Perri GalloAguilera null, [facility] 09/17/2023 09:57:21 zoster recombinant 3 completed CURLY Powers, [facility] 11/03/2023 14:21:34 Influenza, high-dose, quadrivalent, PF 3 completed Edita barney, [facility] 09/17/2023 09:57:21 RSV, recombinant, protein subunit RSVpreF, adjuvant reconstituted, 0.5 mL, PF 3 completed Olinda Miranda MA null, [facility] 11/03/2023 14:21:34 COVID-19, mRNA, LNP-S, PF, 50 mcg/0.5 mL 3 completed Edita barney, [facility] 09/17/2023 09:57:21 pneumococcal polysaccharide PPV23 8 completed Edita barney, [facility] 09/17/2023 09:57:21 zoster live 2 completed Edita barney, [facility] 09/17/2023 09:57:21 Influenza, split virus, trivalent, preservative 2 completed Edita barney, [facility] 09/17/2023 09:57:21 Influenza, split virus, trivalent, preservative 3 completed Edita barney, [facility] 09/17/2023 09:57:21 Tdap 3 completed Edita barney, [facility] 09/17/2023 09:57:21 Td (adult), 2 Lf tetanus toxoid, preservative free, adsorbed 3 completed Poncho Britton MD [address] [facility] [address], [place], [address], [facility] 06/18/2023 15:09:57 Influenza, high-dose, trivalent, PF 4 completed Poncho Britton MD [address] [facility] [address], [place], [address], [facility] 06/07/2024 10:30:07 Past Encounters Encounter ID Performer Location Encounter Start Date Encounter Closed Date Diagnosis/Indication Diagnosis SNOMED-CT Code Diagnosis ICD10 Code Diagnosis Note [id number] John Nesbitt PA-C Main Office [address] [place] [address] 12/15/2024 12:53:45 12/15/2024 14:37:56 Acute sinusitis 27177542 J01.90 recommend probiotics while on abx 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 Resume SSRI and see if fluoxetine is better tolerated and effective. Pt working on connecting with a therapist and is going to stopp following with Mil[facility] because of logistical issues. 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 Will continue buproprion as well for now. Essential hypertension 31605354 I10 Well controlled on diuretic with K supplement . Will confirm that level has normalized . Memory impairment 929629 006 R41.3 I suspect that this is related to the poorly controlled mood issues. Will defer further testing and monitor with resumption of SSRI therapy. [id number] Poncho Britton MD Main Office [address] [place] [address] 01/04/2025 10:45:02 01/06/2025 17:12:09 [id number] MAY MONROE MD Main Office [address] [place] [address] 01/08/2025 09:22:36 01/08/2025 10:37:37 Recurrent falls 478865817 R29.6 Do believe that the reasons for [...] NOTE: RICKY CALLED ANSWERING SERVICE AND TOLD PATIENT IS NOT ON [place] EVEN THOUGH [...] RTC in one week History of fall 17008732 9 Z91.81 - has been having several falls since December 2024- c/w home physical therapy- after completion of home physical therapy would strongly recommend balance PT with [facility] Transition from acute care to self-care [id number] 50668 Z76.89 - reviewed hospital course Hypothyroidism 34545085 E03.9 - currently unsure if patient is taking levothyrox ine- pt mentions she takes it but daughter did not read it to MD while on the phone- will check thyroid function Coronary atherosclerosis 637413981 I25.10 Tremor 27345610 R25.1 - see above Health Concerns Section Related Observation LastModified by Organization Detai ls LastModified Time None Recorded Concern Status LastModified by Organization Details LastModified Time None Recorded Payers Encounter Date Sequence Insurance Name Policy Number Policy Gonzales Covered Member ID Gonzales Member ID Guarantor Name 01/08/2025 1 MEDICARE B-[place]: [employer] Nataliia Amado [id number] Nataliia Amado 01/08/2025 2 [employer] [facility] [employer] (O) [id number] Nataliia Amado [id number] Nataliia Amado Notes Date Note Type Note Provider Name and Address Organization Details Recorded Time 01/08/2025 text/html Hospitalization Contact RecordReported bypatient.Follow UpHospital: [facility]; admit date: (Please enter in format 'MM/DD/YYYY') (01/02/25); date of discharge: (Please enter in format 'MM/DD/YYYY') (01/03/25); date of contact: (Please enter in format 'MM/DD/YYYY') (01/04/25)Notes:Medica re covered inpatient stay? yesMedicare RIKA with in 48 working hours? yesHigh Complexity code valid on or before:DecemberModerate Complexity code valid on or before:DecemberHCP on file? yesMOLST on file? noDischarge Summary available? yes01/04/2025- 1st attempt to contact pt, message left for pt to return call Pt presented to [facility] after a fall. Pt fell at [...] or has it scheduled. MAY MONROE MD [address] [address], [place], [address], [facility] 01/08/2025 15:45:02 OBGyn Episode No OBEpisode recorded.
--- OUTSIDE RECORDS SUMMARY | 2025-01-13 06:14 | XMS_ITS | Encounter Summary ---
Author Organization [facility] Address [address] [place] [address] Care Team Providers Care Tax Investigator Name Role Phone Poncho Wise MD Primary Care Provider [phone] Reason for Referral * Cardiac Stress Testing (Routine) - Authorized Specialty Diagnoses / Procedures Referred By Alycia taylor Referred To Contact Cardiology Diagnoses Pre-syncope Palpitations Procedures Cardiac event monitor UT EXTERNAL PATIENT ACTIVATED ECG DOWNLOAD W RESULTS & INTERP <= 30 DAYS UT EXTERNAL PAT AUTO ACTIVATED ECG INCLUDING TRANSMISSION UP TO 30 DAYS UT EXTERNAL MOBILE CV TELEMETRY W ECG RECORDING <=30D PHYSCIAN REV & INTERP UT EXTERNAL MOBILE CV TELEMETRY W ECG RECORDING TECH SUPPORT UP TO 30 DAYS UT ECG UP TO 30 DAYS RECORDING Libby Dudley NP [address] [place] [address] Phone: tel: fax: Referral ID Status Reason Start Date Expiration Date V isits Requested Visits Authorized [id number] Authorized 01/11/2025 01/11/2026 1 1 * Imaging (Routine) - Authorized Specialty Diagnoses / Procedures Referred By Alycia taylor Referred To Contact Diagnoses Pre-syncope Procedures Vascular US duplex carotid bilateral Libby Dudley NP [address] [place] [address] Phone: tel: fax: [facility] Referral ID Status Reason Start Date Expiration Date V isits Requested Visits Authorized [id number] Authorized 01/11/2025 01/11/2026 1 1 Encounter Details Date Type Department Care Team (Late st Contact Info) Description 01/11/2025 Telephone [facility] [address] [place] [id number] Libby Dudley NP [address] [place] [address] Social History Tobacco Use Types Packs/Day Years Used Date Smoking Tobacco: Never Smokeless Tobacco: Never Alcohol Use Standard Drinks/Week Comments Not Currently 0 (1 standard drink = 0.6 oz pur e alcohol) Comments Unknown Sex and Gender Information Value Date Recorded Sex Assigned at Not on file Legal Sex Female 7:39 PM EST Gender Identity Not on file Sexual Orientation Not on file documented as of this encounter Progress Notes * Libby Dudley NP - 01/11/2025 2:29 PM EDT Pt should be able to keep her apt for her echo and leave rehab with her family. There is a big process to get an echo after one tests positive for COVID at [facility] [place] [place] and she will be able to come to the office without isolation next week. No inpt echo, pls get the echo outpt. Same goes for her carotid I spoke with Adrian and updated him. Thank you * Steffany Yang - 01/11/2025 2:14 PM EDT I called and spoke with Nataliia, she is still inpt at [facility] [place] [place], said she may get an Echo done tonight, has been in isolation due to testing positive for covid last Friday. 48hr holter on 01/17 has been cancelled, should Echo (booked same day) be cancelled as well? Patient will hold off on scheduling carotid U/S, as she is not aware how long she will be in the hospital. FYI. * Libby Dudley NP - 01/11/2025 10:53 AM EDT Pls arrange Carotid ultrasound 30d ROCT Pls cancel 48h holter And then HFU with [facility] or [facility] s/p [facility], presyncope, fu testing in 6-8 weeks. Signing off today Thank you documented in this encounter Plan of Treatment Upcoming Encounters Date Type Department Care Team (Late st Contact Info) Description 07/13/2025 9:10 AM EDT Office Visit [facility] [address] [place] [address] Gracia Hernandez NP [address] [place] [address] [address] [place] [address] Scheduled Orders Name Type Priority Associated Diagnoses Order Schedule Vascular US duplex carotid bilateral Vascular Ultrasound Routine Pre-syncope 1 Occurrences starting 01/11/2025 until 01/11/2026 Cardiac event monitor Cardiac Services Routine Pre-syncope Palpitations 1 Occurrences starting 01/11/2025 until 01/11/2026 documented as of this encounter Visit Diagnoses Diagnosis Pre-syncope- Primary Syncope and collapse Palpitations documented in this encounter Care Teams Tax Investigator Relationship Specialty Start Date End Date Poncho Wise MD [address] [place], [place] PCP - General 05/24/15 documented as of this encounter
--- OUTSIDE RECORDS SUMMARY | 2025-01-13 06:14 | XMS_ITS | Clinical Summary ---
Author Organization [facility] Address [address] [place] [address] Phone Care Team Providers Care Art Gilder Name Role Phone Poncho Wise MD Primary Care Provider Allergies No known active allergies Medications indapamide (LOZOL) 1.25 mg tablet Take 1 tablet (1.25 mg total) by mouth 1 (one) time each day. Active famotidine (PEPCID) 20 mg tablet Take 1 tablet (20 mg total) by mouth 1 (one) time each day. Active atorvastatin (LIPITOR) 40 mg tablet Take 1 tablet (40 mg total) by mouth 1 (one) time each day. 11/09/2021 Active levothyroxine (SYNTHROID, LEVOTHROID) 25 mcg tablet Take 1 tablet (25 mcg total) by mouth 1 (one) time each day before breakfast. Active potassium chloride (MICRO-K) 10 mEq CR capsule Take 1 capsule (10 mEq total) by mouth 2 (two) times a day. Active albuterol HFA (PROAIR HFA ; PROVENTIL HFA ; VENTOLIN HFA) 90 mcg/actuation inhaler Inhale 2 puffs by mouth every 6 (six) hours if needed for wheezing. Active aspirin 81 mg EC tablet Take 1 tablet (81 mg total) by mouth 1 (one) time each day. Active buPROPion SR (WELLBUTRIN SR) 150 mg 12 hr tablet Take by mouth 2 (two) times a day. Do not crush, chew, or split. Active losartan (COZAAR) 25 mg tablet Take 1 tablet (25 mg total) by mouth 1 (one) time each day. Active meloxicam (MOBIC) 15 mg tablet Take 1 tablet (15 mg total) by mouth 1 (one) time each day. Active traZODone (DESYREL) 50 mg tablet Take 1 tablet (50 mg total) by mouth at bedtime. Active Active Problems Problem Noted Date Diagnosed Date HTN (hypertension) 12/14/2024 Assessment & Plan (12/14/2024 12:18 PM EDT): Blood pressures have significantly improved. Today 120/78. She will continue to monitor her blood pressures now that she is restarted on losartan and notify me of any consistently elevated readings. Orders: Transthoracic echocardiogram (TTE) complete with PRN contrast, bubble, strain, and 3D order panel; Future Palpitations 12/14/2024 Assessment & Plan (12/14/2024 12:18 PM EDT): The patient had been noticing elevated heart rates and feeling like her heart is racing as well as elevated heart rates at home/elevated blood pressure readings which prompted ER visit recently. Her symptoms have slowly improved since. Her heart rate today is 96 bpm. Will have her undergo 48-hour Holter monitor to further evaluate and rule out any arrhythmias as a cause of her symptoms. We discussed given her recent steroid injection, this may be contributing to her symptoms as well. Recent lab work showed normal TSH. Orders: ECG 12 lead Cardiac holter monitor (<= 48 hours); Future Transthoracic echocardiogram (TTE) complete with PRN contrast, bubble, strain, and 3D order panel; Future Nonrheumatic mitral valve regurgitation 12/15/19 Assessment & Plan (12/14/2024 12:18 PM EDT): The patient has a history of mitral valve regurgitation which was noted to be mild to moderate in severity on echocardiogram July 2023. Will update a new echocardiogram to reevaluate for progression. Orders: Transthoracic echocardiogram (TTE) complete with PRN contrast, bubble, strain, and 3D order panel; Future Resolved Problems Problem Noted Date Diagnosed Date Resolved Date Nonrheumatic mitral valve regurgitation 12/14/2024 12/14/2024 Encounters Date Type Department Care Team Description 01/11/2025 Telephone [facility] Cardiology [facility] [address] [place] [address] Daniel Mayo MD [id number] (ok to book); ROCT Enrollment (Enrolling patient for 30 day ROCT) 01/11/2025 Telephone [facility] [address] [place] [address] Libby Dudley NP 12/14/2024 11:10 AM EDT Office Visit [facility] [address] [address] [place] [address] Gracia Hernandez NP Hypertension, unspecified type (Primary Dx); Palpitations; Nonrheumatic mitral valve regurgitation; Mitral valve insufficiency, unspecified etiology 12/13/2024 Telephone [facility] [address] [place] [address] Daniel Mayo MD Hypertension from Last 3 Months Surgical History Surgery Date Site/Laterality Comments CHOLECYSTECTOMY 08/04/2017 PROCEDURE: GA LAPAROSCOPY SURG CHOLECYSTECTOMY CHOLECYSTECTOMY 08/04/2017 PROCEDURE: HISTORICAL CHOLECYSTECTOMY Medical History Medical History Date Comments Acute lower urinary tract infection DX:Acute lower urinary tract infection Hypokalemia DX:Hypokalemia Chest pain DX:Chest pain Nephrolithiasis DX:Nephrolithias is; COMMENT: frequent Anxiety DX:Anxiety Hypertension Hyperlipidemia Hypothyroidism Family History Medical History Relation Name Comments Diabetes Brother Mellitus, Type II Other: High Cholesterol Brother Heart attack Father Other: Heart Disease Father Melanoma Mother Other: High Cholesterol Mother Relation Name Status Comments Brother Father Mother Social History Tobacco Use Types Packs/Day Years Used Date Smoking Tobacco: Never Smokeless Tobacco: Never Alcohol Use Standard Drinks/Week Comments Not Currently 0 (1 standard drink = 0.6 oz pur e alcohol) Comments Unknown Sex and Gender Information Value Date Recorded Sex Assigned at Not on file Legal Sex Female 7:39 PM EST Gender Identity Not on file Sexual Orientation Not on file Obstetrics History Last Filed Vital Signs Vital Sign Reading Time Taken Comments Blood Pressure 120/78 12/14/2024 11:09 AM EDT Pulse 96 12/14/2024 11:09 AM EDT Temperature - - Respiratory Rate - - Oxygen Saturation 95% 12/14/2024 11:09 AM EDT Inhaled Oxygen Concentration - - Weight 69.4 kg (153 lb) 12/14/2024 11:09 AM EDT Height 152.4 cm (5') 12/14/2024 11:09 AM EDT Body Mass Index 29.88 12/14/2024 11:09 AM EDT Plan of Treatment Upcoming Encounters Date Type Department Care Team (Late st Contact Info) Description 07/13/2025 9:10 AM EDT Office Visit [facility] - [facility] [address] [place] [phone] Gracia Hernandez NP [address] [place] [address] [address] [place] [address] Health Maintenance Due Date Last Done Comments DTaP,Tdap,and Td Vaccines (1 - Tdap) 02/12/1960 Pneumococcal Vaccine: 50+ Years (1 of 1 - PCV) 1991 Zoster Vaccines (1 of 2) 1991 RSV Immunization Adult Patients (1 - 1-dose 75+ series) 02/12/2016 Cholesterol Screening (Lipid Panel) 08/31/2022 Depression Screening 08/31/2022 Falls Risk Assessment 08/31/2022 Medicare Annual Wellness Visit 08/31/2022 Osteoporosis Screening (Bone Density Screening) 08/31/2022 Social Influencers of Health Screening 08/31/2022 Hypertension/CHF/CAD Annual BMP Blood Test 09/08/2022 06/02/2021, 06/02/2021 COVID-19 Vaccine ( - 2023-2 5 season) 2024 Influenza Vaccine (Season Ended) 2025 HIB Vaccines Aged Out No longer eligi ble based on patient's age to complete this topic HPV Vaccines Aged Out No longer eligi ble based on patient's age to complete this topic Hepatitis A Vaccines Aged Out No long er eligible based on patient's age to complete this topic Hepatitis B Vaccines Aged Out No long er eligible based on patient's age to complete this topic IPV Vaccines Aged Out No longer eligi ble based on patient's age to complete this topic MMR Vaccines Aged Out No longer eligi ble based on patient's age to complete this topic Meningococcal ACWY Vaccine Aged Out N o longer eligible based on patient's age to complete this topic Meningococcal B Vaccine Aged Out No l onger eligible based on patient's age to complete this topic RSV Immunization Patients Under 20 months Aged Out No longer eligible b ased on patient's age to complete this topic Varicella Vaccines Aged Out No longer eligible based on patient's age to complete this topic Procedures Procedure Name Priority Date/Time Associated Diagnosis Comments ECG 12-LEAD Routine 12/14/2024 12:18 PM EDT Palpitations from Last 3 Months Results * ECG 12 lead (12/14/2024 12:18 PM EDT) Ventricular Rate ECG 96 BPM GEMUSE Atrial Rate 100 BPM GEMUSE P-R Interval 168 ms GEMUSE QRS Duration 94 ms GEMUSE Q-T Interval 364 ms GEMUSE QTc 459 ms GEMUSE P Wave [place] 57 degrees GEMUSE R [place] -65 degrees GEMUSE T [place] 12 degrees GEMUSE ECG Interpretation Normal sinus rhythm Low voltage QRS Incomplete right bundle branch block Left anterior fascicular block Possible Lateral infarct , age undetermined Abnormal ECG No previous ECGs available Confirmed by DANIEL MAYO ([id number]) on 12/15/2024 12:16:30 PM GEMUSE 12/14/2024 11:1 5 AM EDT 12/15/2024 12:16 PM EDT us Gracia Hernandez CLICKER OPERATOR ECG ORDERABLES Edited Resu lt - Final GEMUSE from Last 3 Months Insurance MEDICARE [facility] [address] [place] [address] Care Teams Art Gilder Relationship Specialty Start Date End Date Poncho Wise MD [address] [facility] [address] [place], [place] PCP - General 05/24/15
--- OUTSIDE RECORDS SUMMARY | 2025-01-13 06:14 | XMS_ITS | Encounter Summary ---
Author Organization [facility] Address [address] [place] [address] Care Team Providers Care Electrical Linesworker Name Role Phone Poncho Wise MD Primary Care Provider [phone] Reason for Visit * Reason Onset Date Comments Hypertension 12/13/2024 Encounter Details Date Type Department Care Team (Late st Contact Info) Description 12/13/2024 Telephone [facility] [address] [place] [address] [place] [address] Mohamud Fulton MD [address] [place] [address] [address] [place] [address] Hypertension Social History Tobacco Use Types Packs/Day Years [...] as of this encounter Progress Notes * Katharina Cadet RN - 12/13/2024 11:10 AM EDT I spoke to Nataliia and informed her of Dr. Colin's message. I scheduled her for a triage visit withEllyn Hernandez NP tomorrow, @ 11:10 AM. * Mohamud Fulton MD - 12/13/2024 10:57 AM EDT 1. Agree the patient should go to her appointment with her PCP today [facility] to review her symptoms and her medications. 2. Also, I think that she would benefit from a follow-up appointment in our office. Please schedulethe patient for a triage appointment with me or Ellyn Hernandez. * Katharina Cadet RN - 12/13/2024 10:23 AM EDT I spoke to Nataliia for 15 minutes. She woke up Friday morning with a headache and elevated blood pressure. I scanned in [place] [facility] [place]. Today, she reports feeling a little better, She is shaky and weak, but not as severe as over the weekend. She denies recurring headache. On Friday12/11/24, her BP was 157/103- no HR value relayed. On Friday morning- BP 127/90, HR 113 bpm, checked again in the morning -BP 139/94, HR 123 bpm (she felt very shaky, unsure how long her HR was elevated), evening BP 116/80, HR 105 bpm. Today- BP 137/94, HR 87 bpm. She denies chest pain, shortness of breath, presyncope, syncope, and recent illness. Pt reports lightheadedness with position change. Onset of intermittent occasional palpitations since Friday that she describes as skipped beats that she feels in her sternum and throat. She endorsed palpitations today earlier this morning, around 9ish. Educated her on when to return to the ER. We went over her medications. She checked her meds and doesn't believe she's taking Losartan 25 mg daily although it sounds, very familiar. Pt was last seen in office 08/2023 and has an appointmentscheduled for 07/13/25. She also has an appt with her PCP today at 3:30 PM. Would you like me to arrange a sooner visit? * Edita Wesley - 12/13/2024 9:26 AM EDT Patient called she was in [facility] emergency room on Friday, she states all her tests came back fine. She is still experiencing high diastolic pressure with feeling weak and shaky. She gave 137/94, and her diastolic number was around 120 on Friday12/10/24. Please give her a call back at [phone]. documented in this encounter Plan of Treatment Upcoming Encounters Date Type Department Care Team (Late st Contact Info) Description 07/13/2025 9:10 AM EDT Office Visit [facility] [address] [place] [address] Gracia Hernandez NP [address] [place] [address] [address] [place], [place] [id number] documented as of this encounter Visit Diagnoses Not on filedocumented in this encounter Historical Medications * This list may reflect changes made after this encounter. potassium chloride (MICRO-K) 10 mEq CR capsule Take 1 capsule (10 mEq total) by mouth 2 (two) times a day. levothyroxine (SYNTHROID, LEVOTHROID) 25 mcg tablet Take 1 tablet (25 mcg total) by mouth 1 (one) time each day before breakfast. atorvastatin (LIPITOR) 40 mg tablet Take 1 tablet (40 mg total) by mouth 1 (one) time each day. 11/09/2021 famotidine (PEPCID) 20 mg tablet Take 1 tablet (20 mg total) by mouth 1 (one) time each day. indapamide (LOZOL) 1.25 mg tablet Take 1 tablet (1.25 mg total) by mouth 1 (one) time each day. added in this encounter Care Teams Electrical Linesworker Relationship Specialty Start Date End Date Poncho Wise MD [address] [facility] [address] [place], [place] PCP - General 05/24/15 documented as of this encounter
--- OUTSIDE RECORDS SUMMARY | 2025-01-13 06:14 | XMS_ITS | Encounter Summary ---
Author Organization [facility] Address [address] [place] [address] Care Team Providers Care Manufacturing Cost Estimator Name Role Phone Poncho Wise MD Primary Care Provider [phone] Reason for Visit * Reason Onset Date Comments [id number] (ok to book) 01/11/2025 ROCT Enrollment 01/11/2025 Enrolling patien t for 30 day ROCT Encounter Details Date Type Department Care Team (Late st Contact Info) Description 01/11/2025 Telephone [facility]iology Associates [facility] [address] [place] [phone] Mohamud Fulton MD [address] [place] [address] [address] [place] [address] [id number] (ok to book); ROCT Enrollment (Enrolling patient for 30 day ROCT) Social History Tobacco Use Types Packs/Day Years [...] as of this encounter Progress Notes * Leo Grubbs MA - 01/12/2025 10:16 AM EDT 01/12/25- Enrolling patient for 30 day ROCT ordered by KARMEN Negro// Dx: Pre-syncope, palps Dx: I called and spoke to patient, she is aware [employer] [facility] [employer] will reach out to Adrian her son to confirm and schedule home delivery. * Dinah Velarde RN - 01/11/2025 2:09 PM EDT Pt will be enrolled for home delivery of 30 day ROCT monitor per Libby Dudley for Dr Colin. Per son, Adrian, pt is still in the hospital and will be going to rehab. He will find out when we should enroll and where to ship the monitor. * Liyah Guallpa - 01/11/2025 1:34 PM EDT Prior Auth Status: NO Auth Req per Medicare Insurance Referral: n/a CPT: 02797 - ROCT DX: R55, R00.2 Duration: 30 Days [place]: Cristi CEJA to BOOK documented in this encounter Plan of Treatment Upcoming Encounters Date Type Department Care Team (Late st Contact Info) Description 07/13/2025 9:10 AM EDT Office Visit [facility] [address] [place] [address] Gracia Hernandez NP [address] [place] [address] [address] [place] [address] documented as of this encounter Visit Diagnoses Not on filedocumented in this encounter Care Teams Manufacturing Cost Estimator Relationship Specialty Start Date End Date oPncho Wise MD [address] [place], [place] PCP - General 05/24/15 documented as of this encounter
[2025-01-13 06:40] LABS: Basophils Percent Auto 0.4 % (0-2); Eosinophils Absolute Auto 0.1 X10*3/uL (0.0-0.4); Eosinophils Percent Auto 1.3 % (0-4); Hemoglobin 13.1 g/dl (12.0-16.0); Imm Gran Abs Auto 0.04 X10*3/uL (0.00-0.03); Imm Gran Pct Auto 0.5 % (0.0-0.4); Lymphocytes Absolute Auto 2.5 X10*3/uL (1.2-4.9); Mean Corpuscular HGB Conc 34.5 g/dl (31.0-35.0); Mean Corpuscular Hemoglobin 32.9 pg (27.0-33.0); Mean Corpuscular Volume 95.5 fL (80.0-98.0); Monocytes Absolute Auto 0.7 X10*3/uL (0.1-1.2); Monocytes Percent Auto 7.8 % (2-11); Neutrophils Absolute Auto 5.1 x10*3/uL (2.0-8.3); Platelet Count 284 X10*3/uL (160-400); Red Blood Count 3.98 X10*6/uL (4.20-5.50); Red Cell Distribution Width 12.3 % (11.0-16.0); White Blood Count 8.5 X10*3/uL (4.8-10.8)
[2025-01-13 07:07] LABS: Alanine Aminotransferase 52 U/L (0-31); Albumin Level 3.4 g/dL (3.5-5.0); Anion Gap 12 (12-20); Aspartate Amino Transferase 37 U/L (5-31); Bilirubin Total 1.3 mg/dL (0.0-1.0); Blood Urea Nitrogen 8 mg/dL (9-16); Calcium 9.2 mg/dL (8.4-10.2); Carbon Dioxide 25 mmol/L (22-29); Chloride 108 mmol/L (96-108); Estimated Glomerular Filt Rate > 60; Glucose Random 109 mg/dL (60-115); Potassium 4.2 mmol/L (3.3-5.1); Sodium 141 mmol/L (135-145); Total Protein 5.6 g/dL (6.5-8.0)
[2025-01-13 08:20] LABS: Alkaline Phosphatase 53 U/L (39-117)
== END 2025-01-13 06:11 | disposition home or self-care (01) ==
LOC: HO.MMNH1L 06:10
PROVIDERS: Visit Provider Nurse Practitioner
DX: I10 Essential (primary) hypertension (principal); E03.9 Hypothyroidism, unspecified
CPT/HCPCS: 36415; 80053; 85025

== ENCOUNTER 2025-01-17 06:06 | Outpatient (REF) | payer MEDICARE, OTHER, SELFPAY ==
[2025-01-17 05:41] LABS: MANUAL DIFF FLAG NO
--- OUTSIDE RECORDS SUMMARY | 2025-01-17 06:18 | XMS_ITS | Encounter Summary ---
Author Organization [facility] Address [address] [place] [address] Care Team Providers Care Crib Clerk Name Role Phone Poncho Wise MD Primary Care Provider Reason for Referral * Cardiac Stress Testing (Routine) - Authorized Specialty Diagnoses / Procedures Referred By Alycia taylor Referred To Contact Cardiology Diagnoses Pre-syncope Palpitations Procedures Cardiac event monitor SC EXTERNAL PATIENT ACTIVATED ECG DOWNLOAD W RESULTS & INTERP <= 30 DAYS SC EXTERNAL PAT AUTO ACTIVATED ECG INCLUDING TRANSMISSION UP TO 30 DAYS SC EXTERNAL MOBILE CV TELEMETRY W ECG RECORDING <=30D PHYSCIAN REV & INTERP SC EXTERNAL MOBILE CV TELEMETRY W ECG RECORDING TECH SUPPORT UP TO 30 DAYS SC ECG UP TO 30 DAYS RECORDING Libby Dudley NP [address] [place] [address] Phone: tel: fax: Referral ID Status Reason Start Date Expiration Date V isits Requested Visits Authorized [id number] Authorized 01/11/2025 01/11/2026 1 1 * Imaging (Routine) - Authorized Specialty Diagnoses / Procedures Referred By Alycia taylor Referred To Contact Diagnoses Pre-syncope Procedures Vascular US duplex carotid bilateral Libby Dudley NP [address] [place] [address] Phone: tel: fax: [facility] Referral ID Status Reason Start Date Expiration Date V isits Requested Visits Authorized [id number] Authorized 01/11/2025 01/11/2026 1 1 Encounter Details Date Type Department Care Team (Late st Contact Info) Description 01/11/2025 Telephone [facility] - [address] [place] [address] Libby Dudley NP [address] [place] [address] Social History Tobacco Use Types Packs/Day Years [...] as of this encounter Progress Notes * Nguyen Kidd - 01/14/2025 11:44 AM EDT Spoke with the patient and scheduled for 03/08/25 with Moon Montalvo. * Libby Dudley NP - 01/11/2025 2:29 PM EDT Pt should be able to keep her apt for her echo and leave rehab with her family. There is a big process to get an echo after one tests positive for COVID at [facility] and she will be able to come to the office without isolation next week. No inpt echo, pls get the echo outpt. Same goes for her carotid I spoke with Adrian and updated him. Thank you * Steffany Yang - 01/11/2025 2:14 PM EDT I called and spoke with Nataliia, she is still inpt at [facility], said she may get an Echo done tonight, has been in isolation due to testing positive for covid last Friday. 48hr holter on 01/17 has been cancelled, should Echo (booked same day) be cancelled as well? Patient will hold off on scheduling carotid U/S, as she is not aware how long she will be in the hospital. FYI. * Libby Dduley NP - 01/11/2025 10:53 AM EDT Pls arrange Carotid ultrasound 30d ROCT Pls cancel 48h holter And then HFU with AOP or Ellyn s/p [facility], presyncope, fu testing in 6-8 weeks. Signing off today Thank you documented in this encounter Plan of Treatment Upcoming Encounters Date Type Department Care Team (Late st Contact Info) Description 01/21/2025 7:00 AM EDT Ancillary Procedure [facility] Cardiology [facility] [address] [place] [address] 01/24/2025 12:30 PM EDT Ancillary Procedure [facility] Cardiology [facility] - [address] [place] [address] 03/08/2025 9:40 AM EDT Office Visit [facility] [address] [place] [address] Moon Montalvo NP [address] [place] [address] [place] [address] 07/13/2025 9:10 AM EDT Office Visit [facility] Dr [address] [place] [address] Gracia Hernandez NP [address] [place] [address] [address] [place] [address] Scheduled Orders Name Type Priority Associated Diagnoses Order Schedule Vascular US duplex carotid bilateral Vascular Ultrasound Routine Pre-syncope 1 Occurrences starting 01/11/2025 until 01/11/2026 Cardiac event monitor Cardiac Services Routine Pre-syncope Palpitations 1 Occurrences starting 01/11/2025 until 01/11/2026 documented as of this encounter Visit Diagnoses Diagnosis Pre-syncope- Primary Syncope and collapse Palpitations documented in this encounter Care Teams Crib Clerk Relationship Specialty Start Date End Date Poncho Wise MD [address] PCP - General 05/24/15 documented as of this encounter
--- OUTSIDE RECORDS SUMMARY | 2025-01-17 06:18 | XMS_ITS | Clinical Summary ---
Author Organization [facility] Address [address] [place] [address] Care Team Providers Care Patient Care Technician Instructor Name Role Phone Poncho Wise MD Primary [...] topic Insurance MEDICARE PART A & B [facility] Care Teams Patient Care Technician Instructor Relationship Specialty Start Date End Date Poncho Wise MD [address] [address] PCP - General 12/03/21
--- OUTSIDE RECORDS SUMMARY | 2025-01-17 06:18 | XMS_ITS | Encounter Summary ---
Author Organization [facility] Address [address] [place] [address] Care Team Providers Care Turbo Generator Oiler Name Role Phone Poncho Wise MD Primary Care Provider [phone] Reason for Visit * Reason Onset Date Comments Hypertension 12/13/2024 Encounter Details Date Type Department Care Team (Late st Contact Info) Description 12/13/2024 Telephone [facility] [address] [place] [address] [place] [phone] Mohamud Fulton MD [address] [place] [address] [address] [place] [address] Hypertension Social History Tobacco Use Types Packs/Day [...] I scanned in the ER report from [facility] dated 12/10/24. Today, she reports feeling a [...] AM EDT Patient called she was in [facility] emergency room on Friday, she states all her tests came back fine. She is still experiencing high diastolic pressure with feeling weak and shaky. She gave 137/94, and her diastolic number was around 120 on Friday12/10/24. Please give her a call back at [phone]. documented in this encounter Plan of Treatment Upcoming Encounters Date Type Department Care Team (Late st Contact Info) Description 01/21/2025 7:00 AM EDT Ancillary Procedure [facility] - [address] [place] [address] 01/24/2025 12:30 PM EDT Ancillary Procedure [facility] - [address] [place] [address] 03/08/2025 9:40 AM EDT Office Visit [place] [address] [place] [address] Moon Montalvo NP [address] [place] [address] [place] [address] 07/13/2025 9:10 AM EDT Office Visit [place] [address] [place] [address] Gracia Hernandez NP [address] [place] [address] [address] [place] [address] documented as of this encounter Visit Diagnoses [...] day. added in this encounter Care Teams Turbo Generator Oiler Relationship Specialty Start Date End Date Poncho Wise MD [address] [place] [address] PCP - General 05/24/15 documented as of this encounter
--- OUTSIDE RECORDS SUMMARY | 2025-01-17 06:18 | XMS_ITS | Encounter Summary ---
Author Organization [facility] Address [address] [place] [address] Care Team Providers Care Employee Benefits Attorney Name Role Phone Poncho Wise MD Primary Care Provider [phone] Reason for Visit * Reason Onset Date Comments ECHOCARDIOGRAM 01/14/2025 Encounter Details Date Type Department Care Team (Late st Contact Info) Description 01/14/2025 Telephone [facility] [address] [place] [id number] Gracia Hernandez NP [address] [place] [address] [address] [place], [place] [id number] ECHOCARDIOGRAM Social History Tobacco Use Types Packs/Day Years [...] as of this encounter Progress Notes * Gracia Hernandez NP - 01/14/2025 9:11 AM EDT Echo rescheduled for 01/24/2025 * Peyton Ferrari - 01/14/2025 8:57 AM EDT My apologies, disregard that last message. Echo was already cancelled. * Peyton Ferrari - 01/14/2025 8:48 AM EDT Patient is scheduled for an upcoming echo at [facility] on 01/17/25. Patient tested positive for COVID on 01/09/25. Would you like to keep upcoming echo appt? documented in this encounter Plan of Treatment Upcoming Encounters Date Type Department Care Team (Late st Contact Info) Description 01/21/2025 7:00 AM EDT Ancillary Procedure [facility] [address] [place] [address] 01/24/2025 12:30 PM EDT Ancillary Procedure [facility] - [address] [place] [address] 03/08/2025 9:40 AM EDT Office Visit [facility] [address] [place] [phone] Moon Montalvo NP [address] [place] [address] [place] [address] 07/13/2025 9:10 AM EDT Office Visit [facility] [address] [place] [phone] Gracia Hernandez NP [address] [place] [address] [address] [place] [address] documented as of this encounter Visit Diagnoses Not on filedocumented in this encounter Care Teams Employee Benefits Attorney Relationship Specialty Start Date End Date Poncho Wise MD [address] [place], [place] PCP - General 05/24/15 documented as of this encounter
--- OUTSIDE RECORDS SUMMARY | 2025-01-17 06:18 | XMS_ITS | Data Portability ---
Author Organization [facility], Main Office Address [address] [place] [address] Care Team Providers Care Safety Deposit Boxes Custodian Name Role Phone PONCHO BRITTON Primary Care Provider ROBIN TSANG OTHER [phone] DREA VILA Explosives Handler ARLYN RODRIGUES Certified Novell Engineer DYLON MATTHEW Gynecological/Oncology [phone] [facility] Lease Administration Analyst [facility] Healthcare Social Worker ZACK MEADOWS Orthopedic Surgeon [phone] DENNIS RINALDI Medical Management Trainer DANIEL LYNCH Lease Administration Analyst [facility] Sleep [facility] ERA (RU BURGOS) Orthopedic Surgeon DIMA HELTON Urologist TYSON JEFFERY Solid Waste Truck Driver [phone] LUDY BUENROSTRO Veneer Marker JOSÉ ARGUELLES Movement Assembler Assessment No assessment recorded. Plan of Treatment [...] Go To The Location Of Their Choice, [address] 12/06/2024 11:03:17 Referral neurol ogist referr brando - pt is having recurr ent falls, memory defici ts and tremor s, referr ed to explor e moveme nt disord er 2024 025 [facility], [address] [facility], [address], [place], [address], 01/10/2025 15:24:07 Procedures None record ed. Surgeries None record ed. Imaging MRI, brain, w/o contra st - more falls, memory proble ms and tremor s 2024 025 [email or web address] Not available 01/10/2025 14:25:04 MRI, brain, w/o contra st - rule out mass/n ew CVA 2024 025 [email or web address] [facility] ([facility]), [address] [facility], [place], [address], 12/28/2024 09:53:52 Medication Orders fluoxe merline 20 mg capsul e 2024 025 [facility]acy #[id number], [address], [place], [address], 01/12/2025 11:37:42 valacy clovir 1 gram tablet 2024 025 [facility] #0517, [address], [place], [address], 12/20/2024 11:40:53 amoxic illin 875 mg-pot assium clavul anate 125 mg tablet 2024 025 [facility]/Pharmacy #0517, [address], [place], [address], 12/29/2024 05:01:39 albute rol sulfat e HFA 90 mcg/ac tuatio n aeroso l inhale r 2024 025 [facility]acy #0517, [address], [place], [address], 12/06/2024 11:03:09 atorva statin 80 mg tablet 2024 025 [facility] #0517, [address], [place], [address], 12/06/2024 11:08:23 indapa mide 1.25 mg tablet 2024 025 [facility] #0517, [address], [place], [address], 12/06/2024 11:03:09 Patient TargetsNo targets recorded. Patient Instructions Encounter Date Encounter Id Patient Instructions Last Modified By Organization Details Last Modified Time 12/06/2024 [id number] type 2 diabetes: care instructions awychowski Not available 12/06/2024 11:03:07 high blood pressure: care instructions awychowski Not available 12/06/2024 11:03:07 learning about high blood pressure awychowski Not available 12/06/2024 11:03:07 12/15/2024 [id number] Acute Sinusitis: Care Instructions pmadden Not available 12/15/2024 14:30:47 saline nasal washes: care instructions pmadden Not available 12/15/2024 14:30:47 eustachian tube problems: care instructions pmadden Not available 12/15/2024 14:30:47 Follow up if no improvement or if symptoms worsen. pmadden Not available 12/15/2024 14:32:04 12/20/2024 [id number] high blood pressure: care instructions awychowski Not available 12/20/2024 12:13:27 learning about high blood pressure awychowski Not available 12/20/2024 12:13:27 At [facility] follow up visit, all current and discharge medications (OTC, herbal therapies, supplements) reviewed and reconciled with patient and or caregiver, including potential side effects, drug interactions, instructions, and the consequences of not taking medication. Reviewed potential barriers to medication adherence, such as side effects from medication or cost of medication. lisa Not available 12/20/2024 11:37:53 01/04/2025 [id number] At [facility] follow up visit, all current and discharge medications (OTC, herbal therapies, supplements) reviewed and reconciled with patient and or caregiver, including potential side effects, drug interactions, instructions, and the consequences of not taking medication. Reviewed potential barriers to medication adherence, such as side effects from medication or cost of medication. delgers Not available 01/04/2025 10:45:34 01/08/2025 [id number] orthostatic vitals* [email or web address] Not available 01/15/2025 10:59:19 hypothyroidism: care instructions [email or web address] Not available 01/08/2025 [...] 70-99 above high normal Not Available [facility] ([facility]) [address] [place], [address], 12/21/2024 08:07:31 12/21/1912/21/2024 BASIC METAB OLIC PANEL (8) BUN 10 mg/dL 8-27 normal Not Available [facility] ([facility]) [address] [place], [address], 12/21/2024 08:07:31 12/21/1912/21/2024 BASIC METAB OLIC PANEL (8) creatinine 0.68 mg/dL 0.57-1 .00 normal Not Available [facility] ([facility]) [address] [place], [address], 12/21/2024 08:07:31 0312/21/2024 BASIC METAB OLIC PANEL (8) eGFR 86 mL/mi n/1.7 3 >59 normal Not Available [facility] ([facility]) [address] [place], [address], 12/21/2024 08:07:31 12/21/1912/21/2024 BASIC METAB OLIC PANEL (8) BUN/creatini ne ratio 15 12-28 normal Not Available [facility] ([facility]) [address] [place], [address], 12/21/2024 08:07:31 12/21/1912/21/2024 BASIC METAB OLIC PANEL (8) sodium 139 mmol/ L 134-14 4 normal Not Available [facility] ([facility]) [address] [place], [address], 12/21/2024 08:07:31 12/21/1912/21/2024 BASIC METAB OLIC PANEL (8) potassium 3.3 mmol/ L 3.5-5. 2 below low normal Not Available [facility] ([facility]) [address] [place], [address], 12/21/2024 08:07:31 12/21/1912/21/2024 BASIC METAB OLIC PANEL (8) chloride 98 mmol/ L 96-106 normal Not Available [facility] ([facility]) [address] [place], [address], 12/21/2024 08:07:31 12/21/1912/21/2024 BASIC METAB OLIC PANEL (8) carbon dioxide, total 23 mmol/ L 20-29 normal Not Available [facility] ([facility]) [address] [place], [address], 12/21/2024 08:07:31 12/21/1912/21/2024 BASIC METAB OLIC PANEL (8) calcium 9.6 mg/dL 8.7-10 .3 normal Not Available [facility] ([facility]) [address], [place], [address], 12/21/2024 08:07:31 12/16/19 25 ECG 12-le ad No observ ation record ed. [facility] [address] [facility], [place], [address], 12/20/2024 12:03:54 Result Notes None recorded. Problems Name Problem SNOMED Code Status Onset Date Resolution Date Notes Provider Name and Address Organization Details Recorded Time Thyroid function tests abnormal [id number] Completed 201204/12/2014 IMPRESSI ON: MILD SBNORMAL ITY, WILL REASSESS IN 4-6 WEEKS.; RECORDED 02/09/20 13 10:23AM BY JANET HUMPHRIES MA, ANNOTATI ON/EMIGDIO Britton MD [address], [place], [address] , [facility] 6 09:37:22 Allergic rhinitis 23760007 Completed 201204/12/2014 RECORDED 02/09/20 13 10:23AM BY JANET HUMPHRIES MA, KEVIN ON/EMIGDIO Britton MD [address], [place], [address] , [facility] 9 08:00:33 Arthropa thy 496423670 Completed 201302/05/2018 Poncho Britton MD [address], [place], [address] , [facility] 8 09:02:10 Patient status finding [id number] Completed 201204/12/2014 RECORDED 02/09/20 13 10:23AM BY JANET HUMPHRIES MA, ABDULKADIRATI ON/ADDTRISTAN DUM Poncho Britton MD [address] [facility] [address], [place], [address] , [facility] 6 09:37:22 Asthma 588331894 Active 2013 Not Available [facility] 3 09:17:03 Cough 43604033 Completed 201204/12/2014 IMPRESSI ON: STORY AND QUALITY OF COUGH RAISES POSSIBLE CONCERN FOR PERTUSSI S. WILL DEFER CONFIRMA TORY TESTING AND TREAT EMPIRICA LLY. IF PERSISTA NT/WORSE WILL NEED FURTHER EVAL. ALSO PROVIDE SYMPTROM ATIC RX TO HELP AT NIGHT.; RECORDED 02/09/20 13 10:23AM BY JANET HUMPHRIES MA, KEVIN BLACK/EMIGDIO Britton MD [address], [place], [address] , [facility] 6 09:37:22 History of depressi on 697024845 Completed 201304/12/2014 RECORDED 12/01/19 14 10:42AM BY JANET HUMPHRIES MA, KEVIN BLACK/EMIGDIO Britton MD [address], [place], [address] , [facility] 6 09:37:22 Type 2 diabetes mellitus without complica tion 000685563 Active 2013 Not Available [facility] 3 09:17:04 Diabetes mellitus 85708323 Completed 201304/12/2014 RECORDED 12/01/19 14 10:42AM BY JANET HUMPHRIES MA, ANNOTATI ON/EMIGDIO Britton MD [address], [place], [address] , [facility] 6 09:37:22 Type 2 diabetes mellitus without complica tion 021699363 Completed 201204/12/2014 IMPRESSI ON: WELL CONTROLL ED, A1C AT GOAL. OPTHO EXAM UTD. CONTINUE CURRENT REGIMEN. ; RECORDED 07/02/20 13 11:44AM BY JANET HUMPHRIES MA, KEVIN BLACK/EMIGDIO Britton MD [address] [facility] [address], [place], [address] , [facility] 8 09:02:07 Dysuria 49057317 Completed 201104/12/2014 RECORDED 08/14/20 12 1:42PM BY JANET HUMPHRIES MA, KEVIN ON/TUNGEN CHAPARRO Britton MD [address] [facility] [address], [place], [address] , [facility] 6 09:37:22 Follow-u p encounte r Completed 201304/12/2014 RECORDED 12/01/19 14 10:41AM BY JANET HUMPHRIES MA, KEVIN ON/EMIGDIO Britton MD [address] [facility] [address], [place], [address] , [facility] 6 09:37:22 Influenz a vaccine needed [id number] 06 Completed 201104/12/2014 RECORDED 08/07/20 12 1:48PM BY JANET HUMPHRIES MA, OFFICE VISIT Poncho Britton MD [address] [facility] [address], [place], [address] , [facility] 6 09:37:22 Gastroes ophageal reflux disease 665748878 Completed 201304/12/2014 RECORDED 12/01/19 14 10:42AM BY JANET HUMPHRIES MA, KEVIN ON/EMIGDIO Britton MD [address] [facility] [address], [place], [address] , [facility] 7 09:04:21 Adult health examinat ion Completed 201204/12/2014 IMPRESSI ON: WILL UPDATE IMMUNIZA TION STATUS AND SCREEN BASED ON RISK FACTORS. REGULAR DENTAL CARE AND SEATBELT USE ADVISED. DISTRACT ED DRIVING DISCUSSE D. PAP/MAMM OPGRAM/O PHTO EXAM AND COLONOSC OPY UTD.; RECORDED 02/09/20 13 10:23AM BY JANET HUMPHRIES MA, KEVIN ON/EMIGDIO Britton MD [address], [place], [address] , [facility] 6 09:37:22 Pure hypercho lesterol emia 537404713 Active 2013 Not Available [facility] 3 09:17:04 Hypercho lesterol emia 48147687 Completed 201304/12/2014 RECORDED 12/01/19 14 10:42AM BY JANET HUMPHRIES MA, KEVIN ON/EMIGDIO Britton MD [address], [place], [address] , [facility] 6 09:37:22 Essentia l hyperten dexter 44145360 Active 2013 Not Available [facility] 3 09:17:05 Essentia l hyperten dexter 44296927 Completed 201204/12/2014 IMPRESSI ON: WELL CONTROLL ED, CONTINUE CURRENT REGIMEN. LOW NA DIET, REGULAR XERCISE AND WT LOSS ADVISED. ; RECORDED 07/02/20 13 11:44AM BY JANET HUMPHRIES MA, KEVIN ON/EMIGDIO Britton MD [address] [facility] [address], [place], [address] , [facility] 6 09:37:22 Knee pain Completed 201104/12/2014 RECORDED 08/14/20 12 1:42PM BY JANET HUMPHRIES MA, ANNOTATI ON/EMIGDIO Britton MD [address], [place], [address] , [facility] 6 09:37:22 Laborato ry procedur e performe d 815228974 Completed 201304/12/2014 RECORDED 12/01/19 14 10:42AM BY JANET HUMPHRIES MA, KEVIN ON/EMIGDIO Britton MD [address] [facility] [address], [place], [address] , [facility] 6 09:37:22 Leukocyt osis 468834542 Completed 201304/12/2014 RECORDED 12/01/19 14 10:42AM BY JAENT HUMPHRIES MA, ANNOTATI ON/EMIGDIO Britton MD [address], [place], [address] , [facility] 6 09:37:22 Screenin g for malignan t neoplasm of breast Completed 201304/12/2014 RECORDED 12/01/19 14 10:42AM BY JANET HUMPHRIES MA, ANNOTATI ON/EMIGDIO Britton MD [address], [place], [address] , [facility] 6 09:37:22 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 Not Available [facility] 3 09:17:03 Derangem ent of [facility] 018457690 Active 2013 Not Available [facility] 3 09:17:03 Kidney stone 94559528 Active 2012 Shaker Not Available [facility] 3 09:17:05 Obesity 546698866 Completed 201301/11/2016 RECORDED 12/02/19 14 9:13AM BY JANET HUMPHRIES MA, OFFICE VISIT [facility] 9 12:10:43 Obstruct pancho sleep apnea syndrome 01125638 Active 2013 CPAP 5-15 cm H2O, has been off of CPAP Not Available [facility] 3 09:17:05 Osteoart hritis of knee 476849529 Active 2013 S/P left TKR-KRUS HELL Not Available [facility] 3 09:17:03 Osteoart hritis of knee 990891305 Completed 201204/12/2014 IMPRESSI ON: SET FOR LEFT TKR [address] PADILLA .; RECORDED 08/13/20 13 10:44AM BY BONNIE WALKER MA, ANNOTATI ON/EMIGDIO Britton MD [address] [facility] [address], [place], [address] , [facility] 9 09:31:00 Disorder of bone and articula r cartilag e 450680339 Completed 201301/16/2017 IMPRESSI ON: ADEQUATE DIETARY CA/VIT D INTAKE ADVISED WELL REGULAR WEIGHT BEARING EXERCISE .; RECORDED 12/02/19 14 9:13AM BY JANET HUMPHRIES MA, OFFICE VISIT Poncho Britton MD [address] [facility] [address], [place], [address] , [facility] 7 09:04:38 Pre-surg hazel evaluati on Completed [...] WALKER MA, ANNOTATI ON/EMIGDIO Britton MD [address] [facility] [address], [place], [address] , [facility] 6 09:37:22 Gastroes ophageal reflux disease 794230635 Active 2013 Not Available [facility] 3 09:17:03 Administ ration of diphther ia and tetanus vaccine Completed 201304/12/2014 RECORDED 12/01/19 14 10:41AM BY JANET HUMPHRIES MA, ANNOTATI ON/EMIGDIO Britton MD [address] [facility] [address], [place], [address] , [facility] 6 09:37:22 Urinary tract infectio us disease 65423889 Completed 201304/12/2014 RECORDED 12/02/19 14 9:43AM BY PONCHO Mancilla MD, ANNOTATI ON/ADDEN DUM Poncho Britton MD [address], [place], [address] , [facility] 9 09:29:27 Type 2 diabetes mellitus 60560549 Completed 01/11/2016 Poncho Britton MD [address], [place], [address] , [facility] 6 09:37:22 Hypothyr oidism 52243418 Active Not Available [facility] 3 09:17:04 Body mass index 30+ - obesity 731913278 Completed 03/13/2020 Janet Humphries MA null, [facility] 0 08:32:02 Osteopen ia 900895161 Completed 02/05/2018 Poncho Britton MD [address], [place], [address] , [facility] 1 22:33:58 Liver enzymes outside referenc e range 144235048 Completed 02/05/2018 Poncho Britton MD [address], [place], [address] , [facility] 8 09:00:56 Ventricu lar prematur e beats 48991895 Active 2014 noted on sleep study Not Available [facility] 3 09:17:03 Dry skin 60452259 Completed 01/11/2016 Poncho Britton MD [address], [place], [address] , [facility] 6 09:37:22 Palpitat ions 69871325 Completed 01/11/2016 Poncho Britton MD [address], [place], [address] , [facility] 6 09:37:22 Dizzines s 723159356 Completed 01/11/2016 Poncho Britton MD [address], [place], [address] , [facility] 6 09:37:22 Bradycar amy 58406013 Completed 01/16/2017 Poncho Britton MD [address], [place], [address] , [facility] 7 09:05:02 Mitral valve regurgit ation 00451010 Active mod Not Available [facility] 3 09:17:05 Diastoli c dysfunct ion 3843181 Active 2014 Not Available [facility] 3 09:17:04 Low back pain 362899034 Completed 01/16/2017 Poncho Britton MD [address] [facility] [address], [place], [address] , [facility] 7 09:04:48 Advance directiv farooq ramsey d with patient 745375233 Completed 03/13/2020 Poncho Britton MD [address], [place], [address] , [facility] 0 08:55:10 Paronych ia of finger 188751296 Completed 201607/27/2018 thumb Poncho Britton MD [address], [place], [address] , [facility] 8 10:28:57 Cholecys titis 44692509 Completed 201602/05/2018 Removal Reason: s/p removal Poncho Britton MD [address], [place], [address] , [facility] 8 08:59:53 Obesity 543929300 Completed 201602/05/2018 Dayana barney, [facility] 9 12:10:43 Insomnia disorder related to known organic factor 42326547 Active 2017 Not Available [facility] 3 09:17:05 Osteoart hritis of joint of left hand 31949715364 9102 Active 2017 Not Available [facility] 3 09:17:04 Osteoart hritis 644318830 Active 2017 Not Available [facility] 3 09:17:04 Divertic ular disease 835819632 Active 2017 Not Available [facility] 3 09:17:04 Senile hyperker atosis 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 2017 Not Available [facility] 3 09:17:04 Calcinos is 3827177 Completed 201703/13/2020 Poncho Britton MD [address] [facility] [address], [place], [address] , [facility] 0 08:58:00 Allergic rhinitis 11127307 Active 2018 Not Available [facility] 3 09:17:05 Urinary tract infectio us disease 28416087 Completed 201803/11/2019 Poncho Britton MD [address] [facility] [address], [place], [address] , [facility] 9 09:29:27 Vulvovag inal disease 95873996 Completed 201803/11/2019 Poncho Britton MD [address] [facility] [address], [place], [address] , [facility] 9 09:29:21 Pain in urethra 3591362 Completed 201803/11/2019 Poncho Britton MD [address] [facility] [address], [place], [address] , [facility] 9 09:29:15 Atrophic vaginiti s 02802896 Active 2018 Not Available [facility] 3 09:17:05 Obesity 361552322 Active 2018 Not Available [facility] 3 09:17:04 Glaucoma suspect Completed 201805/21/2022 Poncho Britton MD [address], [place], [address] , [facility] 2 15:10:57 Esotropi a 85121558 Active 2018 Not Available [facility] 3 09:17:03 Dilatati on of aorta 80850332 Active 2019 3.7cm Not Available [facility] 3 09:17:04 Degenera tive joint disease of hand 17766358 Active 2019 Not Available [facility] 3 09:17:03 Nephroca lcinosis 08842901 Active 2019 Not Available [facility] 3 09:17:05 Internal hemorrho ids 66485054 Active 2019 Not Available [facility] 3 09:17:05 Ischemic colitis 22790594 Active 2019 Not Available [facility] 3 09:17:04 Suspecte d COVID-19 743574136 Completed 03/05/2021 Removal Reason: Problem added by user [email or web address] from the COVID-19 watch flag Rere barney, [facility] 1 10:52:02 Hypokale aurora 61382813 Completed 202001/06/2023 Poncho Britton MD [address], [place], [address] , [facility] 3 13:26:41 Total bilirubi n above referenc e range 71025970711 9108 Completed 202001/06/2023 Poncho Britton MD [address], [place], [address] , [facility] 3 13:27:24 Osteopen ia 402065250 Active 2020 Not Available [facility] 3 09:17:04 Osteoart hritis of right knee joint 68732930539 9100 Active 2020 end stage Not Available [facility] 3 09:17:04 Major depressi on single episode, in partial remissio n 02427030 Active 2021 Not Available [facility] 3 09:17:05 Open wound of toe of right foot 40688710663 986651 Completed 202105/21/2022 Poncho Britton MD [address], [facility] [place], [address] , [facility] 2 15:11:24 Hyperten dexter monitori ng status 468504219 Active 2021 Accuheal th- enrolled Not Available [facility] 3 09:17:04 Coronary atherosc lerosis 764038132 Active 2021 Not Available [facility] 3 09:17:04 Calcific ation of coronary artery 706191417 Active 2021 mild LAD Not Available [facility] 3 09:17:04 Anxiety 00539304 Active 2021 Not Available [facility] 3 09:17:05 Arterios clerotic vascular disease 87732523 Active 2021 Not Available [facility] 3 09:17:05 Small vessel cerebrov ascular disease 665268783 Active 2021 Not Available [facility] 3 09:17:04 Multiple lacunar infarcts 981962549 Active 2021 Not Available [facility] 3 09:17:04 Periodic limb movement disorder 730070195 Active 2021 Not Available [facility] 3 09:17:04 Sensorin eural hearing loss of bilatera l ears 988076063 Active 2022 Not Available [facility] 3 09:17:03 Family history of malignan t melanoma 686836904 Active 2022 Not Available [facility] 3 09:17:04 Retrolis thesis 058980083 Active 2022 C5/C6 Not Available [facility] 3 09:17:04 Sensorin eural hearing loss 14709941 Active 2023 bilatera l, right >left Poncho Britton MD [address] [facility] [address], [place], [address] , [facility] 4 06:48:59 Constipa tion 32054098 Active 2023 Poncho Britton MD [address] [facility] [address], [place], [address] , [facility] 4 21:29:26 Cerebrov ascular disease 70352816 Active 2023 Poncho Britton MD [address], [place], [address] , [facility] 4 06:58:34 Aneurysm of thoracic aorta 057044085 Active 2023 Poncho Britton MD [address] [facility] [address], [place], [address] , [facility] 4 10:32:12 Incomple te right bundle branch block 786908171 Active 2024 Poncho Britton MD [address], [place], [address] , [facility] 5 13:16:28 Left anterior fascicul ar block 83111145 Active 2024 Poncho Britton MD [address] [facility] [address], [place], [address] , [facility] 5 13:16:43 Acute sinusiti s 13681193 Completed 202401/08/2025 MAY MONROE MD [address] [address], [place], [address] , [facility] 08:38:39 Problem Notes None recorded. Procedures Surgical History Date Name Laterality Status Provider Name and Address Organization Details Recorded Time 025 injection of cortisone completed Evelia ramires MA [facility] 11/06/2024 11:20:15 024 Diabetic Foot Exam (Monofilament) completed Poncho Britton MD [address], [address], [facility] 06/07/2024 10:24:21 023 echocardiography completed Poncho Britton MD [address], [address], [facility] 11/03/2023 15:05:36 023 Diabetic Foot Exam (Monofilament) completed Poncho Britton MD [address], [address], [facility] 06/03/2023 14:50:55 022 prosthetic total arthroplasty of right shoulder completed Poncho Britton MD [address], [address], [facility] 01/06/2023 13:14:19 022 Diabetic Foot Exam (Monofilament) completed Janet Humphries MA [facility] 05/21/2022 14:17:34 022 incision of ingrown nail completed Poncho Britton MD [address], [address], [facility] 11/11/2021 11:22:13 022 radionuclide imaging of perfusion of myocardium under exercise stress completed Poncho Britton MD [address], [address], [facility] 11/28/2021 07:55:28 021 Most Recent Bone Density completed Olinda Miranda MA [facility] 06/07/2024 09:53:03 021 Advanced Care Planning completed Poncho Britton MD [address] [facility] [address] [facility], [place], [address], [facility] 03/15/2021 10:32:38 021 Diabetic Foot Exam (Monofilament) completed Poncho Britton MD [address] [facility] [address] [facility], [place], [address], [facility] 03/30/2021 10:17:29 020 colonoscopy completed Poncho Britton MD [address] [address], [place], [address], [facility] 07/31/2020 13:00:40 020 Mini-Cog Test completed Janet Humphries MA [facility] 03/13/2020 08:35:20 020 Diabetic Foot Exam (Monofilament) completed Janet Humphries MA [facility] 03/13/2020 08:35:05 020 Echo transthoracic completed Poncho Britton MD [address] [address], [place], [address], [facility] 11/02/2019 21:26:40 019 Dxa bone density pamela [...] Exam (Monofilament) completed Poncho Britton MD [address] [facility] [address] [facility], [place], [address], [facility] 02/08/2018 18:41:18 017 Cholecystectomy completed Samia Cunha [...] Poncho Britton MD [address], [place], [address], [facility] 08/17/2019 22:34:32 014 completed Janet Humphries MA [facility] 06/08/2014 09:05:45 013 Knee Surgery completed Poncho Britton MD [address], [place], [address], [facility] 10/13/2014 09:55:41 013 Joint Replacement completed Janet Humphries MA [facility] 05/21/2022 14:14:56 010 Date of Last Pap Smear completed Janet Humphries MA [facility] 01/16/2017 08:35:58 009 completed Janet Humphries MA [facility] 06/08/2014 09:05:45 988 Hysterectomy completed Poncho Britton MD [address], [place], [address], [facility] 01/16/2017 09:10:48 973 Hemorrhoidectomy completed Janet Humphries MA [facility] 05/21/2022 14:14:56 957 Appendectomy completed Janet Humphries MA [facility] 05/21/2022 14:14:56 Carpal tunnel surgery completed Poncho Britton MD [address], [place], [address], [facility] 01/16/2017 09:10:37 Hemorrhoidectomy completed Janet aviles MA [facility] 05/21/2022 14:14:56 Appendectomy completed Janet Humphries MA [facility] 05/21/2022 14:14:56 Imaging Results Imaging Date Name Status LastModified by Organiz ation Details LastModified Time 12/15/2024 ECG 12-lead completed [address], [address], 12/20/2024 12:03:54 Procedure Notes None recorded. Medical Equipment None Reported. Allergies Allergen ID Allergen Name Allergen Category Reaction Reaction Severity Criticality Documentation Date Start Date Code Code System Note Provider Name and Address Organization Details Recorded Time 68629 lamotrigi ne medicatio n dizziness moderate Not available 12/20/20242024 00103 RxNorm CURLY Powers [facility] 11:38:57 Medications Name Sig Start Date Stop [...] Not Available Not Available fluarix quadrival ent 6050-5951 .5 ml elise active Not Available Not [...] e 137 mcg (0.1 %) nasal spray [place] 2 sprays as needed by nasal route [...] e 50 mcg/actua tion nasal spray,josh pension [place] 2 sprays every day by intranas al [...] Not Available No t Available Fluzone High-Dose 0262-2477 (PF) 180 mcg/0.5 mL intramusc ular syringe [...] Updated DateTime 5 152.4 cm 30.3 kg/m2 83179.8 2 g 98 /min 98 % 98 % 97.9 [degF] 146 mm[Hg] 79 mm[Hg] Olinda Virgilio [facility] 5 10:36:25 Date Recorded Body height Body mass index (BMI) Body weight Oxygen saturation Oxygen saturation in Arterial blood by Pulse oximetry Heart rate Body temperature Systolic blood pressure Diastolic blood pressure Provider Name and Address Organization Details Last Updated DateTime 5 152.4 cm 31 kg/m2 91777.3 9 g 97 % 97 % 91 [...] Updated DateTime 5 152.4 cm 29.9 kg/m2 14142.6 3 g 98 /min 96 % 96 % 98 [degF] 116 mm[Hg] 76 mm[Hg] Olinda [facility] 5 12:47:04 Date Recorded Body height Body [...] Updated DateTime 5 152.4 cm 29.3 kg/m2 41325.8 6 g 97 % 97 % 101 /min 97.8 [degF] 111 /min 98 % 98 % 93 mm[Hg] 64 mm[Hg] 81 mm[Hg] 50 mm[Hg] Judith Schofield MA [facility] 5 10:18:38 Social History Question Answer Notes LastModified by Organizat ion Details LastModified Time Tobacco Smoking Status Never Smoker Not Available [employer] 08/01/2020 03:36:42 Do You Have An Advance Directive? Yes HCP/ Son-Adrian, Dtr-Kamini en Information not available 06/07/2024 What Is Your Level Of Alcohol Consumption? Occasional [id number] Information not available 08/01/2020 Is Blood Transfusion Acceptable In An Emergency? Yes [id number] Information not available 08/01/2020 What Is Your Level Of Caffeine Consumption? Moderate 1-2 Cup Of Coffee Daily Information not available 06/03/2023 How Much Tobacco Do You Chew? None [id number] Information not available 08/01/2020 Are You Currently Employed? No Retired [id number] Information not available 08/01/2020 What Type Of Diet Are You Following? REGULAR Information not available 03/15/2021 Which Illicit Or Recreational Drugs Have You Used? None [id number] Information not available 08/01/2020 Do You Or Have You Ever Used E-cigarettes Or Vape? 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 Single Level Home Information not available 08/20/2022 Live Alone Or With Others? Alone In ( [place] ) [email or web address] Information not available 06/07/2024 Do [...] Or Greater Than 100 Degrees Fahrenheit? Yes [email or web address] Information not available 06/30/2020 Are You Or [...] How Many Children Do You Have? 6 [id number] Information not available 08/01/2020 Difficulty Reading? No Information not available 08/20/2022 Do You Use Your Seat Belt Or Car Seat Routinely? Yes Information not available 05/21/2022 Seat Belts Used Routinely Yes Information not available 08/20/2022 Are You Sexually Active? No [id number] Information not available 08/01/2020 Smoke Alarm In Home Yes Information not available 08/20/2022 Do You Have Smoke And Carbon Monoxide Detectors In Your Home? Yes Information not available 05/21/2022 At What Age Did You Start Smoking Tobacco? 1 [id number] Information not available 08/01/2020 Are You Passively Exposed To Smoke? No Information not available 10/13/2014 Do You Or Have You Ever Used Smokeless Tobacco? Never Used Smokeless Tobacco [id number] Information not available 08/01/2020 How Much Tobacco Do You Smoke? No [id number] Information not available 08/01/2020 Do You Use Any Illicit Or Recreational Drugs? No Information not available 08/20/2022 Do You Use Sunscreen Routinely? No Information not available 05/21/2022 How Many Years Have You Smoked Tobacco? 0 [id number] Information not available 08/01/2020 Difficulty Watching TV? [...] to care for yourself? Yes with dementia [id number] Information not available 08/01/2020 Do you have [...] available 09:36:20 Maternal Grandmother Cerebrovascu lar accident [email or web address] Not available 13:54:27 Paternal Aunt Malignant tumor of breast [email or web address] Not available 01/10 09:42:52 Brother Hypercholest erolemia [email or web address] Not available 01/10 09:42:52 Brother Alcohol abuse [email or web address] Not available 05/21 13:54:27 Sister Hypercholest erolemia [...] adsorbed 3 completed Poncho Britton MD [address], [address], [facility] 06/18/2023 15:09:57 Influenza, high-dose, trivalent, PF 4 completed Poncho Britton MD [address], [address], [facility] 06/07/2024 10:30:07 Past Encounters Encounter ID Performer Location Encounter Start Date Encounter Closed Date Diagnosis/Indication Diagnosis SNOMED-CT Code Diagnosis ICD10 Code Diagnosis Note [id number] Janet Humphries MA Main Office [address] [address] 06/08/2014 09:09:31 06/08/2014 09:58:47 Type 2 diabetes mellitus 70608467 Pure hypercholesterolemia 423502930 Essential hypertension 09486806 Hypothyroidism 81316056 Skin finding 857256676 [id number] Main Office 3640 [facility] [address] [place] [address] 10/13/2014 09:24:27 10/13/2014 10:42:23 Adult health examination 882234624 Will update immunizati on status and screen based on risk factors. Regular dental and ophtho care advised as well as seatbelt and sunscreen use. Distracted driving discussed. Breast and cervical cancer screening are current. Due for f/u colonoscop y. Currently demonstrat es low risk for falls and no significan t cognitive decline. Advance directives in place. Body mass index 30+ - obesity 248760168 Osteopenia 931622111 Reg ular weight bearing exercise advised as well as adequate dietaery Ca and vit D intake. Obstructiv e sleep apnea syndrome 49189469 Using orthotic. Having symptoms. Will assess for treatment effectiven ess. Essential hypertension 75143216 Hypothyroidism 78807435 Pure hypercholesterolemia 443212048 Administra tion of pneumococcal vaccine 51773521 Kidney stone 61623725 Screening for malignant neoplasm of colon 938757728 Type 2 amy betes mellitus 34913787 [id number] Poncho Britton MD Main Office 36[address] [facility] [address] [place] [place] [address] 10/27/2014 08:13:01 10/27/2014 08:51:58 Gastroesophageal reflux disease 656012966 Episode sounds like possible aspiration pneumoniti s [...] sleep while starting PPI therapy. Call inb/worse. [id number] Main Office 3640 [facility] [address] [place] [address] 02/02/2015 10:32:58 02/02/2015 11:25:15 Type 2 diabetes mellitus without complication 345368561 Well controlled . Continue current regimen. Ophtho exam utd. Liver enzy mes outside reference range 987766013 Improved/a lmost normal with better diet and exercise habits. Will follow. Pure hypercholesterolemia 412090570 Obstructiv e sleep apnea syndrome 59166360 Using orthotic with good results, continue. Ventricula r premature beats 41915953 Incidental finding on sleep study. Pt asymptomat ic. Will check labs and follow clinically for now. Dry skin 99164687 [id number] Poncho Britton MD Main Office [address] [address] [place] [address] 03/28/2015 12:39:56 03/28/2015 13:41:59 Dizziness 196616930 this may be secondary to stress/anx iety from taking care of her ill . No changes in meds and she will keep her appointmen t with cardiology . [id number] Poncho Britton MD Main Office [address] [address] [place] [address] 04/28/2015 08:16:17 04/28/2015 09:05:43 Essential hypertension 76081932 Type 2 amy betes mellitus without complication 506017041 Well controlled . Continue current regimen. Ophtho exam utd. Pure hypercholesterolemia 271123644 Reassess following statin dose titration. Palpitations 48969472 Wi ll check holter to see if paroxysmal afib might be a factor. If unremarkab le will defer further evaluation to cardiology . Asthma 080601819 Obstructiv e sleep apnea syndrome 75213343 Wants to explore other treatment options. Pt will schedule f/u with sleep med services. [id number] Janet Humphries MA Main Office [address] [address] [place] [address] 05/04/2015 10:24:14 05/04/2015 10:57:51 Palpitations 57327212 Will check holter to see if paroxysmal afib might be a factor. If unremarkab le will defer further evaluation to cardiology . [id number] Main Office [address] [address] [place] [address] 05/05/2015 11:17:11 05/05/2015 12:03:35 [id number] Main Office [address] [address] [place] [address] 06/15/2015 15:01:46 06/15/2015 16:16:45 Low back pain 344195442 Suspect piriformis syndrome likely from recent prolonged car travel. Will try PT, continue OTC NSAIDs and muscle relaxant PRN to help with therapy. Pt advised to call inb/worse or if new symptoms develop. Pt advised of medication side effects and not to drive or work while on them. [id number] Poncho Britton MD Main Office [address] [facility] [address] [place] [place] [address] 09/14/2015 08:17:08 09/14/2015 08:50:13 Type 2 diabetes mellitus 51997837 E11.9 Overdue for labs. Will have done nora. Has been off of metformin. Essential hypertension 29078113 I10 Pure hypercholesterolemia 323690582 E78.0 Reassess following statin dose titration. [id number] Poncho Britton MD Main Office [address] [address] [place] [address] 11/27/2015 15:10:47 12/05/2015 11:48:44 [id number] Poncho Britton MD Main Office [address] [address] [place] [address] 01/11/2016 08:53:42 01/11/2016 09:59:39 Adult health examination 519582854 Z00.01 Will update immunizati on status and screen based on risk factors. Regular dental and ophtho care advised as well as seat belt and sunscreen use. Distracted driving discussed. Breast, cervical and colon cancer screening are current. Currently demonstrat es low risk for falls and no significan t cognitive decline. Advance directives in place. Advance di rective discussed with patient 173049365 Z71.89 Body mass index 30+ - obesity 369245148 Z68.33 Osteopenia 852254398 M85 .80 Regular weight bearing exercise advised as well as adequate dietaery Ca and vit D intake. Due for f/u BND. Obstructiv e sleep apnea syndrome 12860876 G47.33 Using CPAP. Having symptoms. Will assess for treatment effectiven ess. Essential hypertension 14956089 I10 Well controlled , continue current regimen. Hypothyroidism 36400678 E03.9 Pure hypercholesterolemia 495388939 E78.0 Type 2 amy betes mellitus 98847539 E11.9 Has been off of meds. Will follow. [id number] Poncho Britton MD Main Office [address] [facility] [address] [place] [address] 07/24/2016 09:38:02 07/24/2016 10:22:37 Type 2 diabetes mellitus without complication 603220094 E11.9 Will recheck A1C in Sep. If > or equal to 7 will resume metformin. Ophtho exam utd. Essential hypertension 56622498 I10 Pure hypercholesterolemia 525396895 E78.01 Reassess following statin dose titration. Achilles tendinitis 1165 4001 M76.61 Heel inserts advised. Refer to podiatry or PT if persistent /worse. [id number] Poncho Britton MD Main Office 36[address] [facility] [address] [facility] [place] [address] 08/01/2016 14:15:03 08/01/2016 14:53:47 Strain of muscle of chest wall 117299750 S29.011A Likely muscular strain. Continue otc NSAID and try muscle relaxant PRN. Adequate hydration advised as well as to call if not slowly improving or worse. Strain of right trapezius muscle 6166282060 2484442 S29.012A [id number] Poncho Britton MD Main Office 36[address] [facility] [address] [place] [address] 01/16/2017 08:25:11 01/16/2017 09:35:14 Adult health examination 199498066 Z00.00 Immunizati on status and screening utd based on risk factors. Regular dental and ophtho care advised as well as seat belt and sunscreen use. Distracted driving discussed. Breast, cervical and colon cancer screening are current. Currently demonstrat es low risk for falls and no significan t cognitive decline. Advance directives in place. Liver enzy mes outside reference range 862930767 R94.5 Improved/a lmost normal with better diet and exercise habits. Will follow. Body mass index 30+ - obesity 511156569 Z68.30 E66.9 Type 2 amy betes mellitus without complication 912822245 E11.9 Will recheck A1C in Sep. If > or equal to 7 will resume metformin. Ophtho exam utd. [id number] Poncho Britton MD Main Office 36[address] [facility] [address] [place] [address] 08/08/2017 09:46:07 08/08/2017 10:25:05 [id number] Poncho Britton MD Main Office 36[address] [facility] [address] [place] [address] 09/11/2017 12:40:13 09/11/2017 13:47:13 Cholecystitis 83424440 K81.9 s/p cholescyst ectomy doing well. Loss of hair 797164695 L 65.9 Will screen for common metabolic etiologies . If normal will ask derm for opinion. Type 2 amy betes mellitus without complication 690377115 E11.9 Due for reassessme nt. Essential hypertension 35811697 I10 Dysplastic nevus of skin 411878928 D22.9 left shoulder suspicious for BCC. Pt to schedule f/u with Dr. Vila on this and hair loss. Body mass index 30+ - obesity 401102987 Z68.39 Target weight 130. May need note for wt watchers. Obesity 006929828 E66.9 [id number] Poncho Britton MD Main Office [address] [address] [place] [address] 10/27/2017 09:03:08 10/27/2017 09:31:17 [id number] Poncho Britton MD Main Office [address] [address] [place] [address] 02/05/2018 08:23:27 02/05/2018 09:36:55 Adult health examination 256488575 Z00.00 Immunizati on status and screening utd based on risk factors. Regular dental and ophtho care advised as well as seat belt and sunscreen use. Distracted driving discussed. Breast, cervical and colon cancer screening are current. Currently demonstrat es low risk for falls and no significan t cognitive decline. Advance directives in place. Type 2 amy betes mellitus without complication 872518974 E11.9 Has been well controlled . Due for reassessme nt. Body mass index 30+ - obesity 334971793 Z68.39 Target weight 130. May need note for wt watchers. Gastroesop hageal reflux disease 583753218 K21.9 Well controlled without warning signs. Will monitor. Hypothyroidism 22985516 E03.9 Clinically euthyroid. WIll check labs. Essential hypertension 55548381 I10 Joint pain in left hand 5678313137 152719 M25.542 Likely OA. Tylenol and splint advised. Call inb/worse. Multiple joint pain 3567 8005 M25.50 Obesity 905765988 E66.9 Pure hypercholesterolemia 857473470 E78.01 Reassess following statin dose titration. [id number] Poncho Britton MD Main Office [address] [address] [place] [address] 06/15/2018 10:39:54 06/15/2018 12:16:17 Flank pain 760744808 R10.9 ? musculoske letal vs early shingles vs recurrent nephrolith iasis. does not have a gallbladde r. Will need further eval if persistent /worse or if new symptoms develop. Referred otalgia 4380926 8 H92.01 [id number] Poncho Britton MD Main Office [address] [address] [place] [address] 07/27/2018 09:52:57 07/27/2018 10:34:56 Pure hypercholesterolemia 115737711 E78.01 LDL at goal on moderate dose statin. Will continue current regimen. Type 2 amy betes mellitus without complication 093499604 E11.9 Well controlled without meds. Continue diet/lifes tyle changes and monitoring . Essential hypertension 05355046 I10 Hypothyroidism 42550950 E03.9 Clinically euthyroid. WIll check labs. Gastroesop hageal reflux disease 778677117 K21.9 Well controlled on PPI. Will try transition ing to HS@B in a few weeks and call with any problems. [id number] Jairo Campbell MD Main Office [address] [address] [place] [address] 10/03/2018 09:40:27 10/03/2018 10:31:19 Dysuria 45527168 R30.0 Urinary tr act infectious disease 34460770 N39.0 Cough 72644740 R05 [id number] Poncho Britton MD Main Office [address] [address] [place] [address] 12/28/2018 11:21:40 12/28/2018 12:16:49 Spontaneous ecchymosis 901523433 R23.3 Seems spontaneou s but no other bleeding symptoms. Will screen for anatomic issue that might be predisposi ng her to vessel injury as well as coagulopat hy. Suspect that the corticoste roid injection might be a factor. WIll monitor clinically if labs and imaging all normal and no other symptoms develop. [id number] Poncho Britton MD Main Office 36[address] [facility] [address] [facility] [place] [address] 02/02/2019 10:40:23 02/02/2019 11:46:11 Cough 99666515 R05 Suspect viral vs allergic symptoms are causing mild asthma flare. Will rule out pneumonia with CXR, otherwise will focus on inflammati on reduction. Restart nasal steroid nora, and add antihistam ine if symptoms persist. Call inb/worse. Mild inter mittent asthma 602133841 J45.20 [id number] Poncho Britton MD Main Office 36[address] [facility] [address] [facility] [place] [address] 03/11/2019 08:54:34 03/11/2019 09:53:38 Adult health examination 230931741 Z00.00 Immunizati on status and screening utd [...] Type 2 amy betes mellitus without complication 510537374 E11.9 Well controlled without meds. Continue diet/lifes tyle changes and monitoring . Body mass index 30+ - obesity 152547218 Z68.31 Target weight 130. May need note for wt watchers. Asthma 478675608 J45.20 Allergic rhinitis 417023 04 J30.2 Osteopenia 400841383 M85 .80 Regular weight bearing exercise advised as well as adequate dietary Ca and vit D intake. Due for f/u BND. Varicella vaccination 68 339498 Z23 Obesity 981709299 E66.9 [id number] Dayana Burrell Main Office 36[address] [facility] [address] [place] [address] 06/03/2019 10:00:45 06/03/2019 10:59:49 Low back pain 239225052 M54.5 Non focal exam. Likely related to contusion. Call if symptoms worsen or persist for more than 4 weeks. Headache 19605395 R51 Secondary to contusion. Appropriat e heat/cold and APAP/NSAID use advised. Concussion injury of brain 063870957 S06.0X0A Closed injury of head 45 43995093 06 S09.90XA Mechanism of injury, exam findings and overall risk makes intracrani al hemmorhage unlikely. Imaging deferred but if symptoms persist or worsen pt understand s need to go to ED. Fall on sa me level from slipping, tripping or stumbling 039283974 W01.10XA [id number] Poncho Britton MD Main Office [address] [place] [address] 07/13/2019 08:04:45 07/13/2019 09:14:41 Essential hypertension 23062032 I10 Well controlled , continue current regimen . Type 2 amy betes mellitus without complication 084743657 E11.9 Well controlled without meds. Continue diet/lifes tyle changes and monitoring . Osteoarthr itis of right knee joint 2954519008 20121 M17.11 Likely similar issue as on the left. Will ask ortho to evaluate further. Screening for malignant neoplasm of colon 724908544 Z12.11 Gastroesop hageal reflux disease 475271020 K21.9 Will switch to different H2B. Osteopenia 332652175 M85 .80 Regular weight bearing exercise advised as well as adequate dietary Ca and vit D intake advised. [id number] Kait Spangler Main Office [address] [facility] [address] [place] [address] 09/27/2019 14:19:49 09/27/2019 15:31:53 Palpitations 23629098 R00.2 Pt with new onset of intermitte [...] she will go to the ED. Tachycardia 9229146 R00. 0 pulse up slightly from baseline, will discuss with cardiology . NO afib noted not SVT. HR 79 at discharge. [id number] Poncho Britton MD Main Office 3640 [facility] [address] [facility] [address] 01/24/2020 08:14:21 01/24/2020 10:00:06 Type 2 diabetes mellitus without complication 963746224 E11.9 Well controlled without meds. Continue diet/lifes tyle changes and monitoring . Need new glucose monitor. Essential hypertension 65987104 I10 Well controlled , continue current regimen . Pure hypercholesterolemia 583144634 E78.01 LDL at goal on moderate dose statin. Will continue current regimen. Hypothyroidism 52713148 E03.9 Clinically euthyroid. WIll recheck labs. Osteopenia 039025170 M85 .80 Regular weight bearing exercise advised as well as adequate dietary Ca and vit D intake advised. Vitamin d level is pending. Osteoarthr itis of joint of left hand 6151421387 19588 M19.042 Improved since injection by Dr. Ramos. Palpitations 72299029 R0 0.2 Had unremarkab le cardiology eval including echo and holter. Will monitor. Advised to call if affording symptoms or correlatin g to exertion. [id number] Poncho Britton MD Main Office [address] [facility] [address] [place] [address] 03/13/2020 08:14:03 03/13/2020 09:28:27 Adult health examination 844579613 Z00.00 Immunizati on status and screening utd based on risk factors. Flu advised in the Fall. Regular dental and ophtho care advised as well as seat belt and sunscreen use. Distracted driving discussed. Breast, cervical and colon cancer screening are current. Currently demonstrat es low risk for falls and no significan t cognitive decline. Advance directives in place. Varicella vaccination 68 807559 Z23 pt declines second shot after poor reaction to initial Screening for malignant neoplasm of colon 673266258 Z12.11 Needs new GI MD. Type 2 amy betes mellitus without complication 747433712 E11.9 Well controlled without meds. Continue diet/lifes tyle changes and monitoring . Need new glucose monitor. Allergic rhinitis 288392 04 J30.2 Dilatation of aorta 2666 0001 I71.2 Due for f/u in 10/2020 Chronic sinusitis 785391 00 J32.9 Symptoms present for awhile and suspect that allergies have set her up for a secondary bacterial process. Periumbilical pain 79098 3005 R10.33 See if related to hernia. [id number] Jairo Campbell MD Located Within [facility] h [address] [facility] [address] [place] [address] 04/29/2020 08:19:33 04/29/2020 09:42:58 Chronic recurrent sinusitis 328086891 J32.9 Recently treated with abx so will not repeat. Recommend restarting a nasal spray (something other than flonase) and call next week if not improving and I will consider another abx at that point. [id number] Poncho Britton MD Main Office [address] [facility] [address] [place] [address] 06/13/2020 15:27:49 06/13/2020 16:01:46 Fall on same level from slipping, tripping or stumbling 172335922 W01.10XA Closed injury of head 45 27042350 06 S09.90XA Sounds like this was strictly a mechanical Fall and based on history unlikely to be related to a neurocardi ac event. Will defer further evaluation at this time. Advised to call if symptoms recur to any degree. Essential hypertension 56461035 I10 Well controlled , continue current regimen. No evidence that hypotensio n was a factor with her fall. [id number] Dayana Burrell Located Within [facility] h [address] [facility] [address] [place] [address] 06/30/2020 13:02:26 06/30/2020 14:39:43 Upper respiratory infection 45741972 J06.9 salt water gargles, otc pain medication as needed, steam, , otc cough med prn, call if not improving. If covid positive needs to quanantine for 7-14 days Counseling 991988802 Z71 .9 Health advice, education or counseling done for COVID 19 Exposure t o viral disease 3574531308 84833 Z03.818 covid testing today, quarantine until test results are back [id number] Poncho Britton MD Main Office [address] [facility] [address] [place] [address] 03/15/2021 10:04:29 03/15/2021 10:46:07 Adult health examination 600139723 Z00.00 Immunizati on status and screening utd based on risk factors. Flu advised in the Fall. Regular dental and ophtho care advised as well as seat belt and sunscreen use. Distracted driving discussed. Breast, cervical and colon cancer screening are current. Currently demonstrat es low risk for falls and no significan t cognitive decline. Advance directives in place. Essential hypertension 67922328 I10 Well controlled , continue current regimen. No evidence that hypotensio n was a factor with her fall. Hypothyroidism 33281740 E03.9 Clinically euthyroid. WIll recheck labs. Type 2 amy betes mellitus without complication 333671618 E11.9 Well controlled without meds. Continue diet/lifes tyle changes and monitoring . Need new glucose monitor. Pure hypercholesterolemia 567583707 E78.01 LDL at goal on moderate dose statin. Will continue current regimen. Screening for malignant neoplasm of breast 832742755 Z12.39 Pt declines screening based on low risk history and age. Dilatation of aorta 2666 0001 I71.2 Due for f/u in 10/2020, pt will schedule appt with cards nora Osteoarthr itis of knee 355596147 M17.11 Ischemic colitis 0926745 4 K55.9 Noted on recent colonoscop y. Continue risk factor reduction, and ASA. Advance di rective discussed with patient 401848935 Z71.89 HCP status reviewed and discussed. HCP/MOLST forms provided Osteopenia 088849427 M85 .80 Regular weight bearing exercise advised as well as adequate dietary Ca and vit D intake advised. Vitamin d level is pending. Paronychia of toe 104794 002 L03.032 1st digit call inb/worse. [id number] Poncho Britton MD Main Office [address] [facility] [address] [facility] [place] [address] 06/12/2021 13:31:36 06/12/2021 14:21:17 Hypokalemia 83374647 E87.6 Likely from indapamide which she is on for kidney stone prophylaxi s. Will supplement and reassess. Osteoarthr itis of knee 233820025 M17.11 Strain of neck muscle 36 3843415 S16.1XXA Likely related to soft tissue injury. Will try low dose muscle relaxant, and good hydration advised. Consider PT referral inb/worse. Asthma 296637804 J45.20 [id number] Poncho Britton MD Main Office [address] [facility] [address] [place] [address] 07/17/2021 09:15:09 07/17/2021 10:09:27 Essential hypertension 10760455 I10 Well controlled , continue current regimen. No evidence that hypotensio n was a factor with her fall. Hypothyroidism 58361997 E03.9 Clinically euthyroid. WIll recheck labs. Type 2 amy betes mellitus without complication 937439362 E11.9 Well controlled without meds. Continue diet/lifes tyle changes and monitoring . Need new glucose monitor. Chronic sinusitis 246134 00 J32.9 Symptoms present for awhile and suspect that allergies have set her up for a secondary bacterial process. Advised to start abx if steroid course doesn't help. Pain of ri ght shoulder joint 5220011738 2297357 M25.511 c/w bursitis. Will ask rheum to evaluate and consider injection. [id number] Poncho Britton MD Main Office [address] [place] [address] 11/15/2021 09:59:50 11/15/2021 10:54:59 Essential hypertension 38790885 I10 Well controlled , continue current regimen. Type 2 amy betes mellitus without complication 169556295 E11.9 Well controlled without meds. Continue diet/lifes tyle changes and monitoring . Need new glucose monitor. Kidney stone 18216759 N2 0.0 This is why she is on diuretic. Will continue potassium supplement as long as this is the case. Hypothyroidism 76019684 E03.9 Clinically euthyroid. Will monitor labs. Obstructiv e sleep apnea syndrome 11655519 G47.33 Using CPAP. Having symptoms. Will assess for treatment effectiven ess. Hypokalemia 64047028 E87 .6 Likely from indapamide which she is on for kidney stone prophylaxi s. Will supplement and reassess. 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 Had normal cardiac CT recently.P t states that anxiety is the cause of c/p -- has had sig stressors lately, mireille c 's health / moving him to snf Anxiety 20417116 F41.9 Pt did not take hydroxyzin e.continue sertaline and tapering of buproprion as dir by psychiatri c nurse practition er Gastroesop hageal reflux disease 482737612 K21.9 Pt on pepcid for GERd, tolerates it well. No PPI.Was on omeprazole for 2 weeks a few years and did not tolerate it and so was discontinu ed. Hypokalemia 61388316 E87 .6 recheck bmp Essential hypertension 97902409 I10 bp stable - cont meds as dir [id number] Poncho Britton MD Main Office [address] [place] [address] 05/21/2022 13:54:04 05/21/2022 15:23:00 Adult health examination 605152163 Z00.00 Immunizati on status and screening utd [...] Type 2 amy betes mellitus without complication 680302302 E11.9 Has been well controlled without meds. Continue diet/lifes tyle changes and monitoring . Need new glucose monitor. Optho exam utd Pure hypercholesterolemia 560073081 E78.01 LDL at goal on moderate dose statin. Will continue current regimen. Hypothyroidism 20208234 E03.9 Clinically euthyroid. Will monitor labs. Essential hypertension 69034812 I10 Well controlled , continue current regimen. Screening for malignant neoplasm of breast 977423699 Z12.39 Pt declines screening based on low risk history and age. Pain of le ft shoulder joint 4044151983 3886661 M25.512 Will try home PT and call for ortho eval inb/worse. Headache 68739683 R51.9 Worsening, with diplopia, and atypical. No recent intracrani al imaging. Diplopia 14430165 H53.2 Hypokalemia 59000080 E87 .6 Likely from indapamide which she is on for kidney stone prophylaxi s. Will comply better with supplement and reassess. Major depr ession single episode, in partial remission 32649897 F32.4 Symptoms well controlled on SSRI/bupro prion Obstructiv e sleep apnea syndrome 29798979 G47.33 Using CPAP. Having symptoms. Will assess for treatment effectiven ess. Osteoarthr itis of knee 638449364 M17.11 Scheduling right TKR Body mass index 25-29 - overweight 732160590 E66.3 Z68.28 Dilatation of aorta 2666 0001 I71.[address] angio that was unremarkab le. Following with cardiology . [id number] Danae Rubin RN Main Office [address] [facility] [address] [facility] [place] [address] 06/26/2022 11:22:10 07/03/2022 11:39:24 [id number] Poncho Britton MD Main Office [address] [facility] [address] [facility] [place] [address] 08/20/2022 14:34:03 08/20/2022 15:25:56 Fatigue 29591656 R53.83 Potentiall y multifacto rial. Will reduce citalopram to 20mg and let me know how symptoms are impacted. Screen for common metabolic etiologies including reassess of hypothyroi d/diabetes status. Hypothyroidism 91456921 E03.9 Clinically euthyroid. Will monitor labs. Major depr ession single episode, in partial remission 52851783 F32.4 Wonder if citalopram is affording fatigue. Will try reducing SSRI dose which was titrated prior to worsening symptoms. Obstructiv e sleep apnea syndrome 36309041 G47.33 Off of CPAP, has sleep study 08/29. Type 2 amy betes mellitus without complication 210976781 E11.9 Has been well controlled without meds to this point. Dilatation of aorta 2666 0001 I71.21 3.7cm ascending aortic dilation followed by cardiology . [id number] Bernardo Dumont MD Main Office [address] [facility] [address] [place] [address] 10/26/2022 10:42:33 10/26/2022 12:14:00 Herpes zoster 5569212 B02.9 vesicular lesion will treat for shingles.A dvised to keep lesion covered.Or ders per below [id number] MAY MONROE MD Main Office [address] [address] [place] [address] 11/08/2022 14:06:31 11/08/2022 15:03:13 Herpes zoster 0986428 B02.9 - improved, no new vesicles however erythema and tenderness still present- completed valacyclov ir treatment- will continue gabapentin treatment due to continued pain- can c/w lidocaine cream as needed Atypical chest pain 1025 93379 R07.89 - pain located on the right side at the side of the recent shingles eruptions- pain most likely coming from the shingles virus than a cardiac etiology- EKG was done for completene ss which was normal (no new changes from previous EKG)> pt has inverted t-waves and arrhythmia noted however this not new findings Swelling o f ankle joint 917347780 M25.471 - left sided worse than the right- suspect venous insufficie ncy- ordered ABDULLAHI/PVR for further evaluation - pt advised to start using compressio n stockings [id number] Poncho Britton MD Main Office [address] [address] [place] [address] 01/06/2023 12:36:21 01/06/2023 13:22:44 Pure hypercholesterolemia 694271589 E78.01 LDL at goal on moderate dose statin. Will continue current regimen. Essential hypertension 44712962 I10 Well controlled , continue current regimen. Type 2 amy betes mellitus without complication 146549587 E11.9 Has been well controlled without meds to this point. Hypothyroidism 17933769 E03.9 Clinically euthyroid. Will continue current dose. [id number] Poncho Britton MD Main Office [address] [address] [place] [address] 05/20/2023 13:57:47 05/20/2023 14:41:08 Fatigue 86530316 R53.83 Potentiall y multifacto rial. . Screen for common metabolic etiologies including reassess of hypothyroi d/diabetes status. Possibly viral or nutritiona l issues. Lesion of tongue 4821563 05 K14.9 Will ask oral surgeon to evaluate and consider bx if persistent /worse. Type 2 amy betes mellitus without complication 547951769 E11.9 Has been well controlled without meds to this point. [id number] Poncho Britton MD Main Office [address] [facility] [address] [facility] [place] [address] 06/03/2023 13:47:26 06/03/2023 14:43:31 Adult health examination 673263546 Z00.00 Immunizati on status partially updated. COVID booster, and flu advised when available. Regular dental and ophtho care advised as well as seat belt and sunscreen use. Distracted driving discussed. Breast, cervical and colon cancer screening are current. Currently demonstrat es low risk for falls and no significan t cognitive decline. Advance directives in place. Lesion of oral mucosa 10 26104737 282098 K13.70 Previous referral not able to see her. Pt will contact Dr Sinha's office and let me know if there are any further issues getting an eval. Obstructiv e sleep apnea syndrome 76009576 G47.33 Off of CPAP, advised to follow up with sleep medicine if unable to resume. Body mass index 30+ - obesity 938075311 E66.9 Z68.31 Requires a tetanus booster 584419533 Z23 Major depr ession in partial remission 29227776 F32.4 Stable despite numerous stressors on SSRI/bupro pion. Following with therapist as well. Will monitor. Dilatation of aorta 2666 0001 I71.21 3.7cm ascending aortic dilation, no echo since 2019, will arrange. Type 2 amy betes mellitus without complication 504090915 E11.9 Has been well controlled without meds to this point. Pure hypercholesterolemia 352450586 E78.01 LDL at goal on moderate dose statin. Will continue current regimen. [id number] Poncho Britton MD Main Office [address] [facility] [address] [facility] [place] [address] 11/03/2023 14:15:21 11/03/2023 15:04:58 Essential hypertension 29795585 I10 Well controlled , continue current regimen. Chest wall pain 82074164 6 R07.89 c/w pectoralis muscle strain likely from lifting/co ugh. No palpable abnormalit y on exam. Would refer for imaging if persistent /worse or palpable abnormalit y identified . Type 2 amy betes mellitus without complication 873743558 E11.9 Has been well controlled without meds to this point. Mitral prudencio ve regurgitation 70832407 I34.0 Asymptmati c, will monitor. [id number] Poncho Britton MD Main Office [address] [facility] [place] [address] 03/15/2024 13:22:36 03/15/2024 14:32:07 Fatigue 19454348 R53.83 Potentiall y multifacto rial. . Screen for common metabolic etiologies including reassess of hypothyroi d/diabetes status. Possibly related to mood issues or medication s. Essential hypertension 32712911 I10 Well controlled , continue current regimen. Possible contributo r as well but inly on diuretic. Adequate hydration techniques discussed. Type 2 amy betes mellitus without complication 038990837 E11.9 Has been well controlled without meds to this point. Mitral prudencio ve regurgitation 85602653 I34.0 Asymptomat ic, will monitor. Obstructiv e sleep apnea syndrome 31089428 G47.33 Off of CPAP, advised to follow up with sleep medicine if fatigue persists. Did see them earlier this month and it wasn't felt that her degree of apnea was that significan t. [id number] Poncho Britton MD Main Office [address] [facility] [place] [address] 05/03/2024 10:39:38 05/03/2024 11:42:07 Lightheadedness 901770217 R42 Suspect that dehydratio n from heat, diuretic therapy and poor H2O intake. Increased water intake advised. No evidence to suggest that this is cardiac related. Sinus tachycardia 316908 01 R00.0 Also c/w poor hydration. Thyroid labs normal. Nausea 693117757 R11.0 Possibly from gastritis secondary to stress, steroid injection and ASA use. Will d/c ASA dn switch from famotidine to omeprazole for short term. Essential hypertension 57031445 I10 Well controlled , continue current regimen. Possible contributo r as well but only on diuretic. Adequate hydration techniques discussed. Total bili smith above reference range 7894580686 37636 R17 Pt is s/p cholecyste ctomy, will recheck and consider imaging if abnormalit ies and symptoms persist. [id number] Hal Reich MD Main Office [address] [facility] [address] [facility] [place] [address] 05/24/2024 15:22:34 05/24/2024 16:10:33 Herpes zoster 5908833 B02.9 [id number] Poncho Britton MD Main Office [address] [facility] [address] [facility] [place] [address] 06/07/2024 09:37:05 06/07/2024 10:30:47 Adult health examination 252428231 Z00.00 COVID booster advised via local pharmacy. Regular dental and ophtho care advised as well as seat belt and sunscreen use. Distracted driving discussed. Breast, cervical and colon cancer screening are current. Currently demonstrat es low risk for falls and no significan t cognitive decline. Advance directives in place. Influenza vaccine needed 0418819699 106 Z23 Body mass index 30+ - obesity 046602092 E66.9 Z68.30 Obstructiv e sleep apnea syndrome 07578380 G47.33 Off of CPAP, advised to follow up with sleep medicine if unable to resume. Major depr ession in partial remission 00336805 F32.4 Stable despite numerous stressors on SSRI/bupro pion. Following with therapist as well. Will monitor. Type 2 amy betes mellitus without complication 102270716 E11.9 Has been well controlled without meds to this point. Pure hypercholesterolemia 301413864 E78.01 LDL at goal on moderate dose statin. Will continue current regimen. Asthma 527492052 J45.20 Well controlled based on bronchodil ator use, will continue. Calcificat ion of coronary artery 038432688 I25.84 Working on risk factor control. Will titrate statin if LDL still >70 on repeat. Aneurysm o f thoracic aorta 051580362 I71.21 3.7cm ascending aortic dilation, stable. Following with cardiology . [id number] Dayana Burrell Main Office [address] [facility] [address] [place] [address] 09/13/2024 14:31:40 09/13/2024 15:38:21 Open wound of left lower leg 9941793492 4786218 S81.802A Wound care advised, barrier cream recommende d. Call if not slowly improving/ worse. Cellulitis of left lower limb 1728749438 6585545 L03.116 On appropriat e abx regimen via UC. Advised to continue. [id number] Tika Santana MA Main Office [address] [facility] [address] [place] [address] 09/18/2024 09:07:52 09/18/2024 09:45:12 Pain of left calf 7813886965 738962 M79.662 R/o DVT. D-dimer today, venous ultrasound order placed in. Pt. will continue current antibiotic s. [id number] Bernardo Dumont MD Main Office [address] [facility] [address] [place] [address] 11/06/2024 10:34:13 11/06/2024 12:28:46 Essential hypertension 41700597 I10 I reviewed the patient? s ECG, [...] if she develops new or worsening symptoms. [id number] Poncho Britton MD Main Office [address] [place] [address] 12/06/2024 10:25:17 12/06/2024 11:18:32 Essential hypertension 93848283 I10 Based on ambulatory BP monitoring better control needed. Will resume indapamide , continue losartan at current dose. Type 2 amy betes mellitus without complication 378204782 E11.9 Has been well controlled without meds to this point, but if >7.5 will need rx, consider metformin vs SGLT2 inhibitor. Asthma 635128379 J45.20 Well controlled based on bronchodil ator use, will continue. 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 Memory impairment 566025 006 R41.3 Will screen for potential deficienci es and reimage to rule out new CVA/mass. 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 Will increase to 80mg daily. [id number] John Nesbitt PA-C Main Office [address] [address] [place] [address] 12/15/2024 12:53:45 12/15/2024 14:37:56 Acute sinusitis 43021964 J01.90 recommend probiotics while on abx Herpes labialis 2815034 B00.1 pt c/o early sxs of cold sore [id number] Poncho Britton MD Main Office [address] [place] [address] 12/20/2024 10:39:07 12/20/2024 12:19:30 Anxiety 03345083 F41.1 Seems worse since stopping SSRI and effectivel y being on buproprion alone. Resume SSRI and see if fluoxetine is better tolerated and effective. Pt working on connecting with a therapist and is going to stopp following with Milly because of logistical issues. Major depr ession single episode, in partial remission 26092668 F32.4 Seems worse since stopping SSRI and effectivel y being on buproprion alone. Will continue buproprion as well for now. Essential hypertension 48242112 I10 Well controlled on diuretic with K supplement . Will confirm that level has normalized . Memory impairment 155901 006 R41.3 I suspect that this is related to the poorly controlled mood issues. Will defer further testing and monitor with resumption of SSRI therapy. [id number] Poncho Britton MD Main Office [address] [facility] [address] [facility] [place] [place] [address] 01/04/2025 10:45:02 01/06/2025 17:12:09 [id number] MAY MONROE MD Main Office [address] [facility] [address] [facility] [place] [address] 01/08/2025 09:22:36 01/08/2025 10:37:37 Recurrent falls 578711478 R29.6 Do believe that the reasons for [...] RTC in one week History of fall 68065691 9 Z91.81 - has been having several falls since December 2024- c/w home physical therapy- after completion of home physical therapy would strongly recommend balance PT with [facility] Transition from acute care to self-care 1121660585 35935 Z76.89 - reviewed hospital course Hypothyroidism 96481068 E03.9 - currently unsure if patient is taking levothyrox ine- pt mentions she takes it but daughter did not read it to MD while on the phone- will check thyroid function Coronary atherosclerosis 362702054 I25.10 Tremor 88003439 R25.1 - see above Health Concerns Section [...] [place]: [employer] Nataliia B Amado [id number] Nataliia B Amado 12/06/2024 2 [facility] ([facility] [id number] Nataliia B B Amado [id number] Nataliia B Amado 12/15/2024 1 MEDICARE [place]: [employer] Nataliia B Amado [id number] Nataliia B Amado 12/15/2024 2 [facility] ([facility] [id number] Nataliia B B Amado [id number] Nataliia B Amado 12/20/2024 1 [place]: [employer] Nataliia B Amado [id number] Nataliia B Amado 12/20/2024 2 [facility] ([facility] [id number] Nataliia B B Amado [id number] Nataliia B Amado 01/04/2025 1 [place]: [employer] Nataliia B Amado [id number] Nataliia B Amado 01/04/2025 2 [facility] ([facility] [id number] Nataliia B B Amado [id number] Nataliia B Amado 01/08/2025 1 [place]: [facility] Nataliia B Amado [id number] Nataliia B Amado 01/08/2025 2 [facility] ([facility] [id number] Nataliia B B Amado [id number] Nataliia B Amado Notes Date Note Type [...] Context:normal thyroid levels Poncho Britton MD [address] [facility] [address], [place], [address], [place] [facility] 12/06/2024 12:31:34 12/15/2024 text/html Nasal [...] feeling of fullness. John Nesbitt PA-C [address] [facility] [address], [place], [address], [facility] 12/15/2024 15:18:41 12/20/2024 text/html Anxiety/Depressi onRepo rted [...] but K was low. Poncho Britton MD [address], [address], [facility] 12/20/2024 13:02:38 01/04/2025 text/html Hospitalization Contact RecordReported bypatient.Follow UpHospital: [facility]; admit date: (Please enter in format [...] pt to return call Pt presented to [facility] after a fall. Pt fell at [...] services. MEDS RECONCILED Poncho Britton MD [address] [facility] [address], [place], [address], [facility] 01/06/2025 17:12:09 01/08/2025 text/html Hospitalization Contact RecordReported bypatient.Follow UpHospital: [facility]; admit date: (Please enter in format [...] pt to return call Pt presented to [facility] after a fall. Pt fell at [...] or has it scheduled. MAY MONROE MD [address] [facility] [address], [place], [address], [facility] 01/08/2025 15:45:02 OBGyn Episode No OBEpisode recorded.
--- OUTSIDE RECORDS SUMMARY | 2025-01-17 06:19 | XMS_ITS | Encounter Summary ---
Author Organization [facility] Address [address] [place] [address] Care Team Providers Care Director Process Improvement Name Role Phone Poncho Wise MD Primary Care Provider [phone] Reason for Visit * Reason Onset Date Comments [id number] (ok to book) 01/11/2025 ROCT Enrollment 01/11/2025 Enrolling patien t for 30 day ROCT Encounter Details Date Type Department Care Team (Late st Contact Info) Description 01/11/2025 Telephone [facility] Associates [facility] Medical [address] [place] [address] Mohamud Fulton MD [address] [place] [address] Dr [address] [place] [address] [id number] (ok to book); ROCT Enrollment (Enrolling patient [...] Req per Medicare Insurance Referral: n/a CPT: 11945 - ROCT DX: R55, R00.2 Duration: 30 Days [place]: rCisti MASTERSON documented in this encounter Plan of Treatment Upcoming Encounters Date Type Department Care Team (Late st Contact Info) Description 01/21/2025 7:00 AM EDT Ancillary Procedure [facility] Cardiology [facility] - [address] [place] [address] 01/24/2025 12:30 PM EDT Ancillary Procedure [facility] Cardiology [facility] [address] [place] [address] 03/08/2025 9:40 AM EDT Office Visit [facility] Cardiology [facility] - [facility] [address] [place] [address] Moon Montalvo NP [address] [place] [address] [place] [address] 07/13/2025 9:10 AM EDT Office Visit [facility] - [facility] [address] [facility] [address] [place] [address] Gracia Hernandez NP [address] [place] [address] Dr [address] [place] [address] documented as of this encounter Visit Diagnoses Not on filedocumented in this encounter Care Teams Director Process Improvement Relationship Specialty Start Date End Date Poncho Wise MD [address] [facility] [address] [place], [place] PCP - General 05/24/15 documented as of this encounter
--- OUTSIDE RECORDS SUMMARY | 2025-01-17 06:19 | XMS_ITS | Clinical Summary ---
Author Organization [facility] Address [address] [place] [address] Care Team Providers Care Rn Call Center Name Role Phone Poncho Wise MD Primary Care Provider [phone] Medications Medication Sig Dispensed Refills Start Date [...] age to complete this topic Care Teams Rn Call Center Relationship Specialty Start Date End Date Poncho Wise MD [address] [place] [address] PCP - General Internal Medicine 10/12/21
--- OUTSIDE RECORDS SUMMARY | 2025-01-17 06:19 | XMS_ITS | Clinical Summary ---
Author Organization [facility] Address [address] [place] [address] Phone Care Team Providers Care Private Eye Name Role Phone Poncho Wise MD Primary Care Provider [phone] Allergies No known active allergies Medications indapamide [...] Encounters Date Type Department Care Team Description 01/14/2025 Telephone [facility] [address] [place] [address] Gracia Hernandez NP ECHOCARDIOGRAM 01/11/2025 Telephone [facility] 2 [facility] [address] [place] [address] Daniel Mayo MD [id number] (ok to book); ROCT Enrollment (Enrolling patient for 30 day ROCT) 01/11/2025 Telephone [facility] [address] [place] [address] Libby Dudley NP 12/14/2024 11:10 AM EDT Office Visit [facility] 2 [facility] [address] [place] [address] Gracia Hernandez NP Hypertension, unspecified type (Primary Dx); Palpitations; Nonrheumatic mitral valve regurgitation; Mitral valve insufficiency, unspecified etiology 12/13/2024 Telephone [facility] [address] [place] [address] Dainel Mayo MD Hypertension from Last 3 Months Surgical History Surgery Date Site/Laterality Comments CHOLECYSTECTOMY 08/04/2017 PROCEDURE: WI LAPAROSCOPY SURG CHOLECYSTECTOMY CHOLECYSTECTOMY 08/04/2017 PROCEDURE: HISTORICAL [...] Description 01/21/2025 7:00 AM EDT Ancillary Procedure [facility] Cardiology [facility] - [address] [facility] [address] [place] [address] 01/24/2025 12:30 PM EDT Ancillary Procedure [facility] Cardiology [facility] - [address] [place] [address] 03/08/2025 9:40 AM EDT Office Visit [address] [place] [address] Moon Montalvo NP [address] [place] [address] [place] [address] 07/13/2025 9:10 AM EDT Office Visit [facility] Dr [address] [facility] [address] [place] [address] Gracia Hernandez NP [address] [place] [address] Dr [address] [place] [address] Health Maintenance Due Date Last Done Comments [...] Blood Test 09/08/2022 06/02/2021, 06/02/2021 COVID-19 Vaccine (2023-2 5 season) 2024 Influenza Vaccine (Season Ended) [...] GEMUSE QTc 459 ms GEMUSE P Wave [place] 57 degrees GEMUSE R [place] -65 degrees GEMUSE T [place] 12 degrees GEMUSE ECG Interpretation Normal sinus rhythm Low voltage QRS Incomplete right bundle branch block Left anterior fascicular block Possible Lateral infarct , age undetermined Abnormal ECG No previous ECGs available Confirmed by DANIEL MAYO ([id number]) on 12/15/2024 12:16:30 PM GEMUSE 12/14/2024 11:1 5 AM EDT 12/15/2024 12:16 PM EDT Gracia Hernandez 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
[2025-01-17 06:26] LABS: Basophils Percent Auto 0.4 % (0-2); Eosinophils Absolute Auto 0.1 X10*3/uL (0.0-0.4); Eosinophils Percent Auto 1.2 % (0-4); Hematocrit 40.8 % (37.0-47.0); Hemoglobin 13.9 g/dl (12.0-16.0); Imm Gran Abs Auto 0.06 X10*3/uL (0.00-0.03); Imm Gran Pct Auto 0.6 % (0.0-0.4); Lymphocytes Absolute Auto 2.3 X10*3/uL (1.2-4.9); Lymphocytes Percent Auto 22.5 % (20-40); Mean Corpuscular HGB Conc 34.1 g/dl (31.0-35.0); Mean Corpuscular Hemoglobin 32.6 pg (27.0-33.0); Mean Corpuscular Volume 95.6 fL (80.0-98.0); Mean Platelet Volume 10.2 fL (9.4-12.3); Monocytes Absolute Auto 0.7 X10*3/uL (0.1-1.2); Monocytes Percent Auto 6.6 % (2-11); Neutrophils Absolute Auto 6.9 x10*3/uL (2.0-8.3); Neutrophils Percent Auto 68.7 % (45-73); Platelet Count 304 X10*3/uL (160-400); Red Blood Count 4.27 X10*6/uL (4.20-5.50); Red Cell Distribution Width 12.5 % (11.0-16.0)
[2025-01-17 06:35] LABS: Anion Gap 16 (12-20); Blood Urea Nitrogen 11 mg/dL (9-16); Calcium 9.1 mg/dL (8.4-10.2); Carbon Dioxide 21 mmol/L (22-29); Chloride 108 mmol/L (96-108); Estimated Glomerular Filt Rate > 60; Glucose Random 141 mg/dL (60-115); Potassium 3.7 mmol/L (3.3-5.1); Sodium 141 mmol/L (135-145)
== END 2025-01-17 06:07 | disposition home or self-care (01) ==
LOC: HO.MMNH1L 06:06
PROVIDERS: Visit Provider Nurse Practitioner
DX: I10 Essential (primary) hypertension (principal); E03.9 Hypothyroidism, unspecified
CPT/HCPCS: 36415; 80048; 85025

== ENCOUNTER 2025-01-24 05:55 | Outpatient (REF) | payer MEDICARE, OTHER, SELFPAY ==
[2025-01-24 05:56] LABS: MANUAL DIFF FLAG NO
--- OUTSIDE RECORDS SUMMARY | 2025-01-24 06:02 | XMS_ITS | Clinical Summary ---
Author Organization [facility] Address [address] [place] [address] Care Team Providers Care Latin Dance Instructor Name Role Phone Poncho Wise MD Primary Care Provider + [phone] Medications Medication Sig Dispensed Refills Start Date [...] age to complete this topic Care Teams Latin Dance Instructor Relationship Specialty Start Date End Date Poncho Wise MD [address] [place] [address] PCP - General Internal Medicine 10/12/21
--- OUTSIDE RECORDS SUMMARY | 2025-01-24 06:02 | XMS_ITS | Clinical Summary ---
Author Organization [facility] Address [address] [place] [address] Phone Care Team Providers Care Radiation Monitor Name Role Phone Poncho Wise MD Primary Care Provider [phone] Allergies No known active allergies Medications indapamide [...] Encounters Date Type Department Care Team Description 01/21/2025 7:00 AM EDT Ancillary Procedure [facility] [address] [place] [address] Pre-syncope 01/15/2025 9:00 AM EDT Ancillary Procedure [facility] [address] [place] [address] Pre-syncope; Palpitations 01/14/2025 Telephone [facility] 2 [facility] [address] [place] [address] Gracia Hernandez NP ECHOCARDIOGRAM 01/11/2025 Telephone [facility] [address] [place] [address] Daniel Mayo MD [id number] (ok to book); ROCT Enrollment (Enrolling patient for 30 day ROCT) 01/11/2025 Telephone [facility] [address] [place] [address] Libby Dudley NP 12/14/2024 11:10 AM EDT Office Visit [facility] [address] [place] [address] Gracia Hernandez NP Hypertension, unspecified type (Primary Dx); Palpitations; Nonrheumatic mitral valve regurgitation; Mitral valve insufficiency, unspecified etiology 12/13/2024 Telephone [facility] [address] [place] [address] Daniel Mayo MD Hypertension from [...] Care Team (Late st Contact Info) Description 01/24/2025 12:30 PM EDT Ancillary Procedure [facility] Cardiology [facility] [address] [place] [address] 03/08/2025 9:40 AM EDT Office Visit [facility] Cardiology [facility] [address] [facility] Dr [address] [place] [address] Moon Montalvo NP [address] [place] [address] [place] [address] 07/13/2025 9:10 AM EDT Office Visit [facility] Cardiology [facility] [address] [facility] [address] [place] [address] Gracia Hernandez NP [address] [place] [address] Dr [address] [place] [address] Health Maintenance Due Date Last Done Comments Diabetes: Annual Foot Exam 1950 Diabetes: Annual Retina Eye Exam 1950 Diabetes: Annual GFR (Glomerular Filtration Rate) 06/02/2022 06/02/2021, 06/02/2021 Cholesterol Screening (Lipid Panel) 08/31/2022 Depression Screening 08/31/2022 Falls Risk Assessment 08/31/2022 Medicare Annual Wellness Visit 08/31/2022 Social Influencers of Health Screening 08/31/2022 Hypertension/CHF/CAD Annual BMP Blood Test 09/08/2022 06/02/2021, 06/02/2021 COVID-19 Vaccine () 05/30/2024 09/15/2023, 07/16/2022, 03/09/2022, Additional history exists Diabetes: Annual Urine Albumin-Creatinine Ratio (uACR) 01/21/2025 Diabetes: Blood Sugar Control Test (HGBA1C) 01/21/2025 Osteoporosis Screening (Bone Density Screening) 06/04/2029 06/04/2019 DTaP,Tdap,and Td Vaccines (3 - Td or Tdap) 06/03/2033 06/03/2023, 08/13/2013 Pneumococcal Vaccine: 50+ Years Completed 10/13/2014, 01/04/2008 Zoster Vaccines Completed 07/06/2023, 08/29, 06/02/2019, Additional history exists RSV Immunization Adult Patients Completed 09/15/2023 Influenza Vaccine Completed 06/07/2024, , 07/16/2022, Additional history exists HIB Vaccines Aged Out No longer eligi [...] 20 months Aged Out No longer eligible based on [...] GEMUSE QTc 459 ms GEMUSE P Wave [place] 57 degrees GEMUSE R [place] -65 degrees GEMUSE T [place] 12 degrees GEMUSE ECG Interpretation Normal sinus rhythm Low voltage QRS Incomplete right bundle branch block Left anterior fascicular block Possible Lateral infarct , age undetermined Abnormal ECG No previous ECGs available Confirmed by DANIEL MAYO ([id number]) on 12/15/2024 12:16:30 PM GEMUSE 12/14/2024 11:1 5 AM EDT 12/15/2024 12:16 PM EDT Gracia Hernandez 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
--- OUTSIDE RECORDS SUMMARY | 2025-01-24 06:02 | XMS_ITS | Encounter Summary ---
Author Organization [facility] Address [address] [place] [address] Care Team Providers Care Weights And Measures Sealer Name Role Phone Poncho Wise MD Primary Care Provider [phone] Reason for Visit * Imaging (Routine) - Authorized Specialty Diagnoses / Procedures Referred By Alycia taylor Referred To Contact Diagnoses Pre-syncope Procedures Vascular US duplex carotid bilateral Libby Dudley NP [address] [place] [address] Phone: tel: fax: [facility] Referral ID Status Reason Start Date Expiration Date V isits Requested Visits Authorized [id number] Authorized 01/11/2025 01/11/2026 1 1 Encounter Details Date Type Department Care Team ([facility] Contact Info) Description 01/21/2025 7:00 AM EDT Ancillary Procedure [facility] - [address] [place] [address] Pre-syncope Social History Tobacco Use Types Packs/Day Years [...] on file documented as of this encounter Plan of Treatment Upcoming Encounters Date Type Department Care Team (Late Contact Info) Description 01/24/2025 12:30 PM EDT Ancillary Procedure [facility] Cardiology [facility] - [address] [place] [address] 03/08/2025 9:40 AM EDT Office Visit [facility] Cardiology [place] [address] [place] [address] Moon Montalvo, KARMEN [address] [place] [address] [place] [id number] 07/13/2025 9:10 AM EDT Office Visit [address] [place] [address] Gracia Hernandez NP [address] [place] [address] [address] [place] [address] Pending Results Name Type Priority Associated Diagnoses Date/Time Vascular US duplex carotid bilateral Vascular Ultrasound Routine Pre-syncope 01/21/2025 7:16 AM EDT documented as of this encounter Visit Diagnoses Diagnosis Pre-syncope Syncope and collapse documented in this encounter Care Teams Weights And Measures Sealer Relationship Specialty Start Date End Date Poncho Wise MD [address] [place], [place] PCP - General 05/24/15 documented as of this encounter
--- OUTSIDE RECORDS SUMMARY | 2025-01-24 06:02 | XMS_ITS | Clinical Summary ---
Author Organization [facility] Address [address] [place] [address] Care Team Providers Care Lvn Name Role Phone Poncho Wise MD Primary [...] topic Insurance MEDICARE PART A & B [facility] Care Teams Lvn Relationship Specialty Start Date End Date Poncho Wise MD [address] [address] PCP - General 12/03/21
--- OUTSIDE RECORDS SUMMARY | 2025-01-24 06:03 | XMS_ITS | Encounter Summary ---
Author Organization [facility] Address [address] [place] [address] Care Team Providers Care Ic Designer Gate Arrays Name Role Phone Poncho Wise MD Primary Care Provider [phone] Reason for Referral * Cardiac Stress Testing (Routine) - Closed Specialty Diagnoses / Procedures Referred By Alycia taylor Referred To Contact Cardiology Diagnoses Pre-syncope Palpitations Procedures Cardiac event monitor WI EXTERNAL PATIENT ACTIVATED ECG DOWNLOAD W RESULTS & INTERP <= 30 DAYS WI EXTERNAL PAT AUTO ACTIVATED ECG INCLUDING TRANSMISSION UP TO 30 DAYS WI EXTERNAL MOBILE CV TELEMETRY W ECG RECORDING <=30D PHYSCIAN REV & INTERP WI EXTERNAL MOBILE CV TELEMETRY W ECG RECORDING TECH SUPPORT UP TO 30 DAYS WI ECG UP TO 30 DAYS RECORDING Libby Dudley NP [address] [place] [address] Phone: tel: fax: Referral ID Status Reason Start Date Expiration Date Visits Re quested Visits Authorized [id number] Closed 01/11/2025 01/11/2026 1 1 * Imaging (Routine) - Authorized Specialty Diagnoses / Procedures Referred By Alycia taylor Referred To Contact Diagnoses Pre-syncope Procedures Vascular US duplex carotid bilateral Libby Dudley NP [address] [place] [address] Phone: tel: fax: [facility] Referral ID Status Reason Start Date Expiration Date V isits Requested Visits Authorized [id number] Authorized 01/11/2025 01/11/2026 1 1 Encounter Details Date Type Department Care Team (Late st Contact Info) Description 01/11/2025 Telephone [facility] - [address] [place] [address] Libby Dudley NP [address] [place] [address] Social History Tobacco Use Types Packs/Day Years [...] after one tests positive for COVID at [facility] and she will be able to come to the office without isolation next week. No inpt echo, pls get the echo outpt. Same goes for her carotid I spoke with Adrian and updated him. Thank you * Steffany Yang - 01/11/2025 2:14 PM EDT I called and spoke with Nataliia, she is still inpt at [facility], said she may get an Echo done [...] Description 01/24/2025 12:30 PM EDT Ancillary Procedure [facility] Cardiology [facility] - [address] [place] [address] 03/08/2025 9:40 AM EDT Office Visit [facility] [address] [place] [address] Moon Montalvo NP [address] [place] [address] [place] [address] 07/13/2025 9:10 AM EDT Office Visit [facility] Cardiology [facility] [address] [place] [address] Gracia Hernandez NP [address] [place] [address] [place] [address] Pending Results Name Type Priority Associated Diagnoses Date/Time Cardiac event monitor Cardiac Services Routine Pre-syncope Palpitations 01/17/2025 2:39 PM EDT Vascular US duplex carotid bilateral Vascular Ultrasound Routine Pre-syncope 01/21/2025 7:16 AM EDT Scheduled Orders Name Type Priority Associated Diagnoses Order Schedule Vascular US duplex carotid bilateral Vascular Ultrasound Routine Pre-syncope 1 Occurrences starting 01/11/2025 until 01/11/2026 Cardiac event monitor Cardiac Services Routine Pre-syncope Palpitations 1 Occurrences starting 01/11/2025 until 01/11/2026 documented as of this encounter Visit Diagnoses Diagnosis Pre-syncope- Primary Syncope and collapse Palpitations documented in this encounter Care Teams Ic Designer Gate Arrays Relationship Specialty Start Date End Date Poncho Wise MD [address] PCP - General 05/24/15 documented as of this encounter
--- OUTSIDE RECORDS SUMMARY | 2025-01-24 06:03 | XMS_ITS | Data Portability ---
Author Organization [facility], Main Office Address [address] [place] [address] Care Team Providers Care Safety Compliance Specialist Name Role Phone PONCHO BRITTON Primary Care Provider ROBIN TSANG OTHER DREA VILA Emergency Room Orderly ARLYN RODRIGUES Manager Of Training And Development DYLON MATTHEW Gynecological/Oncology [facility] Claim Administrator [facility] Quality Rn ZACK MEADOWS Orthopedic Surgeon [phone] DENNIS RINALDI Hasher Operator DANIEL LYNCH Claim Administrator [facility] Sleep [facility] ERA (RU BURGOS) Orthopedic Surgeon DIMA HELTON Urologist TYSON JEFFERY Set Up And Lay Out Inspector LUDY BUENROSTRO Insights Analyst JOSÉ ARGUELLES Neon Glass Blower Assessment No assessment recorded. Plan of Treatment Reminders Order Date Submit Date Provider Last Modified By Organization Details Last Modified Time Details Appointments FOLLOW UP 30MIN 2024 01:45P M oPncho Britton MD Not available Not available Not available AWV30 2024 10:15A Valente Britton MD Not available Not available Not available Lab vitami n D, 25-hyd mariaam, total, serum 2024 025 KARIN [facility] (Centralized [...] Go To The Location Of Their Choice, [id number] 12/06/2024 11:03:17 Referral neurol ogist referr al - pt is having recurr ent falls, memory defici ts and tremor s, referr ed to explor e moveme nt disord er 2024 025 [facility], [address], [place], [address], 01/10/2025 15:24:07 Procedures None record ed. Surgeries None record ed. Imaging MRI, brain, w/o contra st - more falls, memory proble ms and tremor s 2024 025 [email or web address] Not available 01/10/2025 14:25:04 MRI, brain, w/o contra st - rule out mass/n ew CVA 2024 025 [facility] ([facility]), [address], [place], [address], 01/17/2025 14:31:05 Medication Orders fluoxe merline 20 mg capsul e 2024 025 [facility]acy #0517, [address], [place], [address], 01/12/2025 11:37:42 valacy clovir 1 gram tablet 2024 025 [facility] #0517, [address], [place], [address], 12/20/2024 11:40:53 amoxic illin 875 mg-pot assium clavul anate 125 mg tablet 2024 025 [facility] [address], [place], [address], 12/29/2024 05:01:39 albute rol sulfat e HFA 90 mcg/ac tuatio n aeroso l inhale r 2024 025 [facility] #0517, [address], [place], [address], 12/06/2024 11:03:09 atorva statin 80 mg tablet 2024 025 [facility] #0517, [address], [place], [address], 12/06/2024 11:08:23 indapa mide 1.25 mg tablet 2024 025 [facility] #0517, [address], [place], [address], 12/06/2024 11:03:09 Patient TargetsNo targets recorded. Patient Instructions Encounter Date Encounter Id Patient Instructions Last Modified By Organization Details Last Modified Time 12/06/2024 [id number] type 2 diabetes: care instructions awychowski Not available 12/06/2024 11:03:07 high blood pressure: care instructions awychowski Not available 12/06/2024 11:03:07 learning about high blood pressure awychowski Not available 12/06/2024 11:03:07 12/15/2024 [id number] Acute Sinusitis: Care Instructions pmadden Not available 12/15/2024 14:30:47 saline nasal washes: care instructions pmadden Not available 12/15/2024 14:30:47 eustachian tube problems: care instructions pmadden Not available 12/15/2024 14:30:47 Follow up if no improvement or if symptoms worsen. pmadden Not available 12/15/2024 14:32:04 12/20/2024 [id number] high blood pressure: care instructions awychowski Not available 12/20/2024 12:13:27 learning about high blood pressure awychowski Not available 12/20/2024 12:13:27 At [facility] follow up visit, all current and discharge medications (OTC, herbal therapies, supplements) reviewed and reconciled with patient and or caregiver, including potential side effects, drug interactions, instructions, and the consequences of not taking medication. Reviewed potential barriers to medication adherence, such as side effects from medication or cost of medication. lisa Not available 12/20/2024 11:37:53 01/04/2025 [id number] At [facility] follow up visit, all current and discharge medications (OTC, herbal therapies, supplements) reviewed and reconciled with patient and or caregiver, including potential side effects, drug interactions, instructions, and the consequences of not taking medication. Reviewed potential barriers to medication adherence, such as side effects from medication or cost of medication. delgers Not available 01/04/2025 10:45:34 01/08/2025 [id number] orthostatic vitals* [email or web address] Not available 01/15/2025 10:59:19 [...] 70-99 above high normal Not Available [facility] ([facility]) [address] [place], [address], 12/21/2024 08:07:31 12/21/1912/21/2024 BASIC METAB OLIC PANEL (8) BUN 10 mg/dL 8-27 normal Not Available [facility] ([facility]) [address] [place], [address], 12/21/2024 08:07:31 12/21/1912/21/2024 BASIC METAB OLIC PANEL (8) creatinine 0.68 mg/dL 0.57-1 .00 normal Not Available [facility] ([facility]) [address] [place], [address], 12/21/2024 08:07:31 12/21/1912/21/2024 BASIC METAB OLIC PANEL (8) eGFR 86 mL/mi n/1.7 3 >59 normal Not Available [facility] ([facility]) [address] [place], [address], 12/21/2024 08:07:31 12/21/1912/21/2024 BASIC METAB OLIC PANEL (8) BUN/creatini ne ratio 15 12-28 normal Not Available [facility] ([facility]) [address] [place], [address], 12/21/2024 08:07:31 12/21/1912/21/2024 BASIC METAB OLIC PANEL (8) sodium 139 mmol/ L 134-14 4 normal Not Available [facility] ([facility]) [address] [place], [address], 12/21/2024 08:07:31 12/21/1912/21/2024 BASIC METAB OLIC PANEL (8) potassium 3.3 mmol/ L 3.5-5. 2 below low normal Not Available [facility] ([facility]) [address] [place], [address], 12/21/2024 08:07:31 12/21/1912/21/2024 BASIC METAB OLIC PANEL (8) chloride 98 mmol/ L 96-106 normal Not Available [facility] ([facility]) [address] [place], [address], 12/21/2024 08:07:31 12/21/1912/21/2024 BASIC METAB OLIC PANEL (8) carbon dioxide, total 23 mmol/ L 20-29 normal Not Available [facility] ([facility]) [address] [place], [address], 12/21/2024 08:07:31 12/21/1912/21/2024 BASIC METAB OLIC PANEL (8) calcium 9.6 mg/dL 8.7-10 .3 normal Not Available [facility] ([facility]) [address] [place], [address], 12/21/2024 08:07:31 12/16/19 25 ECG 12-le ad No observ ation record ed. [address], [place], [address], 12/20/2024 12:03:54 Result Notes None recorded. Problems Name Problem SNOMED Code Status Onset Date Resolution Date Notes Provider Name and Address Organization Details Recorded Time Thyroid function tests abnormal [id number] Completed 201204/12/2014 IMPRESSI ON: MILD SBNORMAL ITY, WILL REASSESS IN 4-6 WEEKS.; RECORDED 02/09/20 13 10:23AM BY JANET HUMPHRIES MA, ANNOTATI ON/ADDEN DUM Poncho Britton MD [address], [place], [address] , [facility] 6 09:37:22 Allergic rhinitis 19823271 Completed 201204/12/2014 RECORDED 02/09/20 13 10:23AM BY JANET HUMPHRIES MA, KEVIN ON/ADDTRISTAN DUM Poncho Britton MD [address], [place], [address] , [facility] 9 08:00:33 Arthropa thy 062108679 Completed 201302/05/2018 Poncho Britton MD [address], [place], [address] , [facility] 8 09:02:10 Patient status finding [id number] Completed 201204/12/2014 RECORDED 02/09/20 13 10:23AM BY JANET HUMPHRIES MA, ABDULKADIRATI ON/ADDEN DUM Poncho Britton MD [address], [place], [address] , [facility] 6 09:37:22 Asthma 139391669 Active 2013 Not Available [facility] 3 09:17:03 Cough 50899440 Completed 201204/12/2014 IMPRESSI ON: STORY AND QUALITY OF COUGH RAISES POSSIBLE CONCERN FOR PERTUSSI S. WILL DEFER CONFIRMA TORY TESTING AND TREAT EMPIRICA LLY. IF PERSISTA NT/WORSE WILL NEED FURTHER EVAL. ALSO PROVIDE SYMPTROM ATIC RX TO HELP AT NIGHT.; RECORDED 02/09/20 13 10:23AM BY JANET HUMPHRIES MA, KEVIN BLACK/EMIGDIO Britton MD [address] [facility] [address], [place], [address] , [facility] 6 09:37:22 History of depressi on 853569207 Completed 201304/12/2014 RECORDED 12/01/19 14 10:42AM BY JANET HUMPHRIES MA, KEVIN ON/EMIGDIO Britton MD [address], [place], [address] , [facility] 6 09:37:22 Type 2 diabetes mellitus without complica tion 722550558 Active 2013 Not Available [facility] 3 09:17:04 Diabetes mellitus 07481167 Completed 201304/12/2014 RECORDED 12/01/19 14 10:42AM BY JANET HUMPHRIES MA, KEVIN BLACK/EMIGDIO Britton MD [address] [facility] [facility] [address], [place], [address] , [facility] 6 09:37:22 Type 2 diabetes mellitus without complica tion 948308267 Completed 201204/12/2014 IMPRESSI ON: WELL CONTROLL ED, A1C AT GOAL. OPTHO EXAM UTD. CONTINUE CURRENT REGIMEN. ; RECORDED 07/02/20 13 11:44AM BY JANET HUMPHRIES MA, KEVIN BLACK/EMIGDIO Britton MD [address] [facility] [facility] [address], [place], [address] , [facility] 8 09:02:07 Dysuria 36729045 Completed 201104/12/2014 RECORDED 08/14/20 12 1:42PM BY JANET HUMPHRIES MA, ABDULKADIRATI ON/ADDEN DUM Poncho Britton MD [address] [facility] [address], [place], [address] , [facility] 6 09:37:22 Follow-u p encounte r Completed 201304/12/2014 RECORDED 12/01/19 14 10:41AM BY JANET HUMPHRIES MA, ABDULKADIRATI ON/ADDEN DUM Poncho Britton MD [address] [facility] [facility] [address], [place], [address] , [facility] 6 09:37:22 Influenz a vaccine needed 41158156883 06 Completed 201104/12/2014 RECORDED 08/07/20 12 1:48PM BY JANET HUMPHRIES MA, OFFICE VISIT Poncho Britton MD [address] [facility] [facility] [address], [place], [address] , [facility] 6 09:37:22 Gastroes ophageal reflux disease 887056662 Completed 201304/12/2014 RECORDED 12/01/19 14 10:42AM BY JANET HUMPHRIES MA, EKVIN ON/ADDEN DUM Poncho Britton MD [address] [facility] [address], [place], [address] , [facility] 7 09:04:21 Adult health examinat ion Completed 201204/12/2014 IMPRESSI ON: WILL UPDATE IMMUNIZA TION STATUS AND SCREEN BASED ON RISK FACTORS. REGULAR DENTAL CARE AND SEATBELT USE ADVISED. DISTRACT ED DRIVING DISCUSSE D. PAP/MAMM OPGRAM/O PHTO EXAM AND COLONOSC OPY UTD.; RECORDED 02/09/20 13 10:23AM BY JANET HUMPHRIES MA, KEVIN ON/ADDEN DUM Poncho Britton MD [address] [facility] [address], [place], [address] , [facility] 6 09:37:22 Pure hypercho lesterol emia 025334157 Active 2013 Not Available [facility] 3 09:17:04 Hypercho lesterol emia 30603400 Completed 201304/12/2014 RECORDED 12/01/19 14 10:42AM BY JANET HUMPHRIES MA, KEVIN ON/EMIGDIO Britton MD [address], [place], [address] , [facility] 6 09:37:22 Essentia l hyperten dexter 90178099 Active 2013 Not Available [facility] 3 09:17:05 Essentia l hyperten dexter 47917060 Completed 201204/12/2014 IMPRESSI ON: WELL CONTROLL ED, CONTINUE CURRENT REGIMEN. LOW NA DIET, REGULAR XERCISE AND WT LOSS ADVISED. ; RECORDED 07/02/20 13 11:44AM BY JANET HUMPHRIES MA, KEVIN ON/EMIGDIO Britton MD [address] [facility] [address], [place], [address] , [facility] 6 09:37:22 Knee pain Completed 201104/12/2014 RECORDED 08/14/20 12 1:42PM BY JANET HUMPHRIES MA, ANNOTATI ON/EMIGDIO Britton MD [address] [facility] [address], [place], [address] , [facility] 6 09:37:22 Laborato ry procedur e performe d 531386135 Completed 201304/12/2014 RECORDED 12/01/19 14 10:42AM BY JANET HUMPHRIES MA, KEVIN ON/EMIGDIO Britton MD [address] [facility] [address], [place], [address] , [facility] 6 09:37:22 Leukocyt osis 723301716 Completed 201304/12/2014 RECORDED 12/01/19 14 10:42AM BY JANET HUMPHRIES MA, ANNOTATI ON/EMIGDIO Britton MD [address], [place], [address] , [facility] 6 09:37:22 Screenin g for malignan t neoplasm of breast Completed 201304/12/2014 RECORDED 12/01/19 14 10:42AM BY JANET HUMPHRIES MA, ANNOTATI ON/ADDTRISTAN Britton MD [address], [place], [address] , [facility] 6 09:37:22 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 Not Available [facility] 3 09:17:03 [facility] 052051196 Active 2013 Not Available [facility] 3 09:17:03 Kidney stone 57247029 Active 2012 Shaker Not Available [facility] 3 09:17:05 Obesity 346555329 Completed 201301/11/2016 RECORDED 12/02/19 14 9:13AM BY JANET HUMPHRIES MA, OFFICE VISIT Dayana barney, [facility] 9 12:10:43 Obstruct pancho sleep apnea syndrome 99216917 Active 2013 CPAP 5-15 cm H2O, has been off of CPAP Not Available [facility] 3 09:17:05 Osteoart hritis of knee 945337094 Active 2013 S/P left TKR-KRUS HELL Not Available [facility] 3 09:17:03 Osteoart hritis of knee 238278969 Completed 201204/12/2014 IMPRESSI ON: SET FOR LEFT TKR [address] PADILLA .; RECORDED 08/13/20 13 10:44AM BY BONNIE WALKER MA, ANNOTATI ON/ADDEN CHAPARRO Britton MD [address], [place], [address] , [facility] 9 09:31:00 Disorder of bone and articula r cartilag e 885584341 Completed 201301/16/2017 IMPRESSI ON: ADEQUATE DIETARY CA/VIT D INTAKE ADVISED WELL REGULAR WEIGHT BEARING EXERCISE .; RECORDED 12/02/19 14 9:13AM BY JAENT HUMPHRIES MA, OFFICE VISIT Poncho Britton MD [address], [place], [address] , [facility] 7 09:04:38 Pre-surg hazel evaluati on Completed [...] 13 10:44AM BY BONNIE WALKER MA, ANNOTATI ON/ CHAPARRO Britton MD [address], [place], [address] , [facility] 6 09:37:22 Gastroes ophageal reflux disease 052179149 Active 2013 Not Available [facility] 3 09:17:03 Administ ration of diphther ia and tetanus vaccine Completed 201304/12/2014 RECORDED 12/01/19 14 10:41AM BY JANET HUMPHRIES MA, ANNOTATI ON/EMIGDIO Britton MD [address], [place], [address] , [facility] 6 09:37:22 Urinary tract infectio us disease 00718605 Completed 201304/12/2014 RECORDED 12/02/19 14 9:43AM BY PONCHO Mancilla MD, ANNOTATI ON/ADDEN DUM Poncho Britton MD [address], [place], [address] , [facility] 9 09:29:27 Type 2 diabetes mellitus 66007913 Completed 01/11/2016 Poncho Britton MD [address], [place], [address] , [facility] 6 09:37:22 Hypothyr oidism 13654216 Active Not Available [facility] 3 09:17:04 Body mass index 30+ - obesity 486041531 Completed 03/13/2020 Janet Humphries MA null, [facility] 0 08:32:02 Osteopen ia 814458442 Completed 02/05/2018 Poncho Britton MD [address], [place], [address] , [facility] 1 22:33:58 Liver enzymes outside referenc e range 762119631 Completed 02/05/2018 Poncho Britton MD [address], [place], [address] , [facility] 8 09:00:56 Ventricu lar prematur e beats 74841029 Active 2014 noted on sleep study Not Available [facility] 3 09:17:03 Dry skin 66749919 Completed 01/11/2016 Poncho Britton MD [address] [facility] [address], [place], [address] , [facility] 6 09:37:22 Palpitat ions 02730866 Completed 01/11/2016 Poncho Britton MD [address] [facility] [address], [place], [address] , [facility] 6 09:37:22 Dizzines s 219292773 Completed 01/11/2016 Poncho Britton MD [address], [place], [address] , [facility] 6 09:37:22 Bradycar amy 21544475 Completed 01/16/2017 Poncho Britton MD [address], [place], [address] , [facility] 7 09:05:02 Mitral valve regurgit ation 72639946 Active mod Not Available [facility] 3 09:17:05 Diastoli c dysfunct ion 6333167 Active 2014 Not Available [facility] 3 09:17:04 Low back pain 495508356 Completed 01/16/2017 Poncho Britton MD [address], [place], [address] , [facility] 7 09:04:48 Advance directiv farooq ramsey d with patient 173983090 Completed 03/13/2020 Poncho Britton MD [address], [place], [address] , [facility] 0 08:55:10 Paronych ia of finger 655746409 Completed 201607/27/2018 thumb Poncho Britton MD [address], [place], [address] , [facility] 8 10:28:57 Cholecys titis 55311991 Completed 201602/05/2018 Removal Reason: s/p removal Poncho Britton MD [address], [place], [address] , [facility] 8 08:59:53 Obesity 810890667 Com[facility] 201602/05/2018 [facility] 12:10:43 Insomnia disorder related to known organic factor 55352364 Active 2017 Not Available [facility] 3 09:17:05 Osteoart hritis of joint of left hand 30041042886 9102 Active 2017 Not Available [facility] 3 09:17:04 Osteoart hritis 279085527 Active 2017 Not Available [facility] 3 09:17:04 Divertic ular disease 075758033 Active 2017 Not Available [facility] 3 09:17:04 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 Not Available [facility] 3 09:17:04 Calcinos is 7454788 Completed 201703/13/2020 Poncho Britton MD [address] [address], [place], [address] , [facility] 0 08:58:00 Allergic rhinitis 26426413 Active 2018 Not Available [facility] 3 09:17:05 Urinary tract infectio us disease 85980294 Completed 201803/11/2019 Poncho Britton MD [address] [facility] [address], [place], [address] , [facility] 9 09:29:27 Vulvovag inal disease 94060498 Completed 201803/11/2019 Poncho Britton MD [address] [facility] [address], [place], [address] , [facility] 9 09:29:21 Pain in urethra 3616610 Completed 201803/11/2019 Poncho Britton MD [address] [facility] [address], [place], [address] , [facility] 9 09:29:15 Atrophic vaginiti s 14241414 Active 2018 Not Available [facility] 3 09:17:05 Obesity 107638594 Active 2018 Not Available [facility] 3 09:17:04 Glaucoma suspect Completed 201805/21/2022 Poncho Britton MD [address] [facility] [address], [place], [address] , [facility] 2 15:10:57 Esotropi a 07931575 Active 2018 Not Available [facility] 3 09:17:03 Dilatati on of aorta 08340771 Active 2019 3.7cm Not Available [facility] 3 09:17:04 Osteoart hritis of joint of hand 54174262 Active 2019 Not Available [facility] 3 09:17:03 Nephroca lcinosis 71320706 Active 2019 Not Available [facility] 3 09:17:05 Internal hemorrho ids 38210414 Active 2019 Not Available [facility] 3 09:17:05 Ischemic colitis 18235969 Active 2019 Not Available [facility] 3 09:17:04 Suspecte d COVID-19 953452325 Completed 03/05/2021 Removal Reason: Problem added by user [email or web address] from the COVID-19 watch flag Rere barney, [facility] 1 10:52:02 Hypokale aurora 08568240 Completed 202001/06/2023 Poncho Britton MD [address] [facility] [address], [place], [address] , [facility] 3 13:26:41 Total bilirubi n above referenc e range 63037009648 9108 Completed 202001/06/2023 Poncho Britton MD [address] [facility] [address], [place], [address] , [facility] 3 13:27:24 Osteopen ia 433613076 Active 2020 Not Available [facility] 3 09:17:04 Osteoart hritis of right knee joint 68240508809 9100 Active 2020 end stage Not Available [facility] 3 09:17:04 Major depressi on single episode, in partial remissio n 57922549 Active 2021 Not Available [facility] 3 09:17:05 Open wound of toe of right foot 82995998123 198806 Completed 202105/21/2022 Poncho Britton MD [address] [facility] [address], [place], [address] , [facility] 2 15:11:24 Hyperten dexter monitori ng status 106823543 Active 2021 Accuheal th- enrolled Not Available [facility] 3 09:17:04 Coronary atherosc lerosis 844228711 Active 2021 Not Available [facility] 3 09:17:04 Calcific ation of coronary artery 790185791 Active 2021 mild LAD Not Available [facility] 3 09:17:04 Anxiety 57942984 Active 2021 Not Available [facility] 3 09:17:05 Arterios clerotic vascular disease 08138105 Active 2021 Not Available [facility] 3 09:17:05 Small vessel cerebrov ascular disease 496724424 Active 2021 Not Available [facility] 3 09:17:04 Multiple lacunar infarcts 328974473 Active 2021 Not Available [facility] 3 09:17:04 Periodic limb movement disorder 662856415 Active 2021 Not Available [facility] 3 09:17:04 Sensorin eural hearing loss of bilatera l ears 070113108 Active 2022 Not Available [facility] 3 09:17:03 Family history of malignan t melanoma 762209254 Active 2022 Not Available [facility] 3 09:17:04 Retrolis thesis 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 2022 C5/C6 Not Available [facility] 3 09:17:04 Sensorin eural hearing loss 83301038 Active 2023 bilatera l, right >left Poncho Britton MD [address], [place], [address] , [facility] 4 06:48:59 Constipa tion 78544173 Active 2023 Poncho Britton MD [address], [place], [address] , [facility] 4 21:29:26 Cerebrov ascular disease 13523845 Active 2023 Poncho Britton MD [address], [place], [address] , [facility] 4 06:58:34 Aneurysm of thoracic aorta 119134897 Active 2023 Poncho Britton MD [address], [place], [address] , [facility] 4 10:32:12 Incomple te right bundle branch block 071051099 Active 2024 Poncho Britton MD [address], [place], [address] , [facility] 5 13:16:28 Left anterior fascicul ar block 87995380 Active 2024 Poncho Britton MD [address], [place], [address] , [facility] 5 13:16:43 Acute sinusiti s 12722887 Completed 202401/08/2025 MAY MONROE MD [address], [place], [address] , [facility] 08:38:39 Problem Notes None recorded. Procedures Surgical History Date Name Laterality Status Provider Name and Address Organization Details Recorded Time 025 injection of cortisone completed Evelia ramires [facility] [facility] 11/06/2024 11:20:15 024 Diabetic Foot Exam (Monofilament) completed Poncho Britton MD [address], [address], [facility] 06/07/2024 10:24:21 023 echocardiography completed Poncho Britton MD [address], [address], [facility] 11/03/2023 15:05:36 023 Diabetic Foot Exam (Monofilament) completed Poncho Britton MD [address], [address], [facility] 06/03/2023 14:50:55 022 prosthetic total arthroplasty of right shoulder completed Poncho Britton MD [address], [address], [facility] 01/06/2023 13:14:19 022 Diabetic Foot Exam (Monofilament) completed Janet Humphries MA [facility] 05/21/2022 14:17:34 022 incision of ingrown nail completed Poncho Britton MD [address], [address], [facility] 11/11/2021 11:22:13 022 radionuclide imaging of perfusion of myocardium under exercise stress completed Poncho Britton MD [address], [address], [facility] 11/28/2021 07:55:28 021 Most Recent Bone Density completed Olinda Miranda MA [facility] 06/07/2024 09:53:03 021 Advanced Care Planning completed Poncho Britton MD [address] [facility] [address] [facility], [place], [address], [facility] 03/15/2021 10:32:38 021 Diabetic Foot Exam (Monofilament) completed Poncho Britton MD [address], [address], [facility] 03/30/2021 10:17:29 020 colonoscopy completed Poncho Britton MD [address] [facility] [address] [facility], [place], [address], [facility] 07/31/2020 13:00:40 020 Mini-Cog Test completed Janet Humphries MA [facility] 03/13/2020 08:35:20 020 Diabetic Foot Exam (Monofilament) completed Janet Humphries MA [facility] 03/13/2020 08:35:05 020 Echo transthoracic completed Poncho Britton MD [address] [address], [place], [address], [facility] 11/02/2019 21:26:40 019 Dxa bone density pamela vrt fx completed Janet Humphries MA [facility] 03/13/2020 08:30:35 019 Most Recent Mammogram completed Taylor Lamar [facility] 03/23/2019 16:20:12 019 Mammogram Screening completed Taylor Lamar [facility] 03/23/2019 16:20:07 019 Mini-Cog Test completed Evelia ramires MA [facility] 03/11/2019 09:09:02 018 Mini-Cog Test completed Judith Schofield MA [facility] 02/05/2018 08:36:39 018 Diabetic Foot Exam (Monofilament) completed Poncho Britton MD [address], [place], [address], [facility] 02/08/2018 18:41:18 017 Cholecystectomy completed Samia Arriagaellano [facility] 08/15/2017 15:33:43 017 Fall Risk Assessment completed Janet Humphries MA [facility] 01/16/2017 08:37:00 017 Mini-Cog Test completed Janet Humphries [facility] 01/16/2017 08:37:56 016 Fall Risk Assessment completed Janet Humphries MA [facility] 01/11/2016 09:12:15 016 Mini-Cog Test completed Janet Humphries [facility] 01/11/2016 09:29:00 016 Advanced Care Planning completed Janet Humphries MA [facility] 01/11/2016 09:12:15 015 Date of Last Colonoscopy completed Janet Humphries MA [facility] 01/11/2016 09:12:14 015 Colonoscopy completed Janet Humphries MA [facility] 02/02/2015 10:44:15 015 Fall Risk Assessment completed Janet Humphries MA [facility] 10/13/2014 09:44:22 015 Mini-Cog Test completed Janet Humphries MA [facility] 10/13/2014 09:44:41 014 Cystoscopy and treatment completed Poncho Britton MD [address], [place], [address], [facility] 08/17/2019 22:34:32 014 completed Janet Humphries MA [facility] 06/08/2014 09:05:45 013 Knee Surgery completed Poncho Britton MD [address], [place], [address], [facility] 10/13/2014 09:55:41 013 Joint Replacement completed Janet Humphries MA [facility] 05/21/2022 14:14:56 010 Date of Last Pap Smear completed Janet Humphries MA [facility] 01/16/2017 08:35:58 009 completed Janet Humphries MA [facility] 06/08/2014 09:05:45 988 Hysterectomy completed Poncho Britton MD [address] [facility] [address], [place], [address], [facility] 01/16/2017 09:10:48 973 Hemorrhoidectomy completed Janet Humphries MA [facility] 05/21/2022 14:14:56 957 Appendectomy completed Janet Humphries [facility] 05/21/2022 14:14:56 Carpal tunnel surgery completed Poncho Britton MD [address] [facility] [address] [facility], [place], [address], [facility] 01/16/2017 09:10:37 Hemorrhoidectomy completed Janet aviles MA [facility] 05/21/2022 14:14:56 Appendectomy completed Janet Humphries MA [facility] 05/21/2022 14:14:56 Imaging Results Imaging Date Name Status LastModified by Organiz ation Details LastModified Time 12/15/2024 ECG 12-lead completed [address], [address], 12/20/2024 12:03:54 Procedure Notes None recorded. Medical Equipment None Reported. Allergies Allergen ID Allergen Name Allergen Category Reaction Reaction Severity Criticality Documentation Date Start Date Code Code System Note Provider Name and Address Organization Details Recorded Time 07724 lamotrigi ne medicatio n dizziness moderate Not available 12/20/20242024 59309 RxNorm CURLY Powers [facility] 11:38:57 Medications Name Sig Start Date [...] Not Available Not Available fluarix quadrival ent 2649-8297 .5 ml elise active Not Available Not [...] completed Not Available Not Available Not Available nystatin 100,000 unit/mL oral suspensio n SWISH AND SPIT WITH 6 ML FOUR TIMES A DAY UNTIL FINISHED active Not Available Not Available No t Available prednison e 10 mg tablet 03/11 [...] e 137 mcg (0.1 %) nasal spray [place] 2 sprays as needed by nasal route [...] e 50 mcg/actua tion nasal spray,josh pension [place] 2 sprays every day by intranas al [...] Not Available No t Available Fluzone High-Dose 0200-7004 (PF) 180 mcg/0.5 mL intramusc ular syringe 07/24 completed Not Available Not Available Not Available Shingrix (PF) 50 mcg/0.5 mL intramusc ular suspensio n, kit 06/03 completed Not Available Not Available Not Available Fluad Quad 1941-4241 (65yr up)(PF) 60 mcg (15 mcg x [...] Updated DateTime 5 152.4 cm 30.3 kg/m2 37404.8 2 g 98 /min 98 % 98 % 97.9 [degF] 146 mm[Hg] 79 mm[Hg] [facility] 5 10:36:25 Date Recorded Body height Body mass index (BMI) Body weight Oxygen saturation Oxygen saturation in Arterial blood by Pulse oximetry Heart rate Body temperature Systolic blood pressure Diastolic blood pressure Provider Name and Address Organization Details Last Updated DateTime 5 152.4 cm 31 kg/m2 40938.3 9 g 97 % 97 % 91 /min 98 [degF] 119 mm[Hg] 71 mm[Hg] Judith Schofield MA [facility] 5 13:17:41 Date Recorded Body height Body mass index (BMI) Body weight Heart rate Oxygen saturation Oxygen saturation in Arterial blood by Pulse oximetry Body temperature Systolic blood pressure Diastolic blood pressure Provider Name and Address Organization Details Last Updated DateTime 5 152.4 cm 29.9 kg/m2 11777.6 3 g 98 /min 96 % 96 % 98 [degF] 116 mm[Hg] 76 mm[Hg] [facility] 5 12:47:04 Date Recorded Body height Body [...] Updated DateTime 5 152.4 cm 29.3 kg/m2 26528.8 6 g 97 % 97 % 101 /min 97.8 [degF] 111 /min 98 % 98 % 93 mm[Hg] 64 mm[Hg] 81 mm[Hg] 50 mm[Hg] uJdith Schofield MA [facility] 10:18:38 Date Recorded Body height Provider Name an d Address Organization Details Last Updated DateTime 01/21/2025 152.4 cm Tika Santana MA MA [facility] 01/21/2025 13:33:00 Social History Question Answer Notes LastModified by Organizat ion Details LastModified Time Tobacco Smoking Status Never Smoker Not Available [facility] 08/01/2020 03:36:42 Do You Have An Advance Directive? Yes HCP/ Son-Adrian Dtr-Kamini [email or web address] Information not available 06/07/2024 What Is Your Level Of Alcohol Consumption? Occasional [id number] Information not available 08/01/2020 Is Blood Transfusion Acceptable In An Emergency? Yes [id number] Information not available 08/01/2020 What Is Your Level Of Caffeine Consumption? Moderate 1-2 Cup Of Coffee Daily Information not available 06/03/2023 How Much Tobacco Do You Chew? None [id number] Information not available 08/01/2020 Are You Currently Employed? No Retired [id number] Information not available 08/01/2020 What Type Of Diet Are You Following? REGULAR Information not available 03/15/2021 Which Illicit Or Recreational Drugs Have You Used? None [id number] Information not available 08/01/2020 Do You Or Have You Ever Used E-cigarettes Or Vape? Never Used Electronic Cigarettes Information not available 08/20/2022 What Is Your Occupation? [employer] [id number] Information not available 08/01/2020 Single Or Multi-level Home/work? Single Level Home Information not available 08/20/2022 Live Alone Or With Others? Alone In ( [place] [facility] Information not available 06/07/2024 Do You Take [...] Or Greater Than 100 Degrees Fahrenheit? Yes [email or web address] Information not available 06/30/2020 Are You Or [...] How Many Children Do You Have? 6 [id number] Information not available 08/01/2020 Difficulty Reading? No Information not available 08/20/2022 Do You Use Your Seat Belt Or Car Seat Routinely? Yes Information not available 05/21/2022 Seat Belts Used Routinely Yes Information not available 08/20/2022 Are You Sexually Active? No [id number] Information not available 08/01/2020 Smoke Alarm In Home Yes Information not available 08/20/2022 Do You Have Smoke And Carbon Monoxide Detectors In Your Home? Yes Information not available 05/21/2022 At What Age Did You Start Smoking Tobacco? 1 [id number] Information not available 08/01/2020 Are You Passively Exposed To Smoke? No Information not available 10/13/2014 Do You Or Have You Ever Used Smokeless Tobacco? Never Used Smokeless Tobacco [id number] Information not available 08/01/2020 How Much Tobacco Do You Smoke? No [id number] Information not available 08/01/2020 Do You Use Any Illicit Or Recreational Drugs? No Information not available 08/20/2022 Do You Use Sunscreen Routinely? No Information not available 05/21/2022 How Many Years Have You Smoked Tobacco? 0 [id number] Information not available 08/01/2020 Difficulty Watching TV? [...] to care for yourself? Yes with dementia [id number] Information not available 08/01/2020 Do you have difficulty dressing or bathing? No Information not available 08/20/2022 What is your exercise level? Moderate walking [email or web address] Information not available 06/03/2023 Mental Status None [...] available 09:36:20 Maternal Grandmother Cerebrovascu lar accident Not available 08 / 13:54:27 Paternal Aunt Malignant tumor of breast liat Not available 01/10 09:42:52 Brother Hyperchkia josue Not available 01/10 09:42:52 Brother Harmful pattern of use of alcohol [email or web address] Not available 05/21 13:54:27 Sister Ignacia josue Not available 01/10 09:42:52 Sister Harmful pattern of use of alcohol liat Not available 01/16 09:07:30 Son Coronary arterioscler [...] high-dose, trivalent, PF 4 completed Edita Aguilera [facility] 09/17/2023 09:57:21 Influenza, high-dose, trivalent, PF 5 completed Olinda Miranda MA null, [facility] 11/03/2023 14:21:34 Influenza, high-dose, trivalent, PF 6 completed Edita Aguilera null, [facility] 09/17/2023 09:57:21 Influenza, high-dose, trivalent, PF 7 completed Edita Aguilera null, [facility] 09/17/2023 09:57:21 Influenza, split virus, quadrivalent, preservative 8 completed Olinda Miranda MA null, [facility] 11/03/2023 14:21:34 Influenza, high-dose, trivalent, PF 9 completed Edita barney, [facility] 09/17/2023 09:57:21 zoster recombinant 9 completed Olinda Miranda MA null, [facility] 11/03/2023 14:21:34 Influenza, split virus, quadrivalent, preservative 0 completed Olinda Miranda MA null, [facility] 11/03/2023 14:21:34 COVID-19, mRNA, LNP-S, PF, 100 mcg/0.5mL dose or 50 mcg/0.25mL dose 1 completed Edita barney, [facility] 09/17/2023 09:57:21 COVID-19, mRNA, LNP-S, PF, 100 mcg/0.5mL dose or 50 mcg/0.25mL dose 1 completed Edita barney, [facility] 09/17/2023 09:57:21 zoster recombinant 0 completed Janet Humphries MA null, [facility] 03/15/2021 10:16:16 Influenza, split virus, quadrivalent, preservative 1 completed Olinda Miranda MA null, [facility] 11/03/2023 14:21:34 Influenza, adjuvanted, quadrivalent, PF 0 completed Editaabbey Aguilera null, [facility] 09/17/2023 09:57:21 zoster recombinant 9 completed Edita Aguilera null, [facility] 09/17/2023 09:57:21 Influenza, high-dose, trivalent, PF 8 completed Edita Aguilera null, [facility] 09/17/2023 09:57:21 Influenza, high-dose, quadrivalent, PF 1 completed Edita Aguilera null, [facility] 09/17/2023 09:57:21 Influenza, split virus, quadrivalent, PF 5 completed Edita Aguilera null, [facility] 09/17/2023 09:57:21 COVID-19, mRNA, LNP-S, PF, 100 mcg/0.5mL dose or 50 mcg/0.25mL dose 2 completed Edita Aguilera null, [facility] 09/17/2023 09:57:21 Pneumococcal conjugate PCV 13 5 completed Edita Aguilera null, [facility] 09/17/2023 09:57:21 COVID-19, mRNA, LNP-S, bivalent, PF, 30 mcg/0.3 mL dose 2 completed Editaabbey Gallonett null, [facility] 09/17/2023 09:57:21 Influenza, high-dose, quadrivalent, PF 2 completed Edita Aguilera null, [facility] 09/17/2023 09:57:21 zoster recombinant 3 completed Olinda Miranda MA null, [facility] 11/03/2023 14:21:34 Influenza, high-dose, quadrivalent, PF 3 completed Edita Aguilera null, [facility] 09/17/2023 09:57:21 RSV, recombinant, protein subunit RSVpreF, adjuvant reconstituted, 0.5 mL, PF 3 completed CURLY Powers, [facility] 11/03/2023 14:21:34 COVID-19, mRNA, LNP-S, PF, 50 mcg/0.5 mL 3 completed Edita barney, [facility] 09/17/2023 09:57:21 pneumococcal polysaccharide PPV23 8 completed Edita barney, [facility] 09/17/2023 09:57:21 zoster live 2 completed Edita barney, [facility] 09/17/2023 09:57:21 Influenza, split virus, trivalent, preservative 2 completed Edita barney, [facility] 09/17/2023 09:57:21 Influenza, split virus, trivalent, preservative 3 completed Edita barney, [facility] 09/17/2023 09:57:21 Tdap 3 completed Edita barney, [facility] 09/17/2023 09:57:21 Td (adult), 2 Lf tetanus toxoid, preservative free, adsorbed 3 completed Poncho Britton MD [address], [address], [facility] 06/18/2023 15:09:57 Influenza, high-dose, trivalent, PF 4 completed Poncho Britton MD [address], [address], [facility] 06/07/2024 10:30:07 Past Encounters Encounter ID Performer Location Encounter Start Date Encounter Closed Date Diagnosis/Indication Diagnosis SNOMED-CT Code Diagnosis ICD10 Code Diagnosis Note [id number] Janet Humphries MA Main Office [address] [address] [place] [address] 06/08/2014 09:09:31 06/08/2014 09:58:47 Type 2 diabetes mellitus [id number] Pure hypercholesterolemia 522889732 Essential hypertension 73778555 Hypothyroidism 70192214 Skin finding 508934697 [id number] Main Office [address] [address] [place] [address] 10/13/2014 09:24:27 10/13/2014 10:42:23 Adult health examination 621127263 Will update immunizati on status and screen based on risk factors. Regular dental and ophtho care advised as well as seatbelt and sunscreen use. Distracted driving discussed. Breast and cervical cancer screening are current. Due for f/u colonoscop y. Currently demonstrat es low risk for falls and no significan t cognitive decline. Advance directives in place. Body mass index 30+ - obesity 064539146 Osteopenia 958072906 Reg ular weight bearing exercise advised as well as adequate dietaery Ca and vit D intake. Obstructiv e sleep apnea syndrome 66949175 Using orthotic. Having symptoms. Will assess for treatment effectiven ess. Essential hypertension 48191447 Hypothyroidism 43564565 Pure hypercholesterolemia 035598752 Administra tion of pneumococcal vaccine 44277149 Kidney stone 00987596 Screening for malignant neoplasm of colon 205368878 Type 2 amy betes mellitus 25143161 [id number] Poncho Britton MD Main Office [address] [address] [place] [address] 10/27/2014 08:13:01 10/27/2014 08:51:58 Gastroesophageal reflux disease 312501015 Episode sounds like possible aspiration pneumoniti s [...] sleep while starting PPI therapy. Call inb/worse. [id number] Main Office [address] [address] [place] [address] 02/02/2015 10:32:58 02/02/2015 11:25:15 Type 2 diabetes mellitus without complication 101146468 Well controlled . Continue current regimen. Ophtho exam utd. Liver enzy mes outside reference range 453468152 Improved/a lmost normal with better diet and exercise habits. Will follow. Pure hypercholesterolemia 482675516 Obstructiv e sleep apnea syndrome 71172037 Using orthotic with good results, continue. Ventricula r premature beats 76575568 Incidental finding on sleep study. Pt asymptomat ic. Will check labs and follow clinically for now. Dry skin 59767967 [id number] Poncho Britton MD Main Office [address] [address] [place] [address] 03/28/2015 12:39:56 03/28/2015 13:41:59 Dizziness 542460060 this may be secondary to stress/anx iety from taking care of her ill . No changes in meds and she will keep her appointmen t with cardiology . [id number] Poncho Britton MD Main Office [address] [address] [place] [address] 04/28/2015 08:16:17 04/28/2015 09:05:43 Essential hypertension 80644753 Type 2 amy betes mellitus without complication 855177747 Well controlled . Continue current regimen. Ophtho exam utd. Pure hypercholesterolemia 889601403 Reassess following statin dose titration. Palpitations 76389442 Wi ll check holter to see if paroxysmal afib might be a factor. If unremarkab le will defer further evaluation to cardiology . Asthma 423254001 Obstructiv e sleep apnea syndrome 94389392 Wants to explore other treatment options. Pt will schedule f/u with sleep med services. [id number] Janet Humphries MA Main Office [address] [address] [place] [address] 05/04/2015 10:24:14 05/04/2015 10:57:51 Palpitations 62286708 Will check holter to see if paroxysmal afib might be a factor. If unremarkab le will defer further evaluation to cardiology . [id number] Main Office [address] [address] [place] [address] 05/05/2015 11:17:11 05/05/2015 12:03:35 [id number] Main Office [address] [address] [place] [address] 06/15/2015 15:01:46 06/15/2015 16:16:45 Low back pain 519106270 Suspect piriformis syndrome likely from recent prolonged car travel. Will try PT, continue OTC NSAIDs and muscle relaxant PRN to help with therapy. Pt advised to call inb/worse or if new symptoms develop. Pt advised of medication side effects and not to drive or work while on them. [id number] Poncho Britton MD Main Office [address] [facility] [address] [place] [address] 09/14/2015 08:17:08 09/14/2015 08:50:13 Type 2 diabetes mellitus 67268655 E11.9 Overdue for labs. Will have done nora. Has been off of metformin. Essential hypertension 22604551 I10 Pure hypercholesterolemia 612931947 E78.0 Reassess following statin dose titration. [id number] Poncho Britton MD Main Office [address] [address] [place] [address] 11/27/2015 15:10:47 12/05/2015 11:48:44 [id number] Poncho Britton MD Main Office [address] [address] [place] [address] 01/11/2016 08:53:42 01/11/2016 09:59:39 Adult health examination 216544614 Z00.01 Will update immunizati on status and screen based on risk factors. Regular dental and ophtho care advised as well as seat belt and sunscreen use. Distracted driving discussed. Breast, cervical and colon cancer screening are current. Currently demonstrat es low risk for falls and no significan t cognitive decline. Advance directives in place. Advance di rective discussed with patient 470132065 Z71.89 Body mass index 30+ - obesity 800224668 Z68.33 Osteopenia 137081006 M85 .80 Regular weight bearing exercise advised as well as adequate dietaery Ca and vit D intake. Due for f/u BND. Obstructiv e sleep apnea syndrome 71077707 G47.33 Using CPAP. Having symptoms. Will assess for treatment effectiven ess. Essential hypertension 50266841 I10 Well controlled , continue current regimen. Hypothyroidism 26703761 E03.9 Pure hypercholesterolemia 971844289 E78.0 Type 2 amy betes mellitus 86391215 E11.9 Has been off of meds. Will follow. [id number] Poncho Britton MD Main Office [address] [address] [place] [address] 07/24/2016 09:38:02 07/24/2016 10:22:37 Type 2 diabetes mellitus without complication 068744661 E11.9 Will recheck A1C in Mario. If > or equal to 7 will resume metformin. Ophtho exam utd. Essential hypertension 65612649 I10 Pure hypercholesterolemia 515705460 E78.01 Reassess following statin dose titration. Achilles tendinitis 1165 4001 M76.61 Heel inserts advised. Refer to podiatry or PT if persistent /worse. [id number] Poncho Britton MD Main Office [address] [address] [place] [address] 08/01/2016 14:15:03 08/01/2016 14:53:47 Strain of muscle of chest wall 383788357 S29.011A Likely muscular strain. Continue otc NSAID and try muscle relaxant PRN. Adequate hydration advised as well as to call if not slowly improving or worse. Strain of right trapezius muscle 9507705829 3212340 S29.012A [id number] Poncho Britton MD Main Office [address] [address] [place] [address] 01/16/2017 08:25:11 01/16/2017 09:35:14 Adult health examination 035172550 Z00.00 Immunizati on status and screening utd based on risk factors. Regular dental and ophtho care advised as well as seat belt and sunscreen use. Distracted driving discussed. Breast, cervical and colon cancer screening are current. Currently demonstrat es low risk for falls and no significan t cognitive decline. Advance directives in place. Liver enzy mes outside reference range 477737554 R94.5 Improved/a lmost normal with better diet and exercise habits. Will follow. Body mass index 30+ - obesity 690977273 Z68.30 E66.9 Type 2 amy betes mellitus without complication 266572713 E11.9 Will recheck A1C in [place]. If > or equal to 7 will resume metformin. Ophtho exam utd. [id number] Poncho Britton MD Main Office [address] [address] [place] [address] 08/08/2017 09:46:07 08/08/2017 10:25:05 [id number] Poncho Britton MD Main Office [address] [address] [place] [address] 09/11/2017 12:40:13 09/11/2017 13:47:13 Cholecystitis 13108132 K81.9 s/p cholescyst ectomy doing well. Loss of hair 651624753 L 65.9 Will screen for common metabolic etiologies . If normal will ask derm for opinion. Type 2 amy betes mellitus without complication 887929224 E11.9 Due for reassessme nt. Essential hypertension 92123634 I10 Dysplastic nevus of skin 908235332 D22.9 left shoulder suspicious for BCC. Pt to schedule f/u with Dr. Vila on this and hair loss. Body mass index 30+ - obesity 239415461 Z68.39 Target weight 130. May need note for wt watchers. Obesity 617296031 E66.9 [id number] Poncho Britton MD Main Office [address] [address] [place] [address] 10/27/2017 09:03:08 10/27/2017 09:31:17 [id number] Poncho Britton MD Main Office [address] [address] [place] [address] 02/05/2018 08:23:27 02/05/2018 09:36:55 Adult health examination 670269787 Z00.00 Immunizati on status and screening utd based on risk factors. Regular dental and ophtho care advised as well as seat belt and sunscreen use. Distracted driving discussed. Breast, cervical and colon cancer screening are current. Currently demonstrat es low risk for falls and no significan t cognitive decline. Advance directives in place. Type 2 amy betes mellitus without complication 228671119 E11.9 Has been well controlled . Due for reassessme nt. Body mass index 30+ - obesity 343872898 Z68.39 Target weight 130. May need note for wt watchers. Gastroesop hageal reflux disease 164502594 K21.9 Well controlled without warning signs. Will monitor. Hypothyroidism 03331542 E03.9 Clinically euthyroid. WIll check labs. Essential hypertension 63529161 I10 Joint pain in left hand 4811717312 181818 M25.542 Likely OA. Tylenol and splint advised. Call inb/worse. Pain of mu ltiple joints 34618648 M25.50 Obesity 431578344 E66.9 Pure hypercholesterolemia 578340160 E78.01 Reassess following statin dose titration. [id number] Poncho Britton MD Main Office [address] [facility] [address] [place] [address] 06/15/2018 10:39:54 06/15/2018 12:16:17 Flank pain 556113761 R10.9 ? musculoske letal vs early shingles vs recurrent nephrolith iasis. does not have a gallbladde r. Will need further eval if persistent /worse or if new symptoms develop. Referred otalgia 1077762 8 H92.01 [id number] Poncho Britton MD Main Office [address] [address] [place] [address] 07/27/2018 09:52:57 07/27/2018 10:34:56 Pure hypercholesterolemia 155587809 E78.01 LDL at goal on moderate dose statin. Will continue current regimen. Type 2 amy betes mellitus without complication 889394964 E11.9 Well controlled without meds. Continue diet/lifes tyle changes and monitoring . Essential hypertension 18733044 I10 Hypothyroidism 38619573 E03.9 Clinically euthyroid. WIll check labs. Gastroesop hageal reflux disease 320976947 K21.9 Well controlled on PPI. Will try transition ing to HS@B in a few weeks and call with any problems. [id number] Jairo Campbell MD Main Office [address] [facility] [address] [place] [address] 10/03/2018 09:40:27 10/03/2018 10:31:19 Dysuria 01974399 R30.0 Urinary tr act infectious disease 15451994 N39.0 Cough 04619651 R05 [id number] Poncho Britton MD Main Office [address] [facility] [address] [place] [address] 12/28/2018 11:21:40 12/28/2018 12:16:49 Spontaneous ecchymosis 180026107 R23.3 Seems spontaneou s but no other bleeding symptoms. Will screen for anatomic issue that might be predisposi ng her to vessel injury as well as coagulopat hy. Suspect that the corticoste roid injection might be a factor. WIll monitor clinically if labs and imaging all normal and no other symptoms develop. [id number] Poncho Britton MD Main Office [address] [facility] [address] [place] [address] 02/02/2019 10:40:23 02/02/2019 11:46:11 Cough 60794897 R05 Suspect viral vs allergic symptoms are causing mild asthma flare. Will rule out pneumonia with CXR, otherwise will focus on inflammati on reduction. Restart nasal steroid nora, and add antihistam ine if symptoms persist. Call inb/worse. Mild inter mittent asthma 124470618 J45.20 [id number] Poncho Britton MD Main Office [address] [facility] [address] [place] [address] 03/11/2019 08:54:34 03/11/2019 09:53:38 Adult health examination 971489067 Z00.00 Immunizati on status and screening utd [...] Type 2 amy betes mellitus without complication 960525078 E11.9 Well controlled without meds. Continue diet/lifes tyle changes and monitoring . Body mass index 30+ - obesity 697446575 Z68.31 Target weight 130. May need note for wt watchers. Asthma 108137193 J45.20 Allergic rhinitis 270662 04 J30.2 Osteopenia 185066980 M85 .80 Regular weight bearing exercise advised as well as adequate dietary Ca and vit D intake. Due for f/u BND. Varicella vaccination 68 547444 Z23 Obesity 294201647 E66.9 [id number] Dayana Burrell Main Office [address] [facility] [address] [place] [address] 06/03/2019 10:00:45 06/03/2019 10:59:49 Low back pain 806637927 M54.5 Non focal exam. Likely related to contusion. Call if symptoms worsen or persist for more than 4 weeks. Headache 91097485 R51 Secondary to contusion. Appropriat e heat/cold and APAP/NSAID use advised. Concussion injury of brain 997851038 S06.0X0A Closed injury of head 45 53373654 06 S09.90XA Mechanism of injury, exam findings and overall risk makes intracrani al hemmorhage unlikely. Imaging deferred but if symptoms persist or worsen pt understand s need to go to ED. Fall on sa me level from slipping, tripping or stumbling 072453064 W01.10XA [id number] Poncho Brittno MD Main Office [address] [facility] [address] [facility] [place] [address] 07/13/2019 08:04:45 07/13/2019 09:14:41 Essential hypertension 38265276 I10 Well controlled , continue current regimen . Type 2 amy betes mellitus without complication 335377709 E11.9 Well controlled without meds. Continue diet/lifes tyle changes and monitoring . Osteoarthr itis of right knee joint 2883309939 62605 M17.11 Likely similar issue as on the left. Will ask ortho to evaluate further. Screening for malignant neoplasm of colon 061133279 Z12.11 Gastroesop hageal reflux disease 091047513 K21.9 Will switch to different H2B. Osteopenia 562421562 M85 .80 Regular weight bearing exercise advised as well as adequate dietary Ca and vit D intake advised. [id number] Kait Spangler Main Office [address] [facility] [address] [facility] [place] [address] 09/27/2019 14:19:49 09/27/2019 15:31:53 Palpitations 69035297 R00.2 Pt with new onset of intermitte [...] she will go to the ED. Tachycardia 6872188 R00. 0 pulse up slightly from baseline, will discuss with cardiology . NO afib noted not SVT. HR 79 at discharge. [id number] Poncho Britton MD Main Office [address] [facility] [address] [facility] [place] [address] 01/24/2020 08:14:21 01/24/2020 10:00:06 Type 2 diabetes mellitus without complication 690976276 E11.9 Well controlled without meds. Continue diet/lifes tyle changes and monitoring . Need new glucose monitor. Essential hypertension 36849413 I10 Well controlled , continue current regimen . Pure hypercholesterolemia 635562664 E78.01 LDL at goal on moderate dose statin. Will continue current regimen. Hypothyroidism 68257867 E03.9 Clinically euthyroid. WIll recheck labs. Osteopenia 678522310 M85 .80 Regular weight bearing exercise advised as well as adequate dietary Ca and vit D intake advised. Vitamin d level is pending. Osteoarthr itis of joint of left hand 2462679194 40253 M19.042 Improved since injection by Dr. Ramos. Palpitations 38092598 R0 0.2 Had unremarkab le cardiology eval including echo and holter. Will monitor. Advised to call if affording symptoms or correlatin g to exertion. [id number] Poncho Britton MD Main Office [address] [facility] [address] [place] [address] 03/13/2020 08:14:03 03/13/2020 09:28:27 Adult health examination 104114038 Z00.00 Immunizati on status and screening utd based on risk factors. Flu advised in the Fall. Regular dental and ophtho care advised as well as seat belt and sunscreen use. Distracted driving discussed. Breast, cervical and colon cancer screening are current. Currently demonstrat es low risk for falls and no significan t cognitive decline. Advance directives in place. Varicella vaccination 68 850799 Z23 pt declines second shot after poor reaction to initial Screening for malignant neoplasm of colon 923492029 Z12.11 Needs new GI MD. Type 2 amy betes mellitus without complication 613371720 E11.9 Well controlled without meds. Continue diet/lifes tyle changes and monitoring . Need new glucose monitor. Allergic rhinitis 274241 04 J30.2 Dilatation of aorta 2666 0001 I71.2 Due for f/u in 10/2020 Chronic sinusitis 571006 00 J32.9 Symptoms present for awhile and suspect that allergies have set her up for a secondary bacterial process. Periumbilical pain 40331 3005 R10.33 See if related to hernia. [id number] Jairo Campbell MD [facility] [address] [facility] [address] [place] [address] 04/29/2020 08:19:33 04/29/2020 09:42:58 Chronic recurrent sinusitis 378825423 J32.9 Recently treated with abx so will not repeat. Recommend restarting a nasal spray (something other than flonase) and call next week if not improving and I will consider another abx at that point. [id number] Poncho Britton MD Main Office [address] [address] [place] [address] 06/13/2020 15:27:49 06/13/2020 16:01:46 Fall on same level from slipping, tripping or stumbling 688734809 W01.10XA Closed injury of head 45 00086164 06 S09.90XA Sounds like this was strictly a mechanical Fall and based on history unlikely to be related to a neurocardi ac event. Will defer further evaluation at this time. Advised to call if symptoms recur to any degree. Essential hypertension 16482577 I10 Well controlled , continue current regimen. No evidence that hypotensio n was a factor with her fall. [id number] Dayana Burrell [facility] [address] [address] [place] [address] 06/30/2020 13:02:26 06/30/2020 14:39:43 Upper respiratory infection 73813394 J06.9 salt water gargles, otc pain medication as needed, steam, , otc cough med prn, call if not improving. If covid positive needs to quanantine for 7-14 days Counseling 534346594 Z71 .9 Health advice, education or counseling done for COVID 19 Exposure t o viral disease 2689839197 33252 Z03.818 covid testing today, quarantine until test results are back [id number] Poncho Britton MD Main Office [address] [facility] [address] [place] [address] 03/15/2021 10:04:29 03/15/2021 10:46:07 Adult health examination 356055312 Z00.00 Immunizati on status and screening utd based on risk factors. Flu advised in the Fall. Regular dental and ophtho care advised as well as seat belt and sunscreen use. Distracted driving discussed. Breast, cervical and colon cancer screening are current. Currently demonstrat es low risk for falls and no significan t cognitive decline. Advance directives in place. Essential hypertension 51041100 I10 Well controlled , continue current regimen. No evidence that hypotensio n was a factor with her fall. Hypothyroidism 66273744 E03.9 Clinically euthyroid. WIll recheck labs. Type 2 amy betes mellitus without complication 503514453 E11.9 Well controlled without meds. Continue diet/lifes tyle changes and monitoring . Need new glucose monitor. Pure hypercholesterolemia 696585745 E78.01 LDL at goal on moderate dose statin. Will continue current regimen. Screening for malignant neoplasm of breast 129204504 Z12.39 Pt declines screening based on low risk history and age. Dilatation of aorta 2666 0001 I71.2 Due for f/u in 10/2020, pt will schedule appt with cards nora Osteoarthr itis of knee 423180526 M17.11 Ischemic colitis 5096927 4 K55.9 Noted on recent colonoscop y. Continue risk factor reduction, and ASA. Advance di rective discussed with patient 367512431 Z71.89 HCP status reviewed and discussed. HCP/MOLST forms provided Osteopenia 671728952 M85 .80 Regular weight bearing exercise advised as well as adequate dietary Ca and vit D intake advised. Vitamin d level is pending. Paronychia of toe 971732 002 L03.032 1st digit call inb/worse. [id number] Poncho Britton MD Main Office [address] [facility] [address] [place] [address] 06/12/2021 13:31:36 06/12/2021 14:21:17 Hypokalemia 22239274 E87.6 Likely from indapamide which she is on for kidney stone prophylaxi s. Will supplement and reassess. Osteoarthr itis of knee 620019651 M17.11 Strain of neck muscle 36 2057624 S16.1XXA Likely related to soft tissue injury. Will try low dose muscle relaxant, and good hydration advised. Consider PT referral inb/worse. Asthma 601157104 J45.20 [id number] Poncho Britton MD Main Office [address] [facility] [address] [place] [address] 07/17/2021 09:15:09 07/17/2021 10:09:27 Essential hypertension 26215969 I10 Well controlled , continue current regimen. No evidence that hypotensio n was a factor with her fall. Hypothyroidism 19056631 E03.9 Clinically euthyroid. WIll recheck labs. Type 2 amy betes mellitus without complication 314535609 E11.9 Well controlled without meds. Continue diet/lifes tyle changes and monitoring . Need new glucose monitor. Chronic sinusitis 055818 00 J32.9 Symptoms present for awhile and suspect that allergies have set her up for a secondary bacterial process. Advised to start abx if steroid course doesn't help. Pain of ri ght shoulder joint 1206689136 7826115 M25.511 c/w bursitis. Will ask rheum to evaluate and consider injection. [id number] Poncho Britton MD Main Office [address] [facility] [address] [place] [address] 11/15/2021 09:59:50 11/15/2021 10:54:59 Essential hypertension 01313016 I10 Well controlled , continue current regimen. Type 2 amy betes mellitus without complication 386862547 E11.9 Well controlled without meds. Continue diet/lifes tyle changes and monitoring . Need new glucose monitor. Kidney stone 75394757 N2 0.0 This is why she is on diuretic. Will continue potassium supplement as long as this is the case. Hypothyroidism 65730376 E03.9 Clinically euthyroid. Will monitor labs. Obstructiv e sleep apnea syndrome 09199588 G47.33 Using CPAP. Having symptoms. Will assess for treatment effectiven ess. Hypokalemia 83973763 E87 .6 Likely from indapamide which she is on for kidney stone prophylaxi s. Will supplement and reassess. 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 Had normal cardiac CT recently.P t states that anxiety is the cause of c/p -- has had sig stressors lately, mireille c 's health / moving him to snf Anxiety 39731504 F41.9 Pt did not take hydroxyzin e.continue sertaline and tapering of buproprion as dir by psychiatri c nurse practition er Gastroesop hageal reflux disease 988167704 K21.9 Pt on pepcid for GERd, tolerates it well. No PPI.Was on omeprazole for 2 weeks a few years and did not tolerate it and so was discontinu ed. Hypokalemia 03263419 E87 .6 recheck bmp Essential hypertension 77867926 I10 bp stable - cont meds as dir [id number] Poncho Britton MD Main Office [address] [address] [place] [address] 05/21/2022 13:54:04 05/21/2022 15:23:00 Adult health examination 995221366 Z00.00 Immunizati on status and screening utd [...] Type 2 amy betes mellitus without complication 057141173 E11.9 Has been well controlled without meds. Continue diet/lifes tyle changes and monitoring . Need new glucose monitor. Optho exam utd Pure hypercholesterolemia 982406224 E78.01 LDL at goal on moderate dose statin. Will continue current regimen. Hypothyroidism 56084078 E03.9 Clinically euthyroid. Will monitor labs. Essential hypertension 24069967 I10 Well controlled , continue current regimen. Screening for malignant neoplasm of breast 523958646 Z12.39 Pt declines screening based on low risk history and age. Pain of le ft shoulder joint 4624574112 9272134 M25.512 Will try home PT and call for ortho eval inb/worse. Headache 39509970 R51.9 Worsening, with diplopia, and atypical. No recent intracrani al imaging. Diplopia 23285259 H53.2 Hypokalemia 76461253 E87 .6 Likely from indapamide which she is on for kidney stone prophylaxi s. Will comply better with supplement and reassess. Major depr ession single episode, in partial remission 65935466 F32.4 Symptoms well controlled on SSRI/bupro prion Obstructiv e sleep apnea syndrome 31583642 G47.33 Using CPAP. Having symptoms. Will assess for treatment effectiven ess. Osteoarthr itis of knee 979950136 M17.11 Scheduling right TKR Body mass index 25-29 - overweight 396408216 E66.3 Z68.28 Dilatation of aorta 2666 0001 I71.[address] angio that was unremarkab le. Following with cardiology . [id number] Danae Rubin RN Main Office [address] [facility] [address] [facility] [place] [address] 06/26/2022 11:22:10 07/03/2022 11:39:24 [id number] Poncho Britton MD Main Office [address] [facility] [address] [facility] [place] [address] 08/20/2022 14:34:03 08/20/2022 15:25:56 Fatigue 08580496 R53.83 Potentiall y multifacto rial. Will reduce citalopram to 20mg and let me know how symptoms are impacted. Screen for common metabolic etiologies including reassess of hypothyroi d/diabetes status. Hypothyroidism 56015826 E03.9 Clinically euthyroid. Will monitor labs. Major depr ession single episode, in partial remission 81156938 F32.4 Wonder if citalopram is affording fatigue. Will try reducing SSRI dose which was titrated prior to worsening symptoms. Obstructiv e sleep apnea syndrome 36965619 G47.33 Off of CPAP, has sleep study 08/29. Type 2 amy betes mellitus without complication 036808937 E11.9 Has been well controlled without meds to this point. Dilatation of aorta 2666 0001 I71.21 3.7cm ascending aortic dilation followed by cardiology . [id number] Bernardo Dumont MD Main Office [address] [facility] [address] [facility] [place] [address] 10/26/2022 10:42:33 10/26/2022 12:14:00 Herpes zoster 7314541 B02.9 vesicular lesion will treat for shingles.A dvised to keep lesion covered.Or ders per below [id number] MAY MONROE MD Main Office [address] [facility] [address] [facility] [place] [address] 11/08/2022 14:06:31 11/08/2022 15:03:13 Herpes zoster 6110129 B02.9 - improved, no new vesicles however erythema and tenderness still present- completed valacyclov ir treatment- will continue gabapentin treatment due to continued pain- can c/w lidocaine cream as needed Atypical chest pain 1025 41485 R07.89 - pain located on the right side at the side of the recent shingles eruptions- pain most likely coming from the shingles virus than a cardiac etiology- EKG was done for completene ss which was normal (no new changes from previous EKG)> pt has inverted t-waves and arrhythmia noted however this not new findings Swelling o f ankle joint 271778465 M25.471 - left sided worse than the right- suspect venous insufficie ncy- ordered ABDULLAHI/PVR for further evaluation - pt advised to start using compressio n stockings [id number] Poncho Britton MD Main Office [address] [facility] [address] [facility] [place] [address] 01/06/2023 12:36:21 01/06/2023 13:22:44 Pure hypercholesterolemia 169145479 E78.01 LDL at goal on moderate dose statin. Will continue current regimen. Essential hypertension 03541896 I10 Well controlled , continue current regimen. Type 2 amy betes mellitus without complication 692231834 E11.9 Has been well controlled without meds to this point. Hypothyroidism 16373825 E03.9 Clinically euthyroid. Will continue current dose. [id number] Poncho Britton MD Main Office [address] [place] [address] 05/20/2023 13:57:47 05/20/2023 14:41:08 Fatigue 98696940 R53.83 Potentiall y multifacto rial. . Screen for common metabolic etiologies including reassess of hypothyroi d/diabetes status. Possibly viral or nutritiona l issues. Lesion of tongue 7637767 05 K14.9 Will ask oral surgeon to evaluate and consider bx if persistent /worse. Type 2 amy betes mellitus without complication 719731350 E11.9 Has been well controlled without meds to this point. [id number] Poncho Britton MD Main Office [address] [facility] [address] [place] [address] 06/03/2023 13:47:26 06/03/2023 14:43:31 Adult health examination 778415597 Z00.00 Immunizati on status partially updated. COVID booster, and flu advised when available. Regular dental and ophtho care advised as well as seat belt and sunscreen use. Distracted driving discussed. Breast, cervical and colon cancer screening are current. Currently demonstrat es low risk for falls and no significan t cognitive decline. Advance directives in place. Lesion of oral mucosa 10 58025574 684428 K13.70 Previous referral not able to see her. Pt will contact Dr Sinha's office and let me know if there are any further issues getting an eval. Obstructiv e sleep apnea syndrome 72788450 G47.33 Off of CPAP, advised to follow up with sleep medicine if unable to resume. Body mass index 30+ - obesity 490571701 E66.9 Z68.31 Requires a tetanus booster 909989363 Z23 Major depr ession in partial remission 71459324 F32.4 Stable despite numerous stressors on SSRI/bupro pion. Following with therapist as well. Will monitor. Dilatation of aorta 2666 0001 I71.21 3.7cm ascending aortic dilation, no echo since 2019, will arrange. Type 2 amy betes mellitus without complication 754126540 E11.9 Has been well controlled without meds to this point. Pure hypercholesterolemia 931896453 E78.01 LDL at goal on moderate dose statin. Will continue current regimen. [id number] Poncho Britton MD Main Office [address] [facility] [address] [place] [address] 11/03/2023 14:15:21 11/03/2023 15:04:58 Essential hypertension 31922562 I10 Well controlled , continue current regimen. Chest wall pain 69009427 6 R07.89 c/w pectoralis muscle strain likely from lifting/co ugh. No palpable abnormalit y on exam. Would refer for imaging if persistent /worse or palpable abnormalit y identified . Type 2 amy betes mellitus without complication 603139265 E11.9 Has been well controlled without meds to this point. Mitral prudencio ve regurgitation 42623431 I34.0 Asymptmati c, will monitor. [id number] Poncho Britton MD Main Office [address] [facility] [address] [place] [address] 03/15/2024 13:22:36 03/15/2024 14:32:07 Fatigue 07239288 R53.83 Potentiall y multifacto rial. . Screen for common metabolic etiologies including reassess of hypothyroi d/diabetes status. Possibly related to mood issues or medication s. Essential hypertension 54747156 I10 Well controlled , continue current regimen. Possible contributo r as well but inly on diuretic. Adequate hydration techniques discussed. Type 2 amy betes mellitus without complication 344867211 E11.9 Has been well controlled without meds to this point. Mitral prudencio ve regurgitation 15511376 I34.0 Asymptomat ic, will monitor. Obstructiv e sleep apnea syndrome 94212200 G47.33 Off of CPAP, advised to follow up with sleep medicine if fatigue persists. Did see them earlier this month and it wasn't felt that her degree of apnea was that significan t. [id number] Poncho Britton MD Main Office [address] [facility] [address] [place] [address] 05/03/2024 10:39:38 05/03/2024 11:42:07 Lightheadedness 682020426 R42 Suspect that dehydratio n from heat, diuretic therapy and poor H2O intake. Increased water intake advised. No evidence to suggest that this is cardiac related. Sinus tachycardia 011037 01 R00.0 Also c/w poor hydration. Thyroid labs normal. Nausea 379319550 R11.0 Possibly from gastritis secondary to stress, steroid injection and ASA use. Will d/c ASA dn switch from famotidine to omeprazole for short term. Essential hypertension 00766523 I10 Well controlled , continue current regimen. Possible contributo r as well but only on diuretic. Adequate hydration techniques discussed. Total bili smith above reference range 8048289346 40272 R17 Pt is s/p cholecyste ctomy, will recheck and consider imaging if abnormalit ies and symptoms persist. [id number] Hal Reich MD Main Office [address] [place] [address] 05/24/2024 15:22:34 05/24/2024 16:10:33 Herpes zoster 0311645 B02.9 [id number] Poncho Britton MD Main Office [address] [place] [facility] [place] [address] 06/07/2024 09:37:05 06/07/2024 10:30:47 Adult health examination 704161721 Z00.00 COVID booster advised via local pharmacy. Regular dental and ophtho care advised as well as seat belt and sunscreen use. Distracted driving discussed. Breast, cervical and colon cancer screening are current. Currently demonstrat es low risk for falls and no significan t cognitive decline. Advance directives in place. Influenza vaccine needed [id number] 106 Z23 Body mass index 30+ - obesity 367668493 E66.9 Z68.30 Obstructiv e sleep apnea syndrome 43085097 G47.33 Off of CPAP, advised to follow up with sleep medicine if unable to resume. Major depr ession in partial remission 04043223 F32.4 Stable despite numerous stressors on SSRI/bupro pion. Following with therapist as well. Will monitor. Type 2 amy betes mellitus without complication 149522491 E11.9 Has been well controlled without meds to this point. Pure hypercholesterolemia 137058401 E78.01 LDL at goal on moderate dose statin. Will continue current regimen. Asthma 321526229 J45.20 Well controlled based on bronchodil ator use, will continue. Calcificat ion of coronary artery 598040969 I25.84 Working on risk factor control. Will titrate statin if LDL still >70 on repeat. Aneurysm o f thoracic aorta 150529928 I71.21 3.7cm ascending aortic dilation, stable. Following with cardiology . [id number] Dayana Burrell Main Office [address] [facility] [address] [place] [address] 09/13/2024 14:31:40 09/13/2024 15:38:21 Open wound of left lower leg 4590331729 1841284 S81.802A Wound care advised, barrier cream recommende d. Call if not slowly improving/ worse. Cellulitis of left lower limb [id number] 3905203 L03.116 On appropriat e abx regimen via UC. Advised to continue. [id number] Tika Santana MA Main Office [address] [facility] [address] [place] [address] 09/18/2024 09:07:52 09/18/2024 09:45:12 Pain of left calf 3316233282 060633 M79.662 R/o DVT. D-dimer today, venous ultrasound order placed in. Pt. will continue current antibiotic s. [id number] Bernardo Dumont MD Main Office [address] [facility] [address] [facility] [place] [address] 11/06/2024 10:34:13 11/06/2024 12:28:46 Essential hypertension 73370468 I10 I reviewed the patient? s ECG, [...] if she develops new or worsening symptoms. [id number] Poncho Britton MD Main Office [address] [address] [place] [address] 12/06/2024 10:25:17 12/06/2024 11:18:32 Essential hypertension 43283857 I10 Based on ambulatory BP monitoring better control needed. Will resume indapamide , continue losartan at current dose. Type 2 amy betes mellitus without complication 091675239 E11.9 Has been well controlled without meds to this point, but if >7.5 will need rx, consider metformin vs SGLT2 inhibitor. Asthma 387932517 J45.20 Well controlled based on bronchodil ator use, will continue. Small vess el cerebrovascular disease 608540887 I67.9 Better risk factor control warranted. Memory impairment 509632 006 R41.3 Will screen for potential deficienci es and reimage to rule out new CVA/mass. 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 Will increase to 80mg daily. [id number] John Nesbitt PA-C Main Office [address] [address] [place] [address] 12/15/2024 12:53:45 12/15/2024 14:37:56 Acute sinusitis 32094838 J01.90 recommend probiotics while on abx Herpes labialis 9446295 B00.1 pt c/o early sxs of cold sore [id number] Poncho Britton MD Main Office [address] [address] [place] [address] 12/20/2024 10:39:07 12/20/2024 12:19:30 Anxiety 49611757 F41.1 Seems worse since stopping SSRI and effectivel y being on buproprion alone. Resume SSRI and see if fluoxetine is better tolerated and effective. Pt working on connecting with a therapist and is going to stopp following with Milly because of logistical issues. Major depr ession single episode, in partial remission 81229312 F32.4 Seems worse since stopping SSRI and effectivel y being on buproprion alone. Will continue buproprion as well for now. Essential hypertension 44320783 I10 Well controlled on diuretic with K supplement . Will confirm that level has normalized . Memory impairment 281809 006 R41.3 I suspect that this is related to the poorly controlled mood issues. Will defer further testing and monitor with resumption of SSRI therapy. [id number] Poncho Britton MD Main Office [address] [facility] [address] [facility] [place] [address] 01/04/2025 10:45:02 01/06/2025 17:12:09 [id number] MAY MONROE MD Main Office [address] [facility] [place] [address] 01/08/2025 09:22:36 01/08/2025 10:37:37 Recurrent falls 012117116 R29.6 Do believe that the reasons for [...] PATIENT IS NOT ON LOSARTAN EVEN THOUGH DARIONTENT MENTIONED SHE WAS TAKING IT. ADVISED TO 1/2 INDAPAMIDE INSTEAD- will call cardiology to ask about scheduling of holter and to discuss the low BP- will touch base with patient on Friday as she will be taking her BP twice daily- advised to continue to use the wheelchair has patient is a very big fall risk- RTC in one week History of fall [id number] 9 Z91.81 - has been having several falls since December 2024- c/w home physical therapy- after completion of home physical therapy would strongly recommend balance PT with [facility] Transition from acute care to self-care 1403710790 88130 Z76.89 - reviewed hospital course Hypothyroidism 89817276 E03.9 - currently unsure if patient is taking levothyrox ine- pt mentions she takes it but daughter did not read it to MD while on the phone- will check thyroid function Coronary atherosclerosis 807323241 I25.10 Tremor 34023640 R25.1 - see above Health Concerns Section Related Observation LastModified by Organization Detai ls LastModified Time None Recorded Concern Status LastModified by Organization Details LastModified Time None Recorded Advance Directives Directive Y: HCP/ Son-Adrian Dtr-Almacristin en Payers Encounter Date Sequence Insurance Name Policy Number Policy Gonzales Covered Member ID Gonzales Member ID Guarantor Name 12/06/2024 1 [place] [employer] Nataliia Amado [id number] Nataliia Amado 12/06/2024 2 [facility] [id number] Nataliia Amado [id number] Nataliia Amado 12/15/2024 1 [place] [employer] Nataliia B Amado [id number] Nataliia B Amado 12/15/2024 2 [facility]) [id number] Nataliia B B Amado [id number] Nataliia B Amado 12/20/2024 1 [place] [employer] Nataliia B Amado [id number] Nataliia B Amado 12/20/2024 2 [facility]) [id number] Nataliia B B Amado [id number] Nataliia B Amado 01/04/2025 1 [place] [employer] Nataliia B Amado [id number] Nataliia B Amado 01/04/2025 2 [facility]) [id number] Nataliia B B Amado [id number] Natlaiia B Amado 01/08/2025 1 [place] [employer] Nataliia B Amado [id number] Nataliia B Amado 01/08/2025 2 [facility]) [id number] Nataliia B B Amado [id number] Nataliia B Amado Notes Date Note Type [...] Context:normal thyroid levels Poncho Britton MD [address] [address], [place], [address], [facility] 12/06/2024 12:31:34 12/15/2024 text/html Nasal congestion x1 [...] feeling of fullness. John Nesbitt PA-C [address] [address], [place], [address], [facility] 12/15/2024 15:18:41 12/20/2024 text/html Anxiety/Depressi onRepo rted [...] but K was low. Poncho Britton MD [address] [address], [place], [address], [facility] 12/20/2024 13:02:38 01/04/2025 text/html Hospitalization Contact RecordReported bypatient.Follow UpHospital: [facility]; admit date: (Please enter in format [...] pt to return call Pt presented to [facility] after a fall. Pt fell at [...] services. MEDS RECONCILED Poncho Britton MD [address] [facility] [address] [facility], [place], [address], [facility] 01/06/2025 17:12:09 01/08/2025 text/html Hospitalization Contact RecordReported bypatient.Follow UpHospital: [facility]; admit date: (Please enter in format [...] pt to return call Pt presented to [facility] after a fall. Pt fell at [...] or has it scheduled. MAY MONROE MD [address] [address], [place], [address], [facility] 01/08/2025 15:45:02 OBGyn Episode No OBEpisode recorded.
[2025-01-24 06:08] LABS: Basophils Absolute Auto 0.1 X10*3/uL (0.0-0.2); Basophils Percent Auto 0.6 % (0-2); Eosinophils Absolute Auto 0.1 X10*3/uL (0.0-0.4); Eosinophils Percent Auto 1.3 % (0-4); Hematocrit 39.7 % (37.0-47.0); Hemoglobin 13.1 g/dl (12.0-16.0); Imm Gran Abs Auto 0.04 X10*3/uL (0.00-0.03); Imm Gran Pct Auto 0.5 % (0.0-0.4); Lymphocytes Absolute Auto 1.9 X10*3/uL (1.2-4.9); Mean Corpuscular Volume 97.1 fL (80.0-98.0); Mean Platelet Volume 10.6 fL (9.4-12.3); Monocytes Absolute Auto 0.7 X10*3/uL (0.1-1.2); Monocytes Percent Auto 7.5 % (2-11); Neutrophils Absolute Auto 5.9 x10*3/uL (2.0-8.3); Neutrophils Percent Auto 68.1 % (45-73); Platelet Count 290 X10*3/uL (160-400); Red Blood Count 4.09 X10*6/uL (4.20-5.50); Red Cell Distribution Width 12.7 % (11.0-16.0); White Blood Count 8.6 X10*3/uL (4.8-10.8)
[2025-01-24 06:29] LABS: Anion Gap 14 (12-20); Blood Urea Nitrogen 8 mg/dL (9-16); Calcium 8.9 mg/dL (8.4-10.2); Carbon Dioxide 22 mmol/L (22-29); Chloride 108 mmol/L (96-108); Estimated Glomerular Filt Rate > 60; Glucose Random 132 mg/dL (60-115); Potassium 3.9 mmol/L (3.3-5.1); Sodium 140 mmol/L (135-145)
== END 2025-01-24 05:56 | disposition home or self-care (01) ==
LOC: HO.MMNH1L 05:55
PROVIDERS: Visit Provider Nurse Practitioner
DX: I10 Essential (primary) hypertension (principal); E03.9 Hypothyroidism, unspecified
CPT/HCPCS: 36415; 80048; 85025